=== PATIENT | male | born 1935 | race Caucasian/White ===

== ENCOUNTER 2016-09-08 08:56 | Emergency (ER) | payer OTHER ==
[2016-09-08 09:03] VITALS: RESP 14; TEMP 98.4
--- NOTE | 2016-09-08 09:13 | CPEKG ---
Heart Rate: 71 RR Interval: 845 P-R Interval: 156 QRSD Interval: 102 QT Interval: 412 QTC Interval: 448 P [place]: 61 QRS [place]: 59 T Wave [place]: 78 EKG Severity - ABNORMAL ECG - EKG Impression: ATRIAL-PACED COMPLEXES EKG Impression: LEFT ATRIAL ABNORMALITY EKG Impression: ABNRM R PROG, CONSIDER ASMI OR LEAD PLACEMENT Electronically Signed By: Yolis Swain 08-Sep-2016 16:48:44
[2016-09-08] MEDS ORDERED: ASPIRIN 81 MG CHEWABLE TAB ONE (09:15)
[2016-09-08] MEDS ORDERED: ASPIRIN 81 MG CHEWABLE TAB PO ONE (09:19)
--- NOTE | 2016-09-08 09:20 | EDPHY ---
H & P Stated Complaint: CP since resolved Time Seen by Provider: 09/08/16 09:03 HPI/ROS: CHIEF COMPLAINT: Chest pain HISTORY OF PRESENT ILLNESS: This is a 80-year-old male with known coronary artery disease status post AK about 12 years ago. He has pacemaker in place. His pacemaker was checked about 6 months ago and is due to be checked again this week. He presents this morning after experiencing substernal chest pain throughout the night. Began with discomfort mid afternoon yesterday, after eating Somali food. He thought that this was due to his GERD and he took ranitidine with some relief. However around 8:00 p.m. he again noticed substernal chest pain. He took a 2nd ranitidine and some Pepto-Bismol. Pain continued on and off throughout the night. It was associated with nausea and diaphoresis. There was no radiation. He states that this discomfort was similar to what he experienced with his myocardial infarction. He is no longer having chest pain but comes to the emergency department for further evaluation. His only complaint at this time is of dry mouth. REVIEW OF SYSTEMS: A ten point review of systems was performed and is negative with the exception of the items mentioned in the HPI. Source: Patient Exam Limitations: No limitations - Personal History Current Tetanus/Diphtheria Vaccine: Yes Current Tetanus Diphtheria and Acellular Pertussis (TDAP): Yes Tetanus Vaccine Date: 2005 - Medical/Surgical History Hx Asthma: Yes Hx Chronic Respiratory Disease: No Hx Diabetes: No Hx Cardiac Disease: Yes Hx Renal Disease: No Hx Cirrhosis: No Hx Alcoholism: No Hx HIV/AIDS: No Hx Splenectomy or Spleen Trauma: No Other PMH: AK, stents, pacemaker, CPAP, IBS, GERD, ?COPD - Social History Smoking Status: Former smoker - Physical Exam Exam: General Appearance: Alert. Vital signs reviewed. Blood pressure at triage 206 /140. Eyes: Pupils equal and round, no conjunctival injection, no discharge. Anicteric. ENT, Mouth: Mucous membranes are moist, no oropharyngeal erythema or edema. Neck: No lymphadenopathy, supple. Respiratory: Lungs are clear to auscultation; no wheezes, rales, or rhonchi. Cardiovascular: Regular rate and rhythm; no murmur, rub, or gallop. Gastrointestinal: Abdomen is soft and nontender, no masses or organomegaly, bowel sounds normal. Skin: Warm and dry, no rashes on exposed skin, normal color. Back: Nontender to palpation over the thoracolumbar spine. No CVAT. Extremities: No lower extremity edema, no calf tenderness or swelling. Neurological: Alert and oriented. Moving all four extremities easily and equally. Psychiatric: Normal affect. Constitutional: Initial Vital Signs Temperature (C) 36.9 C 09/08/16 09:01 Heart Rate 71 09/08/16 09:01 Respiratory Rate 14 09/08/16 09:01 Blood Pressure 206/140 H 09/08/16 09:01 O2 Sat (%) 97 09/08/16 09:01 O2 Delivery Mode Room Air Allergies/Adverse Reactions: Sulfa (Sulfonamide Antibiotics) Allergy (Unknown, Verified 02/25/15 10:32) Hives hydrochlorothiazide [From Dyazide] Allergy (Verified 02/25/15 10:32) triamterene [Triamterene] Allergy (Verified 02/25/15 10:32) POLLEN Allergy (Mild, Uncoded 02/25/15 10:32) RUNNY NOSE Home Medications: Medication Instructions Recorded Atorvastatin Calcium [Lipitor 40 40 mg PO HS 05/24/12 mg (*)] Budesonide/Formoterol 160/4.5 2 puffs IH BID 05/24/12 [Symbicort 160-4.5 Mcg Inh (*)] Cholecalciferol Vit D3 [Vitamin D3 1,000 units PO DAILY 05/24/12 (*)] Herbals/Supplements -Info Only 1 tab PO BID 05/24/12 Multivitamins [Multivitamin (*)] 1 tab PO DAILY 05/24/12 Polyethylene Glycol 3350 [Miralax 17 gm PO BID 05/24/12 17 gm (*)] Prasugrel HCl [Effient 10mg (*)] 10 mg PO DAILY 05/24/12 Ranitidine HCl [Ranitidine HCl 150 300 mg PO HS 05/24/12 mg] ESOMEPRAZOLE MAG TRIHYDRATE 40 mg PO DAILY 10/03/12 [NEXIUM] Hydrocodone Bit/Acetaminophen 1 tab PO Q6 PRN 10/03/12 [Vicodin 5/500] Albuterol [Proventil Inhaler HFA 1 - 2 puffs IH Q4H PRN 06/06/14 (*)] Aspirin [Aspirin 81mg (*)] 162 mg PO HS 06/06/14 Cetirizine [ZyrTEC 10 mg (*)] 10 mg PO HS 06/06/14 Citalopram [CeleXA 20 MG] 40 mg PO DAILY 06/06/14 AMITRIPTYLINE HCL 02/25/15 Medical Decision Making - Diagnostics EKG Interpretation: Twelve lead EKG interpreted by me in [facility]. Atrial paced rhythm. No change compared to previous. Imaging: Two view CXR viewed by me in PACS. No infiltrate, CHF, cardiomegaly. ED Course/Re-evaluation: 80 year old male with chest pain yesterday (now resolved) and known h/o CAD. He also has history of GERD. Evaluation in ED included EKG (paced, no change from previous), CXR that does not show etiology of chest pain, and labs with normal troponin. He remained pain free in the ED. I spoke with Dominguez Washington NP, and an appointment is being made for him this week. He also has an appointment for a pacemaker check this week (I do not suspect pacemaker failure). He understands that the etiology of his pain remains unclear. Cardiac source is less likely, given normal troponin more than six hours out from his last episode of chest pain. He is not interested in hospitalization for serial enzymes and understands the danger signs that should prompt his immediate return. He will continue all of his medications, including GERD medications. He was hypertensive at triage, at DC his BP was improved--143/74. In this setting I considered a ddx of chest pain including but not limited to myocardial ischemia, pulmonary embolus, chest wall pain, pleural inflammation, pulmonary infectious causes, and GERD/PUD. - Data Points Laboratory Results: Laboratory Results 09/08/16 09:22 09/08/16 09:22 Medications Given: Discontinued Medications Aspirin (Aspirin) 324 mg PO EDNOW ONE Stop: 09/08/16 09:20 Last Admin: 09/08/16 09:20 Dose: 324 mg Departure - Departure Disposition: Home, Routine, Self-Care Clinical Impression: GERD (gastroesophageal reflux disease) Qualifiers: Esophagitis presence: without esophagitis Qualified Code(s): K21.9 - Gastro- esophageal reflux disease without esophagitis Chest pain Qualifiers: Chest pain type: other chest pain Qualified Code(s): R07.89 - Other chest pain ; R07.8 - Other chest pain Condition: Good Instructions: Chest Pain (ED), Gastroesophageal Reflux Disease (ED) Additional Instructions: [facility] will call you with a time for an appointment this week. They would like for 1 of their doctors our nurse practitioner nurse to see you. You also need to keep the appointment that you have for your pacemaker check. If you develop any more chest pain you need to return to the emergency department immediately. Referrals: Mauricio Garcia MD [Primary Care Provider] - As per Instructions Chris Guzman MD [Medical Doctor] - As per Instructions
[2016-09-08 09:36] LABS: % IMMATURE GRANULYOCYTES 0.3 % (0.0-1.1); ABSOLUTE IMMATURE GRANULOCYTES 0.03 10^3/uL (0.00-0.10); ADD DIFF? NO; ADD MORPH? NO; ADD SCAN? NO; ATYPICAL LYMPHOCYTE FLAG 0 (0-99); FRAGMENT RBC FLAG 0 (0-99); HEMATOCRIT 42.6 % (40.0-51.0); HEMOGLOBIN 15.3 g/dL (13.7-17.5); LEFT SHIFT FLG 0 (0-99); LIPEMIA HEMOLYSIS FLAG 90 (0-99); MEAN CELL HEMOGLOBIN 32.8 pg (27.9-34.1); MEAN CELL HEMOGLOBIN CONCENTR. 35.9 g/dL (32.4-36.7); MEAN CELL VOLUME 91.4 fL (81.5-99.8); MEAN PLATELET VOLUME 10.2 fL (8.7-11.7); PLATELET CLUMPS FLAG 10 (0-99); PLATELET COUNT 189 10^3/uL (150-400); RED BLOOD CELL COUNT 4.66 10^6/uL (4.40-6.38); RED CELL DISTRIBUTION WIDTH 12.1 % (11.5-15.2)
[2016-09-08 09:58] LABS: ANION GAP 11 mEq/L (8-16); CALCIUM 9.4 mg/dL (8.5-10.4); CARBON DIOXIDE 25 mEq/l (22-31); CHLORIDE 95 mEq/L (97-110); CREATININE 0.7 mg/dL (0.7-1.3); GLOMERULAR FILTRATION RATE > 60; GLUCOSE 96 mg/dL (70-100); POTASSIUM 3.8 mEq/L (3.5-5.2); SODIUM 131 mEq/L (134-144)
[2016-09-08 10:10] LABS: TROPONIN I < 0.012 ng/mL (0-0.034)
[2016-09-08 12:34] VITALS: O2SAT 96
[2016-09-08 12:36] VITALS: BP 143/74; PULSE 70
== END 2016-09-08 12:35 | disposition home or self-care (01) ==
DX: K21.9 Gastro-esophageal reflux disease without esophagitis (principal); J45.909 Unspecified asthma, uncomplicated; I25.2 Old myocardial infarction; Z87.891 Personal history of nicotine dependence; Z79.82 Long term (current) use of aspirin; Z95.0 Presence of cardiac pacemaker

== ENCOUNTER → 2016-09-24 | Outpatient (CLI) | payer OTHER | LOC: BHFA 13:30 | PROVIDERS: ATTEND Internal Medicine Cardiovascular Disease | DX: I25.10 Atherosclerotic heart disease of native coronary artery without angina pectoris (principal) | CPT/HCPCS: 78452; 93017; A9500; J2785 ==

== ENCOUNTER 2016-10-17 07:22 | Observation (INO) | payer OTHER ==
[2016-10-17] MEDS ORDERED: FAMOTIDINE 20 MG TAB PO ONE (07:24)
[2016-10-17] MEDS ORDERED: DIAZEPAM 5 MG TAB PO ONE (07:24)
[2016-10-17] MEDS ORDERED: NS 1,000 ML IV ONE (07:24)
[2016-10-17] MEDS ORDERED: diphenhydrAMINE 25 MG CAP PO ONE ×2 (07:24→08:05)
[2016-10-17] MEDS ORDERED: ASPIRIN EC 325 MG TAB PO ONE ×2 (07:24→08:06)
--- NOTE | 2016-10-17 07:53 | CPEKG ---
Heart Rate: 71 RR Interval: 845 P-R Interval: 184 QRSD Interval: 104 QT Interval: 432 QTC Interval: 470 P [place]: 68 QRS [place]: 67 T Wave [place]: 74 EKG Severity - ABNORMAL ECG - EKG Impression: ATRIAL-PACED COMPLEXES EKG Impression: NONSPECIFIC T ABNORMALITIES, LATERAL LEADS Electronically Signed By: Timmy Antonio 17-Oct-2016 12:13:57
[2016-10-17] MEDS ORDERED: FAMOTIDINE 20 MG TAB ONE (08:05)
[2016-10-17] MEDS ORDERED: DIAZEPAM 5 MG TAB ONE (08:06)
[2016-10-17 08:09] LABS: % IMMATURE GRANULYOCYTES 0.4 % (0.0-1.1); ABSOLUTE IMMATURE GRANULOCYTES 0.03 10^3/uL (0.00-0.10); ADD DIFF? NO; ADD MORPH? NO; ADD SCAN? NO; ATYPICAL LYMPHOCYTE FLAG 0 (0-99); FRAGMENT RBC FLAG 0 (0-99); HEMATOCRIT 41.3 % (40.0-51.0); HEMOGLOBIN 14.4 g/dL (13.7-17.5); LEFT SHIFT FLG 0 (0-99); LIPEMIA HEMOLYSIS FLAG 90 (0-99); MEAN CELL HEMOGLOBIN 31.9 pg (27.9-34.1); MEAN CELL HEMOGLOBIN CONCENTR. 34.9 g/dL (32.4-36.7); MEAN CELL VOLUME 91.6 fL (81.5-99.8); MEAN PLATELET VOLUME 10.3 fL (8.7-11.7); PLATELET CLUMPS FLAG 10 (0-99); PLATELET COUNT 194 10^3/uL (150-400); RED BLOOD CELL COUNT 4.51 10^6/uL (4.40-6.38); RED CELL DISTRIBUTION WIDTH 12.2 % (11.5-15.2)
[2016-10-17 08:19] LABS: INR 1.26 (0.83-1.16); PROTIME(PATIENT) 15.8 SEC (12.0-15.0)
[2016-10-17 08:49] LABS: ANION GAP 8 mEq/L (8-16); CALCIUM 9.5 mg/dL (8.5-10.4); CARBON DIOXIDE 26 mEq/l (22-31); CHLORIDE 99 mEq/L (97-110); CHOLESTEROL 106 mg/dL (140-220); CHOLESTEROL/HDL RATIO 2.16 RATIO (1.00-4.97); CREATININE 0.7 mg/dL (0.7-1.3); GLOMERULAR FILTRATION RATE > 60; GLUCOSE 99 mg/dL (70-100); HIGH DENSITY LIPOPROTEIN 49 mg/dL (40-65); LDL/HDL RATIO 0.96 RATIO (1.00-3.64); LOW DENSITY LIPOPROTEIN 47 mg/dL (80-100); MAGNESIUM 1.9 mg/dL (1.6-2.3); NON-HIGH DENSITY LIPOPROTEIN 57 mg/dL (90-129); POTASSIUM 4.5 mEq/L (3.5-5.2); SODIUM 133 mEq/L (134-144); TRIGLYCERIDE 51 mg/dL (40-150); VERY LOW DENSITY LIPOPROTEINS 10 mg/dL (8-25)
[2016-10-17] MEDS ORDERED: LIDOCAINE 1% 30 ML SDV ONE (08:55)
[2016-10-17] MEDS ORDERED: MIDAZOLAM 2 MG/2 ML VIAL ONE ×3 (08:56→10:24)
[2016-10-17] MEDS ORDERED: IOPAMIDOL (ISOVUE-370) 150 ML BTL IV ONE ×2 (08:56→11:21)
[2016-10-17] MEDS ORDERED: fentaNYL 100 MCG/2 ML INJ ONE ×2 (08:56→09:39)
[2016-10-17] MEDS ORDERED: VERAPAMIL 5 MG/2 ML VIAL ONE (08:56)
[2016-10-17] MEDS ORDERED: HEPARIN 10,000 UNIT/10 ML MDV ONE (08:56)
--- NOTE | 2016-10-17 12:10 | CPEKG ---
Heart Rate: 70 RR Interval: 857 P-R Interval: 156 QRSD Interval: 100 QT Interval: 436 QTC Interval: 471 P [place]: 60 QRS [place]: 37 T Wave [place]: 58 EKG Severity - ABNORMAL ECG - EKG Impression: SINUS RHYTHM EKG Impression: ABNRM R PROG, CONSIDER ASMI OR LEAD PLACEMENT Electronically Signed By: Timmy Antonio 17-Oct-2016 12:13:45
[2016-10-17] MEDS ORDERED: ATROPINE SULFATE 1 MG/10 ML SYR IVP PRN (14:28)
[2016-10-17] MEDS ORDERED: TEMAZEPAM 15 MG CAP PO PRN (14:28)
[2016-10-17] MEDS ORDERED: NITROGLYCERIN 0.4 MG BTL SL PRN (14:28)
[2016-10-17] MEDS ORDERED: ONDANSETRON 4 MG/2 ML VIAL IVP PRN (14:28)
[2016-10-17] MEDS ORDERED: [UNRECOGNIZED DRUG - OTHER] EACHEYE PRN (14:29)
[2016-10-17] MEDS ORDERED: ALBUTEROL 60 PUFFS/8 GM MDI IH PRN (14:29)
[2016-10-17] MEDS ORDERED: PROPYLENE GLYCOL EACHEYE PRN (14:29)
[2016-10-17] MEDS ORDERED: IPRATROPIUM 0.06% NASAL SPRAY EACHNARE PRN (14:29)
[2016-10-17] MEDS ORDERED: PEG EACHEYE PRN (14:29)
[2016-10-17] MEDS ORDERED: CALCIUM CARBONATE 500 MG CHEWABLE TAB PO PRN (14:29)
--- NOTE | 2016-10-17 14:42 | PDDXCAT ---
Diagnostic Cath Note - . Date: 10/17/16 Rn Private Duty: Thomas Indication: Class I/II angina, intolerance to med therapy or failure to respond High-risk criteria on non-invasive testing: stress-induced moderate-size multiple perfusion defects - Procedure Access: right wrist Procedure: left heart catheterization, coronary angiography, left ventriculogram - Materials Left Heart Cath size: 5F Left Heart Cath materials: pigtail, other (SiteSeer) - Findings-Left Heart Catheterization LM: unobstructed LAD: luminal irregularities of 30% LCX: luminal irregularities of 30% RCA: 100% occlusion at the ostium. 95% stenosis in the mid vessel. Diffuse distal 50% stenosis EDP: 15 mm of mercury LVEF: 45% with an inferior aneurysmal akinetic segment Complications: none Estimated blood loss: <50ml Closure method: TR Band Assessment: Recurrent ostial RCA stenosis with InStent restenosis distally. Moderate nonobstructive atherosclerotic disease involving the LAD and circumflex. 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 Plan: Consider ad Hoc PCI of the RCA. Continue aggressive medical therapy. Intervention: After reviewing diagnostic angiograms was elected to proceed with gentle probing of the ostium of the right coronary to get a feel for how chronic the right coronary artery 100% occlusion was. Patient was anticoagulated with heparin. Using a 5 [place] AR1 guiding catheter the right coronary was selectively intubated. Using a 0.014 health care legal assistant 50 wire the ostium was gently probed. The guide catheter prolapse backwards. The guidewire did advanced into the [place] vessel. The wire easily passed to the mid RCA. It would not cross the occlusion in the mid segment. A 3 mm balloon was placed on the wire. It was able to cross the ostial lesion but would not go further. It was elected to proceed with a balloon inflation at this point. For details of the intervention please see attached computer report. The initial inflation revealed improvement in luminal diameter. There was no improvement in guide catheter support. The guidewire would not advance any further. It was withdrawn. Attempts at crossing with a 0.014 Kinetix wire were made but similarly would not cross the mid segment. A 3.5 mm balloon was again used to dilate the ostium and proximal segment. Angiography revealed JAGDEEP grade 3 flow with improvement in ostial stenosis. Attempts at placing a 3.5 by 16 mm synergy stent in the ostium was made but the stent would not cross the ostium. It was withdrawn and was notably distorted. A 2nd 3.5 mm synergy stent was attempted to be placed. It would also not cross. Again on withdrawal into the guiding catheter the stent was distorted. The entire system was withdrawn. It was elected to up size to a 6 Mohawk AL1 guiding catheter. This was used to intubate the right coronary artery. Attempts at crossing with the 0.014 Kinetix wire were made but failed. A new 0.014 health care legal assistant 50 wire was used and crossed the ostium and was placed in the mid vessel. Despite excellent support it would not cross the lesion. Attempts at using a 1.25 balloon as support were made but again the vessel was so rigid that the wire would not cross. A 4 mm balloon was yet used to again dilate the ostium. It was elected to proceed with stenting of the ostium. The hope was that this would improve improved guide catheter support. A 4 mm x 16 synergy stent was placed in the ostium. It was deployed using a single inflation. At this point was elected to stop. The balloon was very difficult to withdrawn and the catheter. In fact it would not come back. The guiding catheter would not withdraw. With gentle force the guidewire actually snapped leaving a small tip in the ostium of the right coronary. And the entire system came back into the femoral sheath. A small retained piece of the guidewire was left in the proximal right coronary stent. There was JAGDEEP grade 3 flow. At this point was elected to stop. Patient will be brought back and days will approach the mid vessel from the groin if he has any change in clinical status. For sure we could continue with medical therapy at this point. Conclusions: PCI and stenting of the ostium of the RCA in the setting of complete occlusion with placement of a 4 mm x 16 synergy stent. Procedure complicated by retained tip of the coronary wire which snapped on withdrawal. Residual 90% stenosis of the mid RCA with InStent restenosis. . Recommendations are for continued aggressive medical therapy. Considerations for repeat intervention in a week to 10 days from the leg. Patient Problems: Problems Problem Status Onset Chest pain Acute Coronary artery disease Acute Stented coronary artery Acute Pacemaker Acute Chest pain Acute GERD (gastroesophageal reflux disease) Acute
[2016-10-17] MEDS: PRASUGREL HCL 10 MG TAB PO SCH (17:35)
[2016-10-17] MEDS ORDERED: CETIRIZINE 10 MG TAB PO SCH (18:00)
[2016-10-17] MEDS ORDERED: ASPIRIN 81 MG CHEWABLE TAB PO SCH (18:00)
[2016-10-17] MEDS ORDERED: ATORVASTATIN CALCIUM 40 MG TAB PO SCH (18:00)
[2016-10-17] MEDS ORDERED: NON-FORMULARY NEW DRUG (Ranitidine Hcl [Ranitidine Hcl 150 Mg] 150 MG) PO SCH (21:00)
[2016-10-17] MEDS ORDERED: AMITRIPTYLINE HCL 25 MG TAB PO SCH (21:00)
[2016-10-17] MEDS: FAMOTIDINE 20 MG TAB PO SCH (21:32)
[2016-10-17] MEDS: BUDESONIDE/FORMOTEROL 160/4.5 60 PUFFS/MDI IH SCH (22:32)
[2016-10-18 04:05] LABS: % IMMATURE GRANULYOCYTES 0.4 % (0.0-1.1); ABSOLUTE IMMATURE GRANULOCYTES 0.04 10^3/uL (0.00-0.10); ADD DIFF? NO; ADD MORPH? NO; ADD SCAN? NO; ATYPICAL LYMPHOCYTE FLAG 0 (0-99); FRAGMENT RBC FLAG 0 (0-99); HEMATOCRIT 35.5 % (40.0-51.0); HEMOGLOBIN 12.5 g/dL (13.7-17.5); LEFT SHIFT FLG 0 (0-99); LIPEMIA HEMOLYSIS FLAG 90 (0-99); MEAN CELL HEMOGLOBIN 32.3 pg (27.9-34.1); MEAN CELL HEMOGLOBIN CONCENTR. 35.2 g/dL (32.4-36.7); MEAN CELL VOLUME 91.7 fL (81.5-99.8); MEAN PLATELET VOLUME 10.7 fL (8.7-11.7); PLATELET CLUMPS FLAG 10 (0-99); PLATELET COUNT 173 10^3/uL (150-400); RED BLOOD CELL COUNT 3.87 10^6/uL (4.40-6.38); RED CELL DISTRIBUTION WIDTH 12.5 % (11.5-15.2)
[2016-10-18 04:19] LABS: ALBUMIN 3.2 g/dL (3.5-5.0); ANION GAP 7 mEq/L (8-16); ASPARTATE AMINOTRANSFERASE 36 IU/L (17-59); BILIRUBIN,TOTAL 0.5 mg/dL (0.1-1.4); CALCIUM 8.8 mg/dL (8.5-10.4); CARBON DIOXIDE 23 mEq/l (22-31); CHLORIDE 99 mEq/L (97-110); CREATININE 0.7 mg/dL (0.7-1.3); GLOMERULAR FILTRATION RATE > 60; GLUCOSE 107 mg/dL (70-100); LACTATE DEHYDROGENASE 651 IU/L (313-618); MAGNESIUM 1.8 mg/dL (1.6-2.3); SODIUM 129 mEq/L (134-144)
[2016-10-18] MEDS: PRASUGREL HCL 10 MG TAB PO SCH (08:42)
[2016-10-18] MEDS: FAMOTIDINE 20 MG TAB PO SCH (08:42)
--- NOTE | 2016-10-18 08:43 | CPEKG ---
Heart Rate: 71 RR Interval: 845 P-R Interval: 168 QRSD Interval: 102 QT Interval: 420 QTC Interval: 457 P [place]: 64 QRS [place]: 50 T Wave [place]: 80 EKG Severity - ABNORMAL ECG - EKG Impression: ATRIAL-PACED COMPLEXES EKG Impression: BORDERLINE INFERIOR Q WAVES Electronically Signed By: Timmy Antonio 19-Oct-2016 07:36:26
[2016-10-18] MEDS: BUDESONIDE/FORMOTEROL 160/4.5 60 PUFFS/MDI IH SCH (08:44)
[2016-10-18] MEDS ORDERED: NON-FORMULARY NEW DRUG (Citalopram Hydrobromide [Citalopram Hbr] 40 MG) PO SCH (09:00)
[2016-10-18] MEDS ORDERED: OMEGA-3 FATTY ACIDS 1,000 MG CAP PO SCH (09:00)
[2016-10-18] MEDS ORDERED: CITALOPRAM 20 MG TAB PO SCH (09:00)
[2016-10-18] MEDS ORDERED: CHOLECALCIFEROL VIT D3 1,000 UNITS TAB PO SCH (09:00)
[2016-10-18] MEDS ORDERED: POLYETHYLENE GLYCOL 3350 17 GM PKT PO SCH (09:00)
[2016-10-18] MEDS ORDERED: CYANO/VITAMIN B12 100 MCG TAB PO SCH (09:00)
[2016-10-18] MEDS ORDERED: MULTIVITAMINS 1 EACH TAB PO SCH (09:00)
--- NOTE | 2016-10-18 11:08 | GDS ---
[f rep st] DISCHARGE SUMMARY ADMIT DIAGNOSES: 1. Coronary artery disease. 2. Gastroesophageal reflux disease. 3. Pacemaker. 4. Previous stent to left anterior descending. DISCHARGE DIAGNOSES: 1. Status post cardiac angiogram with stent to the right coronary artery. 2. Positive myocardial perfusion imaging. 3. Gastroesophageal reflux disease. 4. Pacemaker. HOSPITAL COURSE: This gentleman is well known to [facility]. He has a longstanding history of coronary artery disease with previous stent placement. He was seen in the clinic earlier this month with complaints of chest pain. He had a cardiac nuclear stress test showing RCA ischemia. He was set up for cardiac angiogram with Dr. Chris Guzman, which was performed on October 17, 2016. He did find occlusive disease in the right coronary artery. A drug- eluting stent was placed. There was difficulty with the catheter tip, which broke off as he was pulling out the catheter. There were no complications resulting. He has no shortness of breath. No chest pain. Vital signs have been stable. He has been up ambulating in the room with no dizziness, lightheadedness. He has had no chest pain. This morning he is eating well. Right wrist access point has mild ecchymosis with no bleeding. No tenderness. Radial ulnar pulses are intact. He has good peripheral capillary refill. He has no numbness of the fingers or hand. At this time, he currently is stable for discharge. PHYSICAL EXAMINATION: VITAL SIGNS: On day of discharge, blood pressure 118/64 , heart rate 70 and regular. He has atrial paced rhythm on telemetry. Oxygen saturation 97%. Heart rate is regular. No murmurs, rubs, gallops. LUNGS: Sounds are clear to auscultation. No wheezes, rales, or rhonchi. EXTREMITIES: Right wrist catheter access point has good pulses, both radial and ulnar. He has good capillary refill of the fingers, and no hand pain or numbness. Peripheral pulses are intact bilaterally. ALLERGIES: Sulfa and hydrochlorothiazide. DISCHARGE MEDICATIONS: He will resume herbal supplements. Ranitidine 150 mg twice daily. Effient 10 mg daily. MiraLAX 17 g daily. Multivitamin daily. Vitamin D3 1,000 units daily. Symbicort 160/4.5 two puffs inhaled twice daily. Lipitor 40 mg orally daily. Cetirizine 10 mg daily. Proventil inhaler 1-2 puffs inhaled every 4 hours as needed. Aspirin 162 mg daily. Elavil 25 mg at bedtime. Atrovent 2 sprays each nares daily as needed. Nitrostat 0.4 mg sublingual every 5 minutes x3. Vitamin B12 100 mcg daily. Tums 500 mg daily as needed. [place]-3 fatty acid 1,000 mg daily. Citalopram 40 mg daily. CARDIAC ANGIOGRAM: On 10/17/[address] Chris Guzman. INDICATION: Class 1/class 2 angina, intolerance to medical therapy, positive MPI. ACCESS SITE: Right wrist. Left main was unobstructed. LAD showed luminal irregularities of 30%. Left circumflex luminal irregularities of 30%. RCA 100% occlusion at the ostium, 95 % stenosis in the mid vessel, diffuse distal 50% stenosis. LVEF 45% with an inferior aneurysmal akinetic segment. COMPLICATIONS: None. CLOSURE: TR band. ASSESSMENT: Recurrent right coronary artery stenosis with in-stent restenosis distally. Moderate nonobstructive atherosclerotic disease involving the LAD and circumflex. 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 Consider Ad-hoc PCI of the RCA. Continue aggressive medical therapy. Intervention right coronary artery with 100% occlusion wire was probed gently at the ostium. Guide catheter prolapsed backwards. The guidewire did advance into the mid RCA easily. The area was dilated with 3 mm balloon and was able to cross the ostial lesion, but no further. Balloon inflation was done at this point. Angiography revealed JAGDEEP grade 3 flow with improvement in the ostial stenosis. Attempt placement of Synergy stent in the ostium was made. Stent would not cross the ostium. After several attempts, a stent was placed in the ostium using a 4 mm x 16 Synergy stent. There was difficulty withdrawing the guiding catheter, and a small tip was left in the ostium of the right coronary artery. JAGDEEP grade 3 flow was present at that point. Plan to bring the patient back in a few days to approach the midvessel from the groin if he has changes in status, or if he has good tolerance will plan to continue with medical therapy. DISCHARGE PLAN: 1. He will follow up in the clinic in 5-7 days. 2. Right wrist post catheterization precautions were reviewed with him verbally and written. He is to avoid any heavy lifting, pushing, pulling greater than 10 pounds for 48 hours. No submerging right hand and wrist in tubs of water for the next 48-72 hours. Should he have bleeding to the wrist site, he is told heavy pressure and go to the emergency room. 3. Should he have any questions or concerns, he will call the clinic. At this time, he currently is stable for discharge. 4. He had a decreased EF and will plan to add Carvedilol at office visit in 5 days. /[id number]/MODL MTDD
[2016-10-18 12:29] VITALS: BP 125/70; RESP 16; TEMP 97.5; O2SAT 99
[2016-10-18 17:05] VITALS: PULSE 71
== END 2016-10-18 13:34 | disposition home or self-care (01) ==
LOC: FCATH 07:22 → F2W 11:48
PROVIDERS: ADMIT Internal Medicine Interventional Cardiology; ATTEND Internal Medicine Interventional Cardiology
DX: I25.10 Atherosclerotic heart disease of native coronary artery without angina pectoris (principal); K21.9 Gastro-esophageal reflux disease without esophagitis; I10 Essential (primary) hypertension; E78.5 Hyperlipidemia, unspecified; Z95.0 Presence of cardiac pacemaker; Z95.5 Presence of coronary angioplasty implant and graft
CPT/HCPCS: 93005; 93458; C1725; C1769; C1874; C1887; C9600; J1644; J2250; J3010; Q9967

== ENCOUNTER → 2016-11-04 | Outpatient (CLI) | payer OTHER | LOC: BHFA 16:15 | PROVIDERS: ATTEND Internal Medicine Cardiovascular Disease | DX: I35.1 Nonrheumatic aortic (valve) insufficiency (principal) ==

== ENCOUNTER 2016-11-18 09:48 | Observation (INO) | payer OTHER ==
[2016-11-18] MEDS ORDERED: NS 1,000 ML IV ONE (10:05)
[2016-11-18] MEDS ORDERED: DIAZEPAM 5 MG TAB PO ONE (10:05)
[2016-11-18] MEDS ORDERED: FAMOTIDINE 20 MG TAB PO ONE (10:05)
[2016-11-18] MEDS ORDERED: ASPIRIN EC 325 MG TAB PO ONE ×2 (10:05→10:23)
[2016-11-18] MEDS ORDERED: diphenhydrAMINE 25 MG CAP PO ONE ×2 (10:05→10:23)
--- NOTE | 2016-11-18 10:19 | CPEKG ---
Heart Rate: 72 RR Interval: 833 P-R Interval: 196 QRSD Interval: 96 QT Interval: 444 QTC Interval: 486 P [place]: 61 QRS [place]: 43 T Wave [place]: 74 EKG Severity - ABNORMAL ECG - EKG Impression: ATRIAL-PACED COMPLEXES EKG Impression: BORDERLINE PROLONGED QT INTERVAL Electronically Signed By: Nde Fisher 20-Nov-2016 12:03:16
[2016-11-18] MEDS ORDERED: FAMOTIDINE 20 MG TAB ONE (10:23)
[2016-11-18] MEDS ORDERED: DIAZEPAM 5 MG TAB ONE (10:23)
[2016-11-18 10:39] LABS: % IMMATURE GRANULYOCYTES 0.4 % (0.0-1.1); ABSOLUTE IMMATURE GRANULOCYTES 0.03 10^3/uL (0.00-0.10); ADD DIFF? NO; ADD MORPH? NO; ADD SCAN? NO; ATYPICAL LYMPHOCYTE FLAG 0 (0-99); FRAGMENT RBC FLAG 0 (0-99); HEMOGLOBIN 13.8 g/dL (13.7-17.5); LEFT SHIFT FLG 0 (0-99); LIPEMIA HEMOLYSIS FLAG 90 (0-99); MEAN CELL HEMOGLOBIN CONCENTR. 35.4 g/dL (32.4-36.7); MEAN CELL VOLUME 93.3 fL (81.5-99.8); MEAN PLATELET VOLUME 9.7 fL (8.7-11.7); PLATELET CLUMPS FLAG 10 (0-99); PLATELET COUNT 174 10^3/uL (150-400); RED BLOOD CELL COUNT 4.18 10^6/uL (4.40-6.38); RED CELL DISTRIBUTION WIDTH 12.4 % (11.5-15.2)
[2016-11-18 10:46] LABS: INR 1.28 (0.83-1.16)
[2016-11-18 10:57] LABS: ANION GAP 6 mEq/L (8-16); CARBON DIOXIDE 27 mEq/l (22-31); CHLORIDE 97 mEq/L (97-110); CHOLESTEROL 96 mg/dL (140-220); CHOLESTEROL/HDL RATIO 1.75 RATIO (1.00-4.97); CREATININE 0.6 mg/dL (0.7-1.3); GLOMERULAR FILTRATION RATE > 60; GLUCOSE 97 mg/dL (70-100); HIGH DENSITY LIPOPROTEIN 55 mg/dL (40-65); LDL/HDL RATIO 0.64 RATIO (1.00-3.64); LOW DENSITY LIPOPROTEIN 35 mg/dL (80-100); NON-HIGH DENSITY LIPOPROTEIN 41 mg/dL (90-129); POTASSIUM 4.5 mEq/L (3.5-5.2); SODIUM 130 mEq/L (134-144); TRIGLYCERIDE 33 mg/dL (40-150); VERY LOW DENSITY LIPOPROTEINS 6 mg/dL (8-25)
[2016-11-18] MEDS ORDERED: IOPAMIDOL (ISOVUE-370) 150 ML BTL IV ONE ×3 (12:15→13:41)
[2016-11-18] MEDS ORDERED: NITROGLYCERIN 1,500 MCG/15 ML VIAL MISC ONE (12:15)
[2016-11-18] MEDS ORDERED: BIVALIRUDIN 250 MG/5 ML VIAL IV ONE (12:15)
[2016-11-18] MEDS ORDERED: fentaNYL 100 MCG/2 ML INJ ONE (12:16)
[2016-11-18] MEDS ORDERED: MIDAZOLAM 2 MG/2 ML VIAL ONE ×2 (12:16→13:12)
[2016-11-18] MEDS ORDERED: LIDOCAINE 1% 300 MG/30 ML SDV ONE (12:16)
[2016-11-18] MEDS ORDERED: HEPARIN 10,000 UNIT/10 ML MDV ONE (13:10)
[2016-11-18] MEDS ORDERED: HYDROCODONE/APAP 5/325 TAB PO PRN (15:07)
[2016-11-18] MEDS ORDERED: OXYCODONE/APAP 5/325 TAB PO PRN (15:07)
[2016-11-18] MEDS ORDERED: ATROPINE SULFATE 1 MG/10 ML SYR IVP PRN (15:07)
[2016-11-18] MEDS ORDERED: NITROGLYCERIN 0.4 MG BTL SL PRN (15:07)
[2016-11-18] MEDS ORDERED: ONDANSETRON 4 MG/2 ML VIAL IVP PRN (15:07)
[2016-11-18] MEDS ORDERED: ALBUTEROL 60 PUFFS/8 GM MDI IH PRN (15:08)
[2016-11-18] MEDS ORDERED: IPRATROPIUM 0.06% NASAL SPRAY EACHNARE PRN (15:08)
--- NOTE | 2016-11-18 15:14 | PDDXCAT ---
Diagnostic Cath Note - . Date: 11/18/16 Public Health Veterinarian: Thomas Indication: Class I/II angina, intolerance to med therapy or failure to respond - Procedure Access: right groin Procedure: left heart catheterization, coronary angiography - Materials Left Heart Cath size: 8F Left Heart Cath materials: other (see intervention) - Findings-Left Heart Catheterization LM: Unobstructed LAD: 65% mid LAD stenosis LCX: Unobstructed RCA: 100% occluded at the origin with evidence of prior coronary intervention wire Complications: None Estimated blood loss: <50ml Closure method: manual pressure Assessment: Recurrent stenosis of the dominant right coronary artery. Moderate LAD disease. Plan: Repeat attempted PCI of the right coronary Intervention: After reviewing diagnostic angiograms elected proceed with attempted PCI. Patient was anticoagulated with heparin. Therapeutic ACT was obtained. Using an 8 Kos[place] JR4 guide attempts at cannulating the right coronary artery were made but failed. We were able to engage the right coronary with a 8 [place] right Amplatz catheter. This revealed a complete occlusion. This would not fit coaxial. A 8 Kos[place] Kys right catheter was used to engage the right coronary. Numerous attempts at passing a guidewire into the right coronary artery were made but failed due to the chronic occlusion. Films were reviewed with of cardiothoracic surgery. It was elected to stop and consider him for bypass surgery. Conclusions: Complete occlusion of the right coronary artery at the ostium. Failed PCI. Recommendations are for coronary artery bypass grafting. Patient Problems: Problems Problem Status Onset Chest pain Acute Coronary artery disease Acute Stented coronary artery Acute Pacemaker Acute Chest pain Acute GERD (gastroesophageal reflux disease) Acute
[2016-11-18] MEDS ORDERED: ATORVASTATIN CALCIUM 40 MG TAB PO SCH (18:00)
[2016-11-18] MEDS ORDERED: NON-FORMULARY NEW DRUG (Ranitidine Hcl [Ranitidine Hcl 150 Mg] 150 MG) PO SCH (21:00)
[2016-11-18] MEDS: FAMOTIDINE 20 MG TAB PO SCH (21:03)
[2016-11-18] MEDS: METOPROLOL TARTRATE 50 MG TAB PO SCH (21:03)
[2016-11-18] MEDS: BUDESONIDE/FORMOTEROL 160/4.5 60 PUFFS/MDI IH SCH (21:52)
[2016-11-19 08:06] VITALS: O2SAT 96
[2016-11-19] MEDS: BUDESONIDE/FORMOTEROL 160/4.5 60 PUFFS/MDI IH SCH (08:41)
[2016-11-19 08:55] VITALS: PULSE 72
[2016-11-19] MEDS ORDERED: CHOLECALCIFEROL VIT D3 1,000 UNITS TAB PO SCH (09:00)
[2016-11-19] MEDS ORDERED: PRASUGREL HCL 10 MG TAB PO SCH (09:00)
[2016-11-19] MEDS ORDERED: NON-FORMULARY NEW DRUG (Citalopram Hydrobromide [Citalopram Hbr] 40 MG) PO SCH (09:00)
[2016-11-19] MEDS ORDERED: CITALOPRAM 20 MG TAB PO SCH (09:00)
[2016-11-19] MEDS ORDERED: CYANO/VITAMIN B12 1000 MCG TAB PO SCH (09:00)
[2016-11-19] MEDS: METOPROLOL TARTRATE 50 MG TAB PO SCH (09:43)
[2016-11-19] MEDS: FAMOTIDINE 20 MG TAB PO SCH (09:43)
--- NOTE | 2016-11-19 10:03 | PDDCSUM ---
Discharge Summary Discharge Summary: Admission date: 11/18/2016. Discharge date: 11/19/2016. Admission diagnosis crescendo angina. Discharge diagnosis crescendo angina with complete occlusion of the right coronary artery and failed PCI, moderate LAD disease awaiting coronary artery bypass grafting. Procedures done during this hospitalization left heart catheterization with attempted PCI of the right coronary. Hospital course: Mr. Feliz was admitted to the hospital electively for attempted PCI and stenting of the chronically occluded right coronary artery attempts were made but failed. This was done from the right groin using 8 Arabic sheaths. With inability to cross the obstructive lesion mechanical laboratory technician consultation was obtained with cardiothoracic surgery who concurred that bypass grafting of the right coronary artery and likely mid LAD would be warranted. This is in the setting of mildly reduced LV systolic function and crescendo symptoms. This was discussed with the patient today. He is in agreement. Physical examination revealed a heart rate of 70 blood pressure is 120/70. Chest is clear. Cardiac exam showed a regular rate and rhythm. Puncture site was healing well with mild ecchymosis. Distal pulses were intact. Plan for cardiothoracic consultation with Dr. Woody. Bypass surgery to be scheduled. In the short term we will up titrate beta-sai with clinical follow-up.
[2016-11-19 10:47] VITALS: BP 123/79; RESP 15; TEMP 98.1
--- NOTE | 2016-11-19 13:21 | GCON ---
[f rep st] CONSULTATION DATE OF CONSULTATION: 11/19/2016 REFERRING PHYSICIAN: Chris Guzman MD The patient seen at the request of Dr. Guzman with the patient's permission. IMPRESSION: 1. Crescendo angina with evidence of 3 vessel disease and mild LV dysfunction. 2. 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 Status post multiple ablat ions. 3. Gastroesophageal reflux disease. 4. Permanent pacemaker. 5. Multiple prior stents. RECOMMENDATIONS: This gentleman should undergo coronary artery revascularization at a 2% risk. Alte rnatives include continued medical therapy. I do believe he has significant obstructive lesions in his LAD which may be contributing to his angina and, because of concern about proximal disease, I wi ll also graft to circumflex at the time of doing his right coronary artery. CHIEF COMPLAINT: A very pleasant gentleman, well known to Dr. Guzman, presented for stenting of h is right coronary artery after recent stent placement, with recurrence of his exertional angina. PAST MEDICAL HISTORY: As stated. SURGERIES: Were not documented, but include multiple prior stents. ALLERGIES: Dyazide and sulfonamides. CURRENT MEDICATION: Current medications include Effient, amitriptyline, isosorbide dinitrate, Lipit or, nitroglycerin, Symbicort and Ventolin HFA. SOCIAL HISTORY: He is single and lives alone. Has no children. He exercises 3-5 times a week. He is not sexually active. He is a former smoker. Not currently smoking. He does have a history of sleep apnea, depression, mild obesity, arthritis and previous subdural hematoma. He also has a hist ory of BPH and asthma. PHYSICAL EXAMINATION: GENERAL: An alert 80-year-old gentleman in no apparent distress. VITAL SIGN S: Blood pressure 123/79, pulse 72, respirations 15, O2 saturation 96% on room air. HEENT: Normoc ephalic. MI, EOMI. Carotid ultrasounds are pending. HEART: Rate is regular with a soft 2/6 sy stolic ejection murmur across the precordium. LUNGS: Clear. Echocardiogram reveals mild AI and no significant valvular disease. ABDOMEN: Soft, nontender. Bowel sounds are active. RECTAL AND GEN ITAL: Deferred. NEUROLOGIC: Grossly intact. Peripheral pulses are 1+ and symmetrical. He has no edema, no varicosities. LAB: Lab work reveals hematocrit of 49 and creatinine 0.6. Sodium 130. LFTs are relatively normal . /[id number]/MODL
== END 2016-11-19 15:20 | disposition home or self-care (01) ==
LOC: FCATH 09:48 → F2W 14:03
PROVIDERS: ADMIT Internal Medicine Interventional Cardiology; ATTEND Internal Medicine Interventional Cardiology
PROC: 4A023N7 Measurement of Cardiac Sampling and Pressure, Left Heart, Percutaneous Approach (ICD-10-PCS; principal; 2016-11-18)
DX: I25.110 Atherosclerotic heart disease of native coronary artery with unstable angina pectoris (principal); I25.82 Chronic total occlusion of coronary artery; E78.5 Hyperlipidemia, unspecified; I10 Essential (primary) hypertension; K21.9 Gastro-esophageal reflux disease without esophagitis; K58.9 Irritable bowel syndrome, unspecified; J45.20 Mild intermittent asthma, uncomplicated; G47.30 Sleep apnea, unspecified; F32.9 Major depressive disorder, single episode, unspecified; N40.0 Benign prostatic hyperplasia without lower urinary tract symptoms; Z95.5 Presence of coronary angioplasty implant and graft; Z95.0 Presence of cardiac pacemaker; Z87.891 Personal history of nicotine dependence
CPT/HCPCS: 93005; 93880; C1760; C1769; C1887; J1644; J2250; J3010; Q9967; J0583

== ENCOUNTER 2016-12-05 08:28 | Inpatient (IN) | payer OTHER ==
[~2016-12-05 08:28] MED LIST: AMINOCAPROIC ACID 5 GM/20 ML VIAL IV ONE; CITRATE DEXTROSE SOLN 500 ML BAG MISC ONE; INSULIN REGULAR HUMAN 100 UNIT in NS 100 ML IV ONE; MANNITOL 25% 12.5 GM/50 ML VIAL IV ONE; PHENYLEPHRINE HCL 50 MG in NS 250 ML IV ONE; PROPOFOL 200 MG/20 ML VIAL ONE; ROCURONIUM 100 MG/10 ML VIAL ONE; SODIUM BICARBONATE 20 MEQ, LIDOCAINE 1% 10 ML in NORMOSOL-R 1,000 ML MISC ONE; VERAPAMIL 5 MG, NITROGLYCERIN 2.5 MG, HEPARIN 500 UNIT, SODIUM BICARBONATE 0.2 MEQ in L... MISC ONE; ceFAZolin 2 GM/DEXTROSE 100 ML IV ONE; fentaNYL 100 MCG/2 ML INJ ONE
[2016-12-05] MEDS ORDERED: niCARdipine/NACL 200 ML IV ONE (08:42)
[2016-12-05] MEDS ORDERED: LR 1,000 ML IV ONE (08:44)
[2016-12-05] MEDS ORDERED: LIDOCAINE 1% 2 ML INJ ID PRN (08:44)
[2016-12-05] MEDS ORDERED: PAPAVERINE HCL 60 MG/2 ML SDV ONE (09:53)
[2016-12-05] MEDS ORDERED: MINERAL OIL 10 ML VIAL ONE (09:53)
[2016-12-05] MEDS ORDERED: VERAPAMIL 5 MG/2 ML VIAL ONE (09:53)
[2016-12-05] MEDS ORDERED: MIDAZOLAM 2 MG/2 ML VIAL IVP ONE (10:24)
--- NOTE | 2016-12-05 10:30 | PDANEPAE ---
ANE History of Present Illness cad ANE Past Medical History - Cardiovascular History Hx Hypertension: No Hx Arrhythmias: Yes Hx Chest Pain: No Hx Coronary Artery / Peripheral Vascular Disease: Yes Hx CHF / Valvular Disease: No Hx Palpitations: No - Pulmonary History Hx COPD: No Hx Asthma/Reactive Airway Disease: Yes Hx Recent Upper Respiratory Infection: No Hx Oxygen in Use at Home: No - Neurologic History Hx Cerebrovascular Accident: No Hx Seizures: No Hx Dementia: No - Endocrine History Hx Diabetes: No - Renal History Hx Renal Disorders: No - Liver History Hx Hepatic Disorders: Yes - Neurological & Psychiatric Hx Hx Neurological and Psychiatric Disorders: No - Cancer History Hx Cancer: No - Congenital Disorder History Hx Congenital Disorders: No - GI History Hx Gastrointestinal Disorders: Yes - Chronic Pain History Chronic Pain: Yes (back) ANE Review of Systems - Exercise capacity METS (RN): 3 METS - Pacemaker Pacemaker Type: Permanent Pacer/Defib Pacemaker Medical Coder: Medtronic Pacemaker Model: Medtronic Sensia Pacemaker Mode: DDDR Pacemaker Set Rate: 70 Date Pacemaker Last Checked: 09/15/16 ANE Patient History - Allergies Allergies/Adverse Reactions: Sulfa (Sulfonamide Antibiotics) Allergy (Unknown, Verified 02/25/15 10:32) Hives hydrochlorothiazide [From Dyazide] Allergy (Verified 02/25/15 10:32) triamterene [Triamterene] Allergy (Verified 02/25/15 10:32) POLLEN Allergy (Mild, Uncoded 02/25/15 10:32) RUNNY NOSE - Home Medications Home Medications: Atorvastatin Calcium [Lipitor 40 mg (*)] 40 mg PO DAILY18 05/24/12 [Last Taken 1 Day Ago] Budesonide/Formoterol 160/4.5 [Symbicort 160-4.5 Mcg Inh (*)] 2 puffs IH BID 08/31 [Last Taken 12/05/16] Cholecalciferol Vit D3 [Vitamin D3 (*)] 1,000 units PO DAILY 05/24/12 [Last Taken 12/04/16] Herbals/Supplements -Info Only 1 tab PO DAILY 05/24/12 [Last Taken 12/04/16] Multivitamins [Multivitamin (*)] 1 tab PO DAILY 05/24/12 [Last Taken 12/04/16] Ranitidine HCl [Ranitidine HCl 150 mg] 150 mg PO BID 12/03/12 [Last Taken ] Albuterol [Proventil Inhaler HFA (*)] 1 - 2 puffs IH Q4H PRN 06/06/14 [Last Taken 12/05/16] Citalopram Hydrobromide [Citalopram HBr] 40 mg PO DAILY 10/17/16 [Last Taken ] Ipratropium 0.06% Nasal [Atrovent 0.06% Nasal] 2 sprays EACHNARE DAILY PRN 10/17 [Last Taken 12/05/16] Cyanocobalamin [Vitamin B12 (*)] 1,000 mcg PO DAILY 11/18/16 [Last Taken ] HYDROcodone/CHLORPHEN P-STIREX [Hydrocodone-Chlorphen ER Susp] 5 - 10 ml PO DAILY PRN 11/18/16 [Last Taken 12/04/16] Isosorbide Mononitrate [Imdur 30 mg (*)] 30 mg PO DAILY 11/18/16 [Last Taken ] Nitroglycerin [Nitrostat 0.4 mg (*)] 0.4 mg SL ONCE PRN 11/18/16 [Last Taken ] Propylene Glycol/Peg 400 [Systane 0.3-0.4% Eye Drops] 1 drop EACHEYE PRN PRN [Last Taken 12/04/16] - NPO status NPO Since - Liquids (Date): 12/04/16 NPO Since - Liquids (Time): 18:00 NPO Since - Solids (Date): 12/04/16 NPO Since - Solids (Time): 18:00 - Smoking Hx Smoking Status: Former smoker - Family Anes Hx Family Hx Anesthesia Complications: NEG ANE Labs/Vital Signs - Vital Signs Blood Pressure: 134/73 Heart Rate: 80 Respiratory Rate: 12 O2 Sat (%): 96 Height: 168 cm Weight: 85.7 kg ANE Physical Exam - Airway Mallampati Score: Class 2 Mouth exam: normal dental/mouth exam - Pulmonary Pulmonary: no respiratory distress - Cardiovascular Cardiovascular: regular rate and rhythym - ASA Status ASA Status: III ANE Anesthesia Plan Anesthesia Plan: general endotracheal anesthesia Lines/Monitors: arterial line, central line
[2016-12-05] MEDS: MUPIROCIN 2% 22 GM OINT NS SCH ×2 (10:39→22:01)
--- NOTE | 2016-12-05 10:43 | PDHPUP ---
History & Physical Update H&P update statement: This history and physical update is based on an assessment of the patient which was completed after admission or registration (within 24 hours), but prior to the surgery/procedure. H&P update: H&P reviewed & patient examined H&P changes: 2 episodes of exertional angina yest, resolving with NTG and rest
[2016-12-05] MEDS ORDERED: NOREPINEPHRINE BITARTRATE 16 MG in NS 250 ML IV ONE (11:00)
[2016-12-05] MEDS ORDERED: hydrALAZINE 20 MG/ML VIAL ONE (11:41)
[2016-12-05] MEDS ORDERED: ISOFLURANE 100 ML BOTTLE IH ONE (13:03)
[2016-12-05] MEDS ORDERED: ONDANSETRON 4 MG/2 ML VIAL IVP PRN ×2 (13:04→14:32)
[2016-12-05] MEDS ORDERED: NALOXONE HCL 0.4 MG/ML INJ IVP PRN (13:04)
[2016-12-05] MEDS ORDERED: LR 500 ML IV PRN (13:04)
[2016-12-05] MEDS ORDERED: MAGNESIUM SULF 2 GM/WATER 50 ML BAG IV ONE (13:05)
[2016-12-05] MEDS ORDERED: SUGAMMADEX SODIUM 200 MG/2 ML VIAL IVP ONE (13:15)
[2016-12-05] MEDS ORDERED: PROPOFOL/EMULSION 500 MG/50 ML BOTTLE IV ONE (14:00)
[2016-12-05] MEDS ORDERED: epHEDrine SULFATE 10 MG/ML SYR ONE (14:10)
[2016-12-05] MEDS ORDERED: CEPACOL LOZENGE PO PRN (14:32)
[2016-12-05] MEDS ORDERED: MEPERIDINE 25 MG/ML SYR IVP PRN (14:32)
[2016-12-05] MEDS ORDERED: LACTULOSE 20 GM/30 ML UDCUP PO PRN (14:32)
[2016-12-05] MEDS ORDERED: MAGNESIUM HYDROXIDE 30 ML UDCUP PO PRN (14:32)
[2016-12-05] MEDS ORDERED: D50W 25 GM/50 ML SYR IVP PRN (14:32)
[2016-12-05] MEDS ORDERED: PANTOPRAZOLE SODIUM 40 MG in NS 100 ML IV ONE (14:32)
[2016-12-05] MEDS ORDERED: ACETAMINOPHEN 650 MG SUPP PR PRN (14:32)
[2016-12-05] MEDS ORDERED: POTASSIUM Cl (KCl) 50 ML IV PRN (14:32)
[2016-12-05] MEDS ORDERED: METOCLOPRAMIDE 10 MG/2 ML VIAL IVP PRN (14:32)
[2016-12-05] MEDS ORDERED: ONDANSETRON DISINTEGRATING 4 MG TAB PO PRN (14:32)
[2016-12-05] MEDS ORDERED: POLYETHYLENE GLYCOL 3350 17 GM PKT PO PRN (14:32)
[2016-12-05] MEDS ORDERED: MAGNESIUM SULF 2 GM/WATER 50 ML IV ONE (14:32)
[2016-12-05] MEDS ORDERED: BISACODYL 10 MG SUPP PR PRN (14:32)
[2016-12-05] MEDS ORDERED: ALBUMIN 5% 250 ML BOTTLE IV ONE (14:32)
[2016-12-05] MEDS ORDERED: SODIUM CL NASAL 45 ML BTL EACHNARE PRN (14:32)
[2016-12-05] MEDS ORDERED: IPRATROPIUM/ALBUTEROL 3 ML DEYVIAL IH PRN (14:43)
[2016-12-05] MEDS ORDERED: NS 1,000 ML IV SCH (14:45)
--- NOTE | 2016-12-05 14:51 | POSTANESTH ---
Post Anesthetic Evaluation Cardiovascular Status: Normal, Stable Respiratory Status: Other, See Comment Level of Consciousness/Mental Status: Other, See Comment Pain Control: Adequate, Prn Tx Ordered Nausea/Vomiting Control: Adequate, Prn Tx Ordered Complications Possibly Related to Anesthesia: None Noted (sedated on propofol, stable on ventillator)
[2016-12-05] MEDS ORDERED: INSULIN REGULAR HUMAN 100 UNIT in NS 100 ML IV SCH (15:00)
[2016-12-05] MEDS ORDERED: DEXMEDETOMIDINE HCL 400 MCG in NS 100 ML IV SCH (15:00)
[2016-12-05] MEDS ORDERED: CARBOXYMETHYLCELLULOSE 0.5% 0.4 ML DROPERETTE EACHEYE PRN (15:19)
--- NOTE | 2016-12-05 16:18 | CPEKG ---
Heart Rate: 70 RR Interval: 857 P-R Interval: 176 QRSD Interval: 100 QT Interval: 472 QTC Interval: 510 QRS Ten Sleep: 50 T Wave Ten Sleep: -40 EKG Severity - ABNORMAL ECG - EKG Impression: ATRIAL-PACED RHYTHM EKG Impression: BORDERLINE T ABNORMALITIES, INFERIOR LEADS EKG Impression: PROLONGED QT INTERVAL Electronically Signed By: Chris Guzman 05-Dec-2016 16:48:43
[2016-12-05] MEDS ORDERED: DOPamine/DEXTROSE/250 ML BAG IV ONE (16:37)
[2016-12-05] MEDS: ALBUMIN 5% 250 ML IV PRN ×2 (17:03→18:26)
[2016-12-05 17:12] LABS: BICARBONATE 22 mEq/L (22-26); MEASURED OXYGEN SATURATION 96 % (92-95); PCO2 46 mmHg (34-38); PO2 85 mmHg (65-75); TCO2 23 mEq/L (23-27)
[2016-12-05 17:13] LABS: CPAP YES; END TIDAL CO2 37
[2016-12-05 17:14] LABS: O2 CONCENTRATIION 40 % (0-100); P/F RATIO 213 RATIO; PATIENT RATE 20; PRESSURE SUPPORT 7
--- NOTE | 2016-12-05 18:40 | ECHO ---
[id number] + + [address] : : [facility] [address] : : [phone] + + Adult Echocardiographic Report + -----+ :Name: EARL MACKENZIE LStudy Date: 12/05/2016 06:08 PM BP: 91/45 mmHg : : Hospital Admission Number: [id number] Location : 251: :: 1935 Gender: Male : :Age: 80 yrs Race: WH : :Reason For Study: hypotension s/p CABG : :History: s/p CABG : + -----+ Left Ventricle The left ventricle is normal in size and function. Estimated left ventricular ejection fraction 70-75%. Mild post-op septal motion noted. Basal inferior wall is thin, bright and akinetic consistent with old [place]. No new wall motion abnormalities noted. Pericardium/Pleural There is no pericardial effusion. Conclusion Limited 2D echocardiogram to assess LVFX. The left ventricle is normal in size and function. Estimated left ventricular ejection fraction 70-75%. Mild post-op septal motion noted. Basal inferior wall is thin, bright and akinetic consistent with old [place]. No new wall motion abnormalities noted. A right ventricular echodensity was noted that is likely shadowing. Final Reading Physician: Cindy Perez signed on 12/05/2016 06:39 PM Ordering Physician: Neftaly Woody Performed By: Tamir Hansen MD
[2016-12-05 20:35] LABS: CALCULATED OXYGEN SATURATION 98 % (92-95); O2 CONCENTRATIION 60 % (0-100)
[2016-12-05] MEDS ORDERED: NOREPINEPHRINE/NS 500 ML IV SCH (21:30)
[2016-12-05] MEDS: ceFAZolin 2 GM/DEXTROSE 100 ML IV SCH (22:01)
[2016-12-06] MEDS: fentaNYL 100 MCG/2 ML INJ IVP PRN ×4 (00:32→06:10)
[2016-12-06 04:50] LABS: % IMMATURE GRANULYOCYTES 0.6 % (0.0-1.1); ABSOLUTE IMMATURE GRANULOCYTES 0.12 10^3/uL (0.00-0.10); ADD DIFF? NO; ADD MORPH? NO; ADD SCAN? NO; ATYPICAL LYMPHOCYTE FLAG 0 (0-99); FRAGMENT RBC FLAG 0 (0-99); HEMATOCRIT 32.1 % (40.0-51.0); LEFT SHIFT FLG 70 (0-99); LIPEMIA HEMOLYSIS FLAG 90 (0-99); MEAN CELL HEMOGLOBIN 32.8 pg (27.9-34.1); MEAN CELL HEMOGLOBIN CONCENTR. 34.3 g/dL (32.4-36.7); MEAN CELL VOLUME 95.8 fL (81.5-99.8); MEAN PLATELET VOLUME 10.2 fL (8.7-11.7); PLATELET CLUMPS FLAG 10 (0-99); PLATELET COUNT 98 10^3/uL (150-400); RED BLOOD CELL COUNT 3.35 10^6/uL (4.40-6.38); RED CELL DISTRIBUTION WIDTH 12.8 % (11.5-15.2)
[2016-12-06] MEDS ORDERED: NOREPINEPHRINE BITARTRATE 16 MG in D5W 250 ML IV SCH (05:00)
[2016-12-06 05:11] LABS: ANION GAP 7 mEq/L (8-16); CALCIUM 8.7 mg/dL (8.5-10.4); CARBON DIOXIDE 22 mEq/l (22-31); CHLORIDE 105 mEq/L (97-110); CREATININE 0.8 mg/dL (0.7-1.3); GLOMERULAR FILTRATION RATE > 60; GLUCOSE 97 mg/dL (70-100); POTASSIUM 4.3 mEq/L (3.5-5.2); SODIUM 134 mEq/L (134-144)
[2016-12-06] MEDS: ceFAZolin 2 GM/DEXTROSE 100 ML IV SCH ×3 (05:17→21:51)
--- NOTE | 2016-12-06 07:40 | SOAPPROG ---
SOAP Progress Note Assessment/Plan: Assessment: POD#1 CABG x 3 (HARTMANN-distal LAD, SV-D1, SV-PDA), prophylactic AtriClip ligation left atrial appendage, EVH left thigh. Sx severe CAD/remote IMI/failed PCI - s/p CABG. LAD partially intramuscular and uncovering complicated by RV entry requiring plication. Left intubated for tight control of hemodynamics. No significant chest tube output or evidence bleeding. No tachydysrhythmias. Extubated this am without incident. Secondary prevention with baby ASA, BB as allowed by HR and BP, and statin when eating well. Imdur and Prasugrel discontinued. Ischemic cardiomyopathy - LVEF 40-45% preop. Improved systolic fx post revasc. Hemodynamics optimized w low dose pressor support. Bedside echo neg for pericardial effusion, or LVSD. Probable postCPB vasoplegia. Dopa wean in progress. Staggered intro of heart failure meds as appropriate. Presence of ICD - Remote hx of VT. Nl pacer fx by postop interrogation. DDDR mode. Lower rate 70. Currently Apaced 70. Acute expected blood loss anemia - Stable. No blood products transfused. Care with VTE prophylaxis while plt count depressed. COPD - Stable. Chronic MDIs to resume. Adjunctive mucolytic prn. MIGEL on CPAP - Stable. Home device in room. Plan: Wean dopa to MAP > 70. Consider levo wean later today. Colloid prn CVP < 8. Lasix prn CVP > 15. Keep reese and acosta until off pressor support. Blakes to bulb suction. Wrap and cap TCPWs. NPO until COPPER PLATER clearance for orals. 12/06/16 07:35 Subjective: Sitting in a chair moaning. Endorses incisional discomfort. Able to focus and answer questions appropriately when engaged. Objective: Vital Signs Temp Pulse Resp BP Pulse Ox 37.5 C 70 23 H 108/43 L 96 12/06/16 07:00 12/06/16 07:00 12/06/16 07:00 12/06/16 07:00 12/06/16 07:00 Laboratory Results 12/06/16 04:45 12/06/16 04:45 12/05/16 12/06/16 12/07/16 05:59 05:59 05:59 Intake Total 2390.8 Output Total 2525 330 Balance -134.2 -330 Extubated without incident last noc. 4 lpm suppl O2 req. Some confusion/ agitation steadily clearing per nursing. Apaced 70. MAPs 68-75 on Dopa 5 and levo 2. Dopa down to 2 as of this am. CXR -> mild pulm vasc congestion, basilar atelectasis. CTOP thinning. Quantity steadily dissipating. Balanced I/Os. Stable renal fx. Other labs as expected. Physical Exam - Physical Exam General Appearance: mild distress, other (awake, oriented to person and place, speech clear, facies symmetric, MAEE) Respiratory: lungs clear (grossly), other (Blakes x 2 y-d to pleurovac, serosang drainage, no air leak) Cardiac/Chest: regular rate, rhythm (paced), other (Sternotomy CDI. A&V wires intact.) Abdomen: non-tender, soft Skin: warm/dry Extremities: swelling (1+ gen), other (LLE wrap intact) ICD10 Worksheet Patient Problems: Problems Problem Status Onset Acute blood loss anemia Acute S/P CABG x 3 Acute ~12/05/16 Chest pain Acute Chest pain Acute Coronary artery disease Acute GERD (gastroesophageal reflux disease) Acute Pacemaker Acute Stented coronary artery Acute
[2016-12-06] MEDS ORDERED: ALBUTEROL 200 PUFFS/18 GM MDI IH PRN (08:00)
[2016-12-06] MEDS ORDERED: HYDROcodone/CPM TUSSIONEX 5 ML UDSYR PO PRN (09:00)
[2016-12-06] MEDS ORDERED: NON-FORMULARY NEW DRUG (Citalopram Hydrobromide [Citalopram Hbr] 40 MG) PO SCH (09:00)
[2016-12-06] MEDS ORDERED: NON-FORMULARY NEW DRUG (Propylene Glycol/Peg 400 [Systane 0.3-0.4% Eye Drops] 1 DROP) EACHEYE PRN (09:00)
[2016-12-06] MEDS ORDERED: IPRATROPIUM 0.06% NASAL SPRAY EACHNARE PRN (09:00)
[2016-12-06] MEDS ORDERED: ASPIRIN 81 MG CHEWABLE TAB TUBE PRN (09:00)
[2016-12-06] MEDS ORDERED: BUDESONIDE/FORMOTEROL 160/4.5 60 PUFFS/MDI IH SCH (09:00)
[2016-12-06] MEDS: CITALOPRAM 20 MG TAB PO SCH (09:22)
[2016-12-06] MEDS: ALBUMIN 5% 250 ML IV PRN ×2 (09:36→12:01)
[2016-12-06] MEDS ORDERED: KETOROLAC 30 MG/1 ML SDV IVP ONE (10:45)
[2016-12-06] MEDS: ASPIRIN 81 MG CHEWABLE TAB PO SCH (11:06)
[2016-12-06] MEDS: PANTOPRAZOLE SODIUM 40 MG TAB PO SCH (11:06)
[2016-12-06] MEDS: MUPIROCIN 2% 22 GM OINT NS SCH ×2 (11:11→20:16)
[2016-12-06 11:41] LABS: POTASSIUM 4.7 mEq/L (3.5-5.2)
--- NOTE | 2016-12-06 13:00 | GCON ---
[f rep st] CONSULTATION PULMONARY CRITICAL CARE CONSULT. DATE OF CONSULTATION: 12/06/2016 HISTORY OF PRESENT ILLNESS: The patient is a 80-year-old male with a history of coronary artery dis ease that required a stent in the past, however, this was apparently failing, and he underwent coron zita artery bypass grafting yesterday by Dr. Woody. He was a little slow to come off the ventilator, but was eventually extubated last night, at around 10:30, and has done well from a respiratory pers pective. He has had some significant pain issues and is moaning quite frequently, although, this maced[place] s been diminished more so recently with Toradol. In any case, hemodynamically he has been doing chris rly well. He is still on pressors overnight, but these are being weaned off quite rapidly. There w as no excessive blood loss and no obvious intraoperative complications. REVIEW OF SYSTEMS: Otherwise negative. PAST MEDICAL HISTORY: 1. Coronary artery disease. 2. Asthma, followed by Dr. Muse, which is thought to be mild persistent asthma, using Symbicort 80 and p.r.n. Ventolin. 3. Obstructive sleep apnea. He is on a variable positive airway pressure device at 05/03, but does not have his device with him now. 4. Hyperlipidemia. 5. Hypertension. 6. Gastroesophageal reflux disease. 7. Irritable bowel syndrome. 8. Benign prostatic hypertrophy. 9. Depression. 10. Permanent, I believe defibrillator, for remote history of VT. 11. Peripheral neuropathy. 12. Polymyalgia rheumatica. 13. Remote subdural hematoma. 14. Vasovagal syncope in the past. PAST SURGICAL HISTORY: Includes the recent CABG, as well as previous stent, and a corneal transplan t. SOCIAL HISTORY: He has a remote smoking history, but none now. No significant alcohol or IV drug u se. FAMILY HISTORY: Includes coronary artery disease. MEDICATIONS: At this time include Ventolin, DuoNeb, aspirin, Lipitor, Dulcolax, Symbicort 160, Ance f, Tussionex, vitamin D, dopamine, insulin, Atrovent nasal spray, milk of magnesia, Levophed, Zofran , Protonix, MiraLAX, Senokot, vitamin B12. PHYSICAL EXAM: VITAL SIGNS: He was afebrile, with a T-max of 38.1, heart rate is 70, respirations 20, blood pressure 118/48, oxygen saturation 94% on 1 L. GENERAL: He was mildly confused and moani ng on nearly every breath, even when I asked him to try to refrain, but he did answer some questions quite appropriately, and did not appear to be in obvious respiratory distress. HEENT: His pupils are equally round, reactive to light. Nonicteric and noninjected. Mucous membranes are moist witho ut erythema or exudate. NECK: Supple without adenopathy or jugular vein distention. His incision looked clean and dry without evidence of infection. Breath sounds were clear to auscultation, thoug h diminished bilaterally without obvious wheezing, although, the exam was suboptimal. HEART: Appea red to have a regular rate and rhythm without obvious murmurs. ABDOMEN: Soft, nontender, nondisten ded with hypoactive bowel tones. EXTREMITIES: No clubbing, cyanosis, or edema. NEUROLOGICAL: Non focal, other than the mild confusion, and cranial nerves appeared to be well intact. OBJECTIVE DATA: Includes a white count of 21, hematocrit 32, platelets of 98. Basic metabolic pane l looks unremarkable. Chest x-ray done this morning, shows low lung volumes, and atelectasis. ASSESSMENT AND PLAN: 1. Coronary artery disease, status post CABG, with left atrial appendage ligation. He appears to b e relatively stable from this perspective, and is rapidly losing the requirement for pressor support . 2. Asthma. His Symbicort dose is actually the higher of his outpatient dose, I will reduce that no w, and continue his p.r.n. nebulizers. 3. Obstructive sleep apnea. He is relatively stable at this time. I am not going to be able to pr ovide VPAP while an inpatient, but we could certainly use q.h.s. BiPAP at a lower setting in the jed rt term. This may help with his atelectasis. 4. Hypoxemia. Again, this is related to surgery, as well as underlying lung diseases, BiPAP may he lp, I also encouraged incentive spirometry, sitting up out of bed as he was during the time of my ex am, as well as early ambulation as best he can tolerate. /[id number]/MODL
[2016-12-06] MEDS: BUDESONIDE/FORMOTEROL 80/4.5 60 PUFFS/MDI IH SCH ×2 (13:05→20:58)
[2016-12-06 15:47] LABS: POTASSIUM 4.5 mEq/L (3.5-5.2)
[2016-12-06] MEDS ORDERED: NS 1,000 ML IV SCH (16:00)
[2016-12-06 16:06] LABS: CALCULATED OXYGEN SATURATION 95 % (92-95); O2 CONCENTRATIION 40 % (0-100)
[2016-12-06] MEDS: KETOROLAC 30 MG/1 ML SDV IVP SCH (20:00)
[2016-12-06] MEDS: SENNOSIDES/DOCUSATE SODIUM TAB PO SCH (20:16)
[2016-12-07] MEDS: KETOROLAC 30 MG/1 ML SDV IVP SCH ×2 (01:59→08:19)
[2016-12-07 05:15] LABS: % IMMATURE GRANULYOCYTES 0.9 % (0.0-1.1); ABSOLUTE IMMATURE GRANULOCYTES 0.16 10^3/uL (0.00-0.10); ADD DIFF? NO; ADD MORPH? NO; ADD SCAN? NO; ATYPICAL LYMPHOCYTE FLAG 0 (0-99); FRAGMENT RBC FLAG 0 (0-99); HEMOGLOBIN 9.1 g/dL (13.7-17.5); LEFT SHIFT FLG 50 (0-99); LIPEMIA HEMOLYSIS FLAG 80 (0-99); MEAN CELL HEMOGLOBIN 32.9 pg (27.9-34.1); MEAN CELL HEMOGLOBIN CONCENTR. 33.7 g/dL (32.4-36.7); MEAN CELL VOLUME 97.5 fL (81.5-99.8); MEAN PLATELET VOLUME 11.5 fL (8.7-11.7); PLATELET CLUMPS FLAG 0 (0-99); PLATELET COUNT 80 10^3/uL (150-400); RED BLOOD CELL COUNT 2.77 10^6/uL (4.40-6.38); RED CELL DISTRIBUTION WIDTH 13.5 % (11.5-15.2)
[2016-12-07 05:35] LABS: ANION GAP 6 mEq/L (8-16); CALCIUM 8.4 mg/dL (8.5-10.4); CARBON DIOXIDE 23 mEq/l (22-31); CHLORIDE 107 mEq/L (97-110); CREATININE 1.1 mg/dL (0.7-1.3); GLOMERULAR FILTRATION RATE > 60; GLUCOSE 114 mg/dL (70-100); POTASSIUM 4.5 mEq/L (3.5-5.2); SODIUM 136 mEq/L (134-144)
[2016-12-07] MEDS: ceFAZolin 2 GM/DEXTROSE 100 ML IV SCH (06:36)
--- NOTE | 2016-12-07 08:22 | SOAPPROG ---
SOAP Progress Note Assessment/Plan: Assessment: POD#2 CABG x 3 (HARTMANN-distal LAD, SV-D1, SV-PDA), prophylactic AtriClip ligation left atrial appendage, EVH left thigh. Sx severe CAD/remote IMI/failed PCI - s/p CABG. LAD partially intramuscular and uncovering complicated by RV entry requiring plication. Left intubated longer than usual for tight control of hemodynamics. No significant chest tube output or evidence bleeding. No sustained tachycardia. Secondary prevention with baby ASA, BB as allowed by HR and BP, and statin when eating well. Imdur and Prasugrel discontinued. Ischemic cardiomyopathy - LVEF 40-45% preop. Improved systolic fx post revasc. Hemodynamics optimized w low dose pressor support. Bedside echo neg for pericardial effusion, or LVSD. Probable postCPB vasoplegia - appears to have resolved. Staggered intro of heart failure meds as appropriate. Postop delirium - Multifactorial. Exacerbated by narcs, suboptimal pain control , and probable drug withdrawal - SSRI +/- ETOH. No evidence hypoxia, infection, or overt metabolic derangement. Supportive care for now: IVF, avoidance narcs, NSAID as allowed by renal fx, anxiolytic hs, reorientation etc. Presence of ICD - Remote hx of VT. Nl pacer fx by postop interrogation. DDDR mode. Lower rate 70. Mostly Apaced 70. Acute expected blood loss anemia - Stable. No blood products transfused. Care with VTE prophylaxis while plt count depressed. RAD/COPD - Stable. Extubated without incident. Chronic MDIs to resume. Adjunctive mucolytic prn. MIGEL on CPAP - Stable. Home device in room. Plan: Vwires and mediastinal juma removed. Inc IVF to 125ml/h while NPO. Ck BMP at 4pm. Strict NPO until ENVIRONMENTAL RESEARCH SCIENTIST clearance for orals. Cont Toradol as primary analgesic. Add Lorazepam hs. Inc mobility as tolerated. 12/07/16 08:22 Subjective: Somewhat confused. Oriented to person and place. Answers some questions intelligibly. Does appear to recognize Dr Woody. REESE. Endorses daily beer consumption. Objective: Vital Signs Temp Pulse Resp BP Pulse Ox 36.8 C 70 23 H 137/56 H 97 12/06/16 19:17 12/07/16 07:00 12/07/16 07:00 12/07/16 07:00 12/07/16 07:00 Laboratory Results 12/07/16 04:45 12/07/16 04:45 12/06/16 12/07/16 12/08/16 05:59 05:59 05:59 Intake Total 2390.8 1996 Output Total 2525 1635 Balance -134.2 362 Fluctuating confusion and restlessness. Narcs avoided and started on Toradol. Unable to participate in swallow study and kept NPO. Maintenance IVF started at 75 ml/h. Off pressor support by mid-day yest. Holding MAPs > 65. [place] out. Mostly Apaced 70. PPM re-interrogated for occ rapid Vpacing and nl fx verified. Suppl O2 req down to 2lpm. CXR -> improved lung volumes, min pulm vasc congestion, left basilar atelectasis. CTOP approaching removal criteria. Dwindling UOP with sl inc BUN/Cr. Other labs as expected. WBC down from 21. Afebrile. Physical Exam - Physical Exam General Appearance: mild distress (repetitive moaning, only quieting when engaged. ) Respiratory: lungs clear (grossly), other (Blakes x 2 to bulb suction, thin serosang drainage. Mediastinal drain removed without incident) Cardiac/Chest: regular rate, rhythm (paced), other (Sternum grossly stable. Sternotomy and LLE venotomy CDI. Anterior Vwire removed without difficulty. Diaphragmatic Vwire (stitched in place) clipped at skin. ) Abdomen: normal bowel sounds, soft Skin: warm/dry Extremities: swelling (1+ gen) ICD10 Worksheet Patient Problems: Problems Problem Status Onset Acute blood loss anemia Acute S/P CABG x 3 Acute ~12/05/16 Chest pain Acute Chest pain Acute Coronary artery disease Acute GERD (gastroesophageal reflux disease) Acute Pacemaker Acute Stented coronary artery Acute
[2016-12-07] MEDS: BUDESONIDE/FORMOTEROL 80/4.5 60 PUFFS/MDI IH SCH ×2 (08:57→20:24)
--- NOTE | 2016-12-07 09:22 | PDINTPN ---
Hand Drawer In Progress Note Assessment/Plan: Assessment/plan: 80 M with CAD s/p CABG with slow weaning from vent, but extubated late 12/05/16 and advancing from hemodynamic perspective well. His course has been complicated by mild delerium- he moans with nearly every breath, but said his breathing and pain control have been fine. He has a history of asthma and MIGEL which have been stable, though his device (VPAP) is not currently available. * CAD s/p CABG. Clinically stable off pressors. Toradol seems helpful * Hypoxemia- likely from atelectasis and minimal o2 requirement (none at baseline). Continue IS, OOB, ambulate when able * Asthma- controlled on current regimen of Symbicort, prn albuterol and duoneb * MIGEL- he has bipap ordered qhs , but only tolerated it for a few hours. He has VPAP at home, so will try to reduce IPAP from 12 to 10 now. Objective: Vital Signs Temp Pulse Resp BP Pulse Ox 36.8 C 70 24 H 138/52 H 95 12/06/16 19:17 12/07/16 09:00 12/07/16 09:00 12/07/16 09:00 12/07/16 09:00 Laboratory Results 12/07/16 04:45 12/07/16 04:45 12/06/16 12/07/16 12/08/16 05:59 05:59 05:59 Intake Total 2390.8 1997 Output Total 2525 1635 Balance -134.2 362 Physical Exam - Physical Exam General Appearance: alert, no apparent distress, mild distress (moaning with each exhalation), obese EENT: PERRL/EOMI Neck: supple Respiratory: lungs clear, decreased breath sounds, No respiratory distress, No accessory muscle use, No wheezing, No prolonged expiration Cardiac/Chest: regular rate, rhythm, No edema Abdomen: non-tender, soft, No distended Skin: normal color, warm/dry Lymphatic: no adenopathy Extremities: No pedal edema Neuro/Psych: alert, normal mood/affect, cognition abnormalities ICD10 Worksheet Patient Problems: Problems Problem Status Onset Acute blood loss anemia Acute S/P CABG x 3 Acute ~12/05/16 Chest pain Acute Chest pain Acute Coronary artery disease Acute GERD (gastroesophageal reflux disease) Acute Pacemaker Acute Stented coronary artery Acute
[2016-12-07] MEDS: ASPIRIN 81 MG CHEWABLE TAB PO SCH (09:36)
[2016-12-07] MEDS: CITALOPRAM 20 MG TAB PO SCH (09:37)
[2016-12-07] MEDS: CHOLECALCIFEROL VIT D3 1,000 UNITS TAB PO SCH (09:37)
[2016-12-07] MEDS: SENNOSIDES/DOCUSATE SODIUM TAB PO SCH ×2 (09:37→21:21)
[2016-12-07] MEDS: CYANO/VITAMIN B12 1000 MCG TAB PO SCH (09:37)
[2016-12-07] MEDS: MULTIVITAMINS 1 EACH TAB PO SCH (09:37)
[2016-12-07] MEDS: PANTOPRAZOLE SODIUM 40 MG in NS 100 ML IV SCH (09:40)
[2016-12-07] MEDS: KETOROLAC 15 MG/1 ML SDV IVP SCH ×3 (12:05→23:47)
[2016-12-07 15:50] LABS: ANION GAP 6 mEq/L (8-16); CALCIUM 8.5 mg/dL (8.5-10.4); CARBON DIOXIDE 23 mEq/l (22-31); CHLORIDE 108 mEq/L (97-110); GLOMERULAR FILTRATION RATE > 60; GLUCOSE 114 mg/dL (70-100); POTASSIUM 4.2 mEq/L (3.5-5.2); SODIUM 137 mEq/L (134-144)
[2016-12-07] MEDS: NS 1,000 ML IV SCH (20:51)
[2016-12-07] MEDS ORDERED: LORazepam 2 MG/ML INJ IVP SCH (21:00)
[2016-12-08 04:33] LABS: % IMMATURE GRANULYOCYTES 0.9 % (0.0-1.1); ABSOLUTE IMMATURE GRANULOCYTES 0.11 10^3/uL (0.00-0.10); ADD DIFF? NO; ADD MORPH? NO; ADD SCAN? NO; ATYPICAL LYMPHOCYTE FLAG 0 (0-99); FRAGMENT RBC FLAG 0 (0-99); HEMATOCRIT 26.6 % (40.0-51.0); HEMOGLOBIN 8.9 g/dL (13.7-17.5); LEFT SHIFT FLG 20 (0-99); LIPEMIA HEMOLYSIS FLAG 80 (0-99); MEAN CELL HEMOGLOBIN 32.7 pg (27.9-34.1); MEAN CELL HEMOGLOBIN CONCENTR. 33.5 g/dL (32.4-36.7); MEAN CELL VOLUME 97.8 fL (81.5-99.8); MEAN PLATELET VOLUME 11.7 fL (8.7-11.7); PLATELET CLUMPS FLAG 0 (0-99); PLATELET COUNT 76 10^3/uL (150-400); RED BLOOD CELL COUNT 2.72 10^6/uL (4.40-6.38); RED CELL DISTRIBUTION WIDTH 13.4 % (11.5-15.2)
[2016-12-08 04:48] LABS: ANION GAP 6 mEq/L (8-16); CALCIUM 8.3 mg/dL (8.5-10.4); CARBON DIOXIDE 22 mEq/l (22-31); CHLORIDE 112 mEq/L (97-110); CREATININE 0.8 mg/dL (0.7-1.3); GLOMERULAR FILTRATION RATE > 60; GLUCOSE 109 mg/dL (70-100); POTASSIUM 3.9 mEq/L (3.5-5.2); SODIUM 140 mEq/L (134-144)
[2016-12-08] MEDS: KETOROLAC 15 MG/1 ML SDV IVP SCH ×4 (05:57→23:44)
--- NOTE | 2016-12-08 07:18 | SOAPPROG ---
SOAP Progress Note Assessment/Plan: POD#3 CABG x 3 (HARTMANN-distal LAD, SV-D1, SV-PDA), prophylactic AtriClip ligation left atrial appendage, EVH left thigh. Sx severe CAD/remote IMI/failed PCI - s/p CABG. LAD partially intramuscular and uncovering complicated by RV entry requiring plication. Left intubated longer than usual for tight control of hemodynamics. No significant chest tube output or evidence bleeding. No sustained tachycardia. Secondary prevention with baby ASA, BB as allowed by HR and BP, and statin when eating well. Imdur and Prasugrel discontinued. Ischemic cardiomyopathy - LVEF 40-45% preop. Improved systolic fx post revasc. Hemodynamics optimized w low dose pressor support. Bedside echo neg for pericardial effusion, or LVSD. Staggered intro of heart failure meds as appropriate. Postop delirium - Multifactorial. Exacerbated by narcs, suboptimal pain control , and probable drug withdrawal - SSRI +/- ETOH. No evidence hypoxia, infection, or overt metabolic derangement. Supportive care for now: IVF, avoidance narcs, NSAID as allowed by renal fx, anxiolytic hs, reorientation etc. Presence of ICD - Remote hx of VT. Nl pacer fx by postop interrogation. DDDR mode. Lower rate 70. Mostly Apaced 70. Acute expected blood loss anemia - Stable. No blood products transfused. Care with VTE prophylaxis while plt count depressed. Precautionary HIT sent. RAD/COPD - Stable. Extubated without incident. Chronic MDIs to resume. Adjunctive mucolytic prn. MIGEL on CPAP - Stable. Home device in room. Subjective: Denies pain. Aware of location. Follows commands. Objective: Vital Signs Temp Pulse Resp BP Pulse Ox 36.9 C 70 18 155/56 H 97 12/08/16 00:00 12/08/16 06:00 12/08/16 06:00 12/08/16 06:00 12/08/16 06:00 Laboratory Results 12/08/16 04:10 12/08/16 04:10 12/07/16 12/08/16 12/09/16 05:59 05:59 05:59 Intake Total 1996 2490 Output Total 1635 1390 80 Balance 362 1101 -80 Physical Exam - Physical Exam General Appearance: no apparent distress EENT: No scleral icterus (R), No scleral icterus (L) Neck: normal inspection Respiratory: lungs clear, normal breath sounds, No respiratory distress Cardiac/Chest: other (AP) Abdomen: non-tender, soft, No distended Skin: normal color, warm/dry Extremities: No pedal edema Neuro/Psych: cognition abnormalities, speech abnormalities ICD10 Worksheet Patient Problems: Problems Problem Status Onset Acute blood loss anemia Acute S/P CABG x 3 Acute ~12/05/16 Chest pain Acute Chest pain Acute Coronary artery disease Acute GERD (gastroesophageal reflux disease) Acute Pacemaker Acute Stented coronary artery Acute
[2016-12-08] MEDS: PANTOPRAZOLE SODIUM 40 MG in NS 100 ML IV SCH (09:30)
[2016-12-08] MEDS: CITALOPRAM 20 MG TAB PO SCH (09:30)
[2016-12-08] MEDS: CYANO/VITAMIN B12 1000 MCG TAB PO SCH (09:30)
[2016-12-08] MEDS: ASPIRIN 81 MG CHEWABLE TAB PO SCH (09:30)
[2016-12-08] MEDS: CHOLECALCIFEROL VIT D3 1,000 UNITS TAB PO SCH (09:30)
[2016-12-08] MEDS: MULTIVITAMINS 1 EACH TAB PO SCH (09:30)
[2016-12-08] MEDS: BUDESONIDE/FORMOTEROL 80/4.5 60 PUFFS/MDI IH SCH ×2 (09:37→20:55)
--- NOTE | 2016-12-08 09:52 | PDINTPN ---
Snaker Progress Note Assessment/Plan: Assessment: 80 M with CAD s/p CABG with slow weaning from vent, but extubated late 12/05/16 and advancing from hemodynamic perspective well. His course has been complicated by mild delerium- he moans with nearly every breath, but said his breathing and pain control have been fine. He has a history of asthma and MIGEL which have been stable, though his device (VPAP) is not currently available. * CAD s/p CABG. Clinically stable off pressors. Toradol seems helpful * Hypoxemia- likely from atelectasis and minimal o2 requirement (none at baseline). Continue IS, OOB, ambulate when able * Asthma- controlled on current regimen of Symbicort, prn albuterol and duoneb * MIGEL- he has bipap ordered qhs , but only tolerated it for a few hours. Used BiPAP last night with sleep. * Delerium: Likely due to ICU/poor sleep, narcotics/benzos * Urinary retention: Getting straight cathed. * Nutrition: NPO, hasn't passed swallow eval. Plan:PT/OT. ST for swallow eval. Continue to straight cath PRN. Stop Ativan. Follow CXR 12/08/16 10:01 Subjective: Lethargic and confused. Zhen pain, hunger. Objective: Vital Signs Temp Pulse Resp BP Pulse Ox 36.9 C 70 18 155/56 H 97 12/08/16 00:00 12/08/16 06:00 12/08/16 06:00 12/08/16 06:00 12/08/16 06:00 Laboratory Results 12/08/16 04:10 12/08/16 04:10 12/07/16 12/08/16 12/09/16 05:59 05:59 05:59 Intake Total 1996 2491 Output Total 1635 1390 80 Balance 362 1101 -80 Mild bibasilar densities, ? edema vs atelectasis. Probable small right effusion. Images reviewed. Physical Exam - Physical Exam General Appearance: alert, no apparent distress EENT: normal ENT inspection Neck: normal inspection Respiratory: lungs clear, normal breath sounds Cardiac/Chest: regular rate, rhythm, No edema Abdomen: normal bowel sounds, non-tender, soft Skin: normal color, warm/dry Extremities: normal inspection Neuro/Psych: No alert (sleepy but arousable), No normal mood/affect, No oriented x 3 ICD10 Worksheet Patient Problems: Problems Problem Status Onset Acute blood loss anemia Acute S/P CABG x 3 Acute ~12/05/16 Chest pain Acute Chest pain Acute Coronary artery disease Acute GERD (gastroesophageal reflux disease) Acute Pacemaker Acute Stented coronary artery Acute
[2016-12-08] MEDS: SENNOSIDES/DOCUSATE SODIUM TAB PO SCH ×2 (12:48→20:07)
[2016-12-08] MEDS: ATORVASTATIN CALCIUM 40 MG TAB PO SCH (18:21)
[2016-12-08] MEDS: ACETAMINOPHEN 325 MG TAB PO PRN (20:07)
[2016-12-09] MEDS: NS 1,000 ML IV SCH (00:50)
[2016-12-09] MEDS: ACETAMINOPHEN 325 MG TAB PO PRN (02:45)
[2016-12-09 04:41] LABS: HEMATOCRIT 27.3 % (40.0-51.0); MEAN CELL HEMOGLOBIN 32.5 pg (27.9-34.1); MEAN CELL VOLUME 98.6 fL (81.5-99.8); RED BLOOD CELL COUNT 2.77 10^6/uL (4.40-6.38); RED CELL DISTRIBUTION WIDTH 13.2 % (11.5-15.2)
[2016-12-09] MEDS: KETOROLAC 15 MG/1 ML SDV IVP SCH (06:43)
--- NOTE | 2016-12-09 07:37 | SOAPPROG ---
SOAP Progress Note Assessment/Plan: Assessment: POD#4 CABG x 3 (HARTMANN-distal LAD, SV-D1, SV-PDA), prophylactic AtriClip ligation left atrial appendage, EVH left thigh. Sx severe CAD/remote IMI/failed PCI - s/p CABG. LAD partially intramuscular and uncovering complicated by RV entry requiring plication. Left intubated longer than usual for tight control of hemodynamics. No significant chest tube output or evidence bleeding. No sustained tachycardia. Mediastinal drain and Vwire out. Secondary prevention with baby ASA, BB as allowed by HR and BP, and statin when eating well. Imdur and Prasugrel discontinued. Ischemic cardiomyopathy - LVEF 40-45% preop. Improved systolic fx post revasc. Hemodynamics optimized w low dose pressor support. Bedside echo neg for pericardial effusion, or LVSD. Probable postCPB vasoplegia - appears to have resolved. Staggered intro of heart failure meds as appropriate. Postop delirium - Multifactorial. Exacerbated by narcs, suboptimal pain control , and probable drug withdrawal - SSRI +/- ETOH. No evidence hypoxia, infection, or overt metabolic derangement. Appears to be resolving w supportive care. Postop urinary retention - Elevated PVRs req intermittent straight cath. Follow. Presence of ICD - Remote hx of VT. Nl pacer fx by postop interrogation. DDDR mode. Lower rate 70. Mostly Apaced 70. Acute expected blood loss anemia - Stable. No blood products transfused. Plt count appears to be rebounding. Precautionary HIT pending. Resume VTE prophylaxis w SQ hep if HIT Ab neg. RAD/COPD - Stable. Extubated without incident. Chronic MDIs to resume. Adjunctive mucolytic prn. MIGEL on CPAP - Stable. Home device not yet in use. Plan: Stop IVF. Begin daily IV diuresis. Begin low dose metoprolol. Advancement of diet per [employer]. Keep pleural juma at least one more day. Switch scheduled Toradol to prn ibuprofen. Cont NSAID as primary analgesic. Relax bowel regimen. Cont aggressive pulm toilet. Inc mobility as tolerated. Possible tx to PCU later today. 12/09/16 07:31 Subjective: Sitting in a chair eating breakfast. Oriented to person and time "it's my birthday" but believes he's at [facility]. Denies pain. Lg BM. Objective: Vital Signs Temp Pulse Resp BP Pulse Ox 36.8 C 72 22 H 132/61 H 97 12/09/16 07:12 12/09/16 07:12 12/09/16 07:12 12/09/16 07:12 12/09/16 07:12 Laboratory Results 12/09/16 04:20 12/08/16 04:10 12/08/16 12/09/16 12/10/16 05:59 05:59 05:59 Intake Total 2491 3817 Output Total 1390 2055 Balance 1101 1762 Improving mentation. No longer moaning. +dysphagia diet. Did pull out TLC last noc. Stable hemodynamics and suppl O2 req. Grossly positive fluid balance. Elevated serous pleural tube output c/w fluid overload. WBC cont to normalize. Plt count appears to be rebounding. Physical Exam - Physical Exam General Appearance: alert, no apparent distress Respiratory: crackles (bilat bases), other (juma to bulb suction, thin mostly serous drainage) Cardiac/Chest: regular rate, rhythm, other (Sternum grossly stable. Sternotomy and LLE venotomy CDI.) Abdomen: non-tender, soft Skin: warm/dry Extremities: swelling (1+ dependent) ICD10 Worksheet Patient Problems: Problems Problem Status Onset Acute blood loss anemia Acute S/P CABG x 3 Acute ~12/05/16 Chest pain Acute Chest pain Acute Coronary artery disease Acute GERD (gastroesophageal reflux disease) Acute Pacemaker Acute Stented coronary artery Acute
[2016-12-09] MEDS ORDERED: POTASSIUM CL 20 MEQ TAB PO ONE (08:01)
[2016-12-09] MEDS ORDERED: FUROSEMIDE 40 MG/4 ML VIAL IVP ONE (08:01)
[2016-12-09] MEDS ORDERED: SENNOSIDES/DOCUSATE SODIUM TAB PO PRN (09:00)
[2016-12-09] MEDS: CYANO/VITAMIN B12 1000 MCG TAB PO SCH (09:01)
[2016-12-09] MEDS: ASPIRIN 81 MG CHEWABLE TAB PO SCH (09:01)
[2016-12-09] MEDS: CHOLECALCIFEROL VIT D3 1,000 UNITS TAB PO SCH (09:01)
[2016-12-09] MEDS: CITALOPRAM 20 MG TAB PO SCH (09:01)
[2016-12-09] MEDS: MULTIVITAMINS 1 EACH TAB PO SCH (09:07)
[2016-12-09] MEDS: PANTOPRAZOLE SODIUM 40 MG TAB PO SCH (09:07)
[2016-12-09] MEDS: BUDESONIDE/FORMOTEROL 80/4.5 60 PUFFS/MDI IH SCH ×2 (09:18→20:42)
[2016-12-09] MEDS ORDERED: traMADol 50 MG TAB PO PRN (10:00)
[2016-12-09] MEDS ORDERED: METOPROLOL TARTRATE 5 MG/5 ML INJ IVP ONE (11:03)
[2016-12-09] MEDS ORDERED: FUROSEMIDE 40 MG/4 ML VIAL IVP SCH (15:00)
[2016-12-09] MEDS: POTASSIUM CL 20 MEQ TAB PO SCH ×2 (16:21→20:15)
[2016-12-09] MEDS: ATORVASTATIN CALCIUM 40 MG TAB PO SCH (16:22)
[2016-12-09] MEDS ORDERED: AMIODARONE TACHY-LOAD DOSE(ORDER 1/3) IV ONE ×2 (18:00→18:30)
[2016-12-09] MEDS ORDERED: AMIODARONE TACHY-6HR INFSN (ORDER 2/3) IV ONE (18:00)
[2016-12-09 18:32] LABS: HEPARIN INDUCED ANTIBODY Negative (Negative); HEPARIN-PF4 IgG ANTIBODY ELISA < 0.075 OD (<0.400)
[2016-12-09 18:58] LABS: POTASSIUM 3.6 mEq/L (3.5-5.2)
[2016-12-09] MEDS: IBUPROFEN 600 MG TAB PO PRN (20:15)
[2016-12-09] MEDS: METOPROLOL TARTRATE 25 MG TAB PO SCH (20:15)
[2016-12-10] MEDS ORDERED: AMIODARONE TACHY-18HR INFSN (ORDER 3/3) IV ONE (01:00)
[2016-12-10 05:34] LABS: ANION GAP 5 mEq/L (8-16); CALCIUM 8.5 mg/dL (8.5-10.4); CARBON DIOXIDE 24 mEq/l (22-31); CHLORIDE 112 mEq/L (97-110); CREATININE 0.7 mg/dL (0.7-1.3); GLOMERULAR FILTRATION RATE > 60; GLUCOSE 102 mg/dL (70-100); POTASSIUM 3.4 mEq/L (3.5-5.2); SODIUM 141 mEq/L (134-144)
[2016-12-10] MEDS ORDERED: POTASSIUM CL 20 MEQ TAB PO ONE ×2 (07:08→13:56)
--- NOTE | 2016-12-10 07:15 | SOAPPROG ---
SOAP Progress Note Assessment/Plan: POD#5 CABG x 3 (HARTMANN-distal LAD, SV-D1, SV-PDA), prophylactic AtriClip ligation left atrial appendage, EVH left thigh. Sx severe CAD/remote IMI/failed PCI - s/p CABG. Secondary prevention with baby ASA, BB, and statin. Imdur and Prasugrel discontinued. Ischemic cardiomyopathy - LVEF 40-45% preop. Improved systolic fx post revasc. Hemodynamics optimized w low dose pressor support. Bedside echo neg for pericardial effusion, or LVSD. Staggered intro of heart failure meds as appropriate. Postop delirium - Improving. Exacerbated by narcs, suboptimal pain control, and possible drug withdrawal. Supportive care for now. Presence of ICD - Remote hx of VT. Nl pacer fx by postop interrogation. DDDR mode. Lower rate 70. Mostly Apaced 70. Acute expected blood loss anemia - Stable. No blood products transfused. Care with VTE prophylaxis while plt count depressed. Precautionary HIT sent. RAD/COPD - Stable. Extubated without incident. Chronic MDIs to resume. Adjunctive mucolytic prn. MIGEL on CPAP - Stable. Home device in room. Paroxysmal AF - Conversion to paced SR with amiodarone/metoprolol. Thromboprophylaxis deferred d/t JARED ligation as well as short duration of arrhythmia. Subjective: c/o minor back pain. Would like to know when he's going home. Was independent prior to surgery and understands he'll likely be transferred to a nursing facility. Objective: Vital Signs Temp Pulse Resp BP Pulse Ox 36.8 C 71 22 H 101/46 L 94 12/10/16 04:00 12/10/16 04:00 12/10/16 04:00 12/10/16 04:00 12/10/16 04:00 Laboratory Results 12/09/16 04:20 12/10/16 05:10 12/09/16 12/10/16 12/11/16 05:59 05:59 05:59 Intake Total 6534 2990 Output Total 4034 6041 Balance 1762 -749 Physical Exam - Physical Exam General Appearance: no apparent distress, mild distress EENT: No scleral icterus (R), No scleral icterus (L) Neck: normal inspection Respiratory: No respiratory distress Cardiac/Chest: other (AP) Abdomen: non-tender, soft, No distended Skin: normal color, warm/dry Extremities: No pedal edema Neuro/Psych: alert, oriented x 3, cognition abnormalities (improving) ICD10 Worksheet Patient Problems: Problems Problem Status Onset Acute blood loss anemia Acute S/P CABG x 3 Acute ~12/05/16 Chest pain Acute Chest pain Acute Coronary artery disease Acute GERD (gastroesophageal reflux disease) Acute Pacemaker Acute Stented coronary artery Acute
[2016-12-10] MEDS: CYANO/VITAMIN B12 1000 MCG TAB PO SCH (07:49)
[2016-12-10] MEDS: CITALOPRAM 20 MG TAB PO SCH (07:49)
[2016-12-10] MEDS: FUROSEMIDE 40 MG TAB PO SCH (07:49)
[2016-12-10] MEDS: METOPROLOL TARTRATE 25 MG TAB PO SCH (07:50)
[2016-12-10] MEDS: CHOLECALCIFEROL VIT D3 1,000 UNITS TAB PO SCH (07:50)
[2016-12-10] MEDS: PANTOPRAZOLE SODIUM 40 MG TAB PO SCH (07:50)
[2016-12-10] MEDS: ASPIRIN 81 MG CHEWABLE TAB PO SCH (07:50)
[2016-12-10] MEDS: MULTIVITAMINS 1 EACH TAB PO SCH (07:50)
[2016-12-10] MEDS: BUDESONIDE/FORMOTEROL 80/4.5 60 PUFFS/MDI IH SCH ×2 (09:30→21:12)
[2016-12-10] MEDS: POTASSIUM CL 20 MEQ TAB PO SCH (09:59)
[2016-12-10] MEDS ORDERED: ALBUMIN 5% 250 ML IV ONE (12:20)
[2016-12-10 13:19] LABS: POTASSIUM 3.8 mEq/L (3.5-5.2)
[2016-12-10] MEDS: TAMSULOSIN HCL 0.4 MG CAP PO SCH (13:31)
[2016-12-10] MEDS: ENOXAPARIN 40 MG/0.4 ML SYR SC SCH (13:31)
[2016-12-10] MEDS: ATORVASTATIN CALCIUM 40 MG TAB PO SCH (17:54)
[2016-12-10] MEDS: LORazepam 1 MG TAB PO SCH ×2 (20:30→20:40)
[2016-12-10] MEDS: IBUPROFEN 600 MG TAB PO PRN (20:39)
[2016-12-10] MEDS: AMIODARONE HCL 200 MG TAB PO SCH (20:39)
[2016-12-10] MEDS: ACETAMINOPHEN 325 MG TAB PO PRN (20:40)
[2016-12-11 05:39] LABS: HEMATOCRIT 25.8 % (40.0-51.0); HEMOGLOBIN 8.7 g/dL (13.7-17.5); MEAN CELL HEMOGLOBIN 32.6 pg (27.9-34.1); MEAN CELL HEMOGLOBIN CONCENTR. 33.7 g/dL (32.4-36.7); MEAN CELL VOLUME 96.6 fL (81.5-99.8); RED BLOOD CELL COUNT 2.67 10^6/uL (4.40-6.38); RED CELL DISTRIBUTION WIDTH 13.5 % (11.5-15.2)
[2016-12-11 05:50] LABS: CALCIUM 8.5 mg/dL (8.5-10.4); CARBON DIOXIDE 23 mEq/l (22-31); CHLORIDE 113 mEq/L (97-110); CREATININE 0.7 mg/dL (0.7-1.3); GLOMERULAR FILTRATION RATE > 60; GLUCOSE 100 mg/dL (70-100); SODIUM 142 mEq/L (134-144)
[2016-12-11 05:51] LABS: ANION GAP 6 mEq/L (8-16); POTASSIUM 4.1 mEq/L (3.5-5.2)
--- NOTE | 2016-12-11 07:29 | SOAPPROG ---
SOAP Progress Note Assessment/Plan: POD#6 CABG x 3 (HARTMANN-distal LAD, SV-D1, SV-PDA), prophylactic AtriClip ligation left atrial appendage, EVH left thigh. Sx severe CAD/remote IMI/failed PCI - s/p CABG. Secondary prevention with baby ASA, BB as tolerated by BP, and statin. Ischemic cardiomyopathy - LVEF 40-45% preop. Improved systolic fx post revasc. Hemodynamics optimized w low dose pressor support. Bedside echo neg for pericardial effusion, or LVSD. Staggered intro of heart failure meds as appropriate. Postop acute encephalopathy - Improving. RN will work on avoiding daytime sleeping. Will consider low-dose Seroquel tonight. Presence of ICD - Remote hx of VT. Nl pacer fx by postop interrogation. DDDR mode. Lower rate 70. Mostly Apaced 70. Acute expected blood loss anemia - Stable. No blood products transfused. Plts > 100. Continue Lovenox SQ for DVT prophylaxis. RAD/COPD - Stable. Extubated without incident. Chronic MDIs to resume. Adjunctive mucolytic prn. MIGEL on CPAP - Stable. Home device in room. Paroxysmal AF - Conversion to paced SR with amiodarone. BB held d/t hypotension. Thromboprophylaxis deferred d/t JARED ligation as well as short duration of arrhythmia. Subjective: Denies pain, SOB. Sleepy this morning. Objective: Vital Signs Temp Pulse Resp BP Pulse Ox 36.6 C 70 20 129/62 H 98 12/11/16 07:12 12/11/16 07:12 12/11/16 07:12 12/11/16 07:12 12/11/16 07:12 Laboratory Results 12/11/16 05:25 12/11/16 05:25 12/10/16 12/11/16 12/12/16 05:59 05:59 05:59 Intake Total 2370 2130 Output Total 3270 1990 Balance -900 140 Physical Exam - Physical Exam General Appearance: no apparent distress EENT: No scleral icterus (R), No scleral icterus (L) Neck: normal inspection Respiratory: No respiratory distress Cardiac/Chest: other (AP) Abdomen: non-tender, soft, No distended Skin: normal color, warm/dry Extremities: No pedal edema Neuro/Psych: motor weakness, cognition abnormalities (intermittent), speech abnormalities (intermittent) ICD10 Worksheet Patient Problems: Problems Problem Status Onset Acute blood loss anemia Acute S/P CABG x 3 Acute ~12/05/16 Chest pain Acute Chest pain Acute Coronary artery disease Acute GERD (gastroesophageal reflux disease) Acute Pacemaker Acute Stented coronary artery Acute
[2016-12-11] MEDS: FUROSEMIDE 40 MG TAB PO SCH (09:10)
[2016-12-11] MEDS: TAMSULOSIN HCL 0.4 MG CAP PO SCH (09:10)
[2016-12-11] MEDS: CITALOPRAM 20 MG TAB PO SCH (09:10)
[2016-12-11] MEDS: MULTIVITAMINS 1 EACH TAB PO SCH (09:10)
[2016-12-11] MEDS: AMIODARONE HCL 200 MG TAB PO SCH ×2 (09:10→20:34)
[2016-12-11] MEDS: CHOLECALCIFEROL VIT D3 1,000 UNITS TAB PO SCH (09:10)
[2016-12-11] MEDS: CYANO/VITAMIN B12 1000 MCG TAB PO SCH (09:10)
[2016-12-11] MEDS: PANTOPRAZOLE SODIUM 40 MG TAB PO SCH (09:10)
[2016-12-11] MEDS: ASPIRIN 81 MG CHEWABLE TAB PO SCH (09:10)
[2016-12-11] MEDS: POTASSIUM CL 20 MEQ TAB PO SCH (09:11)
[2016-12-11] MEDS: ENOXAPARIN 40 MG/0.4 ML SYR SC SCH (09:11)
[2016-12-11] MEDS: BUDESONIDE/FORMOTEROL 80/4.5 60 PUFFS/MDI IH SCH ×2 (09:29→20:05)
[2016-12-11] MEDS: IBUPROFEN 600 MG TAB PO PRN (14:27)
[2016-12-11] MEDS: ACETAMINOPHEN 325 MG TAB PO PRN (14:27)
--- NOTE | 2016-12-11 15:50 | CPEKG ---
Heart Rate: 70 RR Interval: 857 P-R Interval: 156 QRSD Interval: 88 QT Interval: 427 QTC Interval: 461 QRS [place]: 32 T Wave [place]: 17 EKG Severity - ABNORMAL ECG - EKG Impression: ATRIAL-PACED RHYTHM EKG Impression: BORDERLINE T ABNORMALITIES, LATERAL LEADS Electronically Signed By: Orlando Duran 11-Dec-2016 17:00:30
[2016-12-11] MEDS: ATORVASTATIN CALCIUM 40 MG TAB PO SCH (17:40)
[2016-12-11] MEDS ORDERED: QUEtiapine FUMARATE 25 MG TAB PO ONE (21:00)
--- NOTE | 2016-12-12 06:25 | SOAPPROG ---
SOAP Progress Note Assessment/Plan: POD#7 CABG x 3 (HARTMANN-distal LAD, SV-D1, SV-PDA), prophylactic AtriClip ligation left atrial appendage, EVH left thigh. Sx severe CAD/remote IMI/failed PCI - s/p CABG. Secondary prevention with baby ASA, BB as tolerated by BP, and statin. Ischemic cardiomyopathy - LVEF 40-45% preop. Improved systolic fx post revasc. Hemodynamics optimized w low dose pressor support. Bedside echo neg for pericardial effusion, or LVSD. Staggered intro of heart failure meds as appropriate. Postop acute encephalopathy - Improving. RN will work on avoiding daytime sleeping. Will consider low-dose Seroquel tonight. Presence of ICD - Remote hx of VT. Nl pacer fx by postop interrogation. DDDR mode. Lower rate 70. Mostly Apaced 70. Acute expected blood loss anemia - Stable. No blood products transfused. Plts > 100. Continue Lovenox SQ for DVT prophylaxis. RAD/COPD - Stable. Extubated without incident. Chronic MDIs to resume. Adjunctive mucolytic prn. MIGEL on CPAP - Stable. Home device in room. Paroxysmal AF - Conversion to paced SR with amiodarone. BB held d/t hypotension. Thromboprophylaxis deferred d/t JARED ligation as well as short duration of arrhythmia. 12/12/16 06:23 Subjective: Slept well last night. Feels rested. Objective: Vital Signs Temp Pulse Resp BP Pulse Ox 37.4 C 67 18 133/63 H 93 12/12/16 04:00 12/12/16 04:00 12/12/16 04:00 12/12/16 04:00 12/12/16 04:00 Laboratory Results 12/11/16 05:25 12/11/16 05:25 12/11/16 12/12/16 12/13/16 05:59 05:59 05:59 Intake Total 2130 625 Output Total 1989 164 Balance 140 100 Physical Exam - Physical Exam General Appearance: alert, no apparent distress Neck: normal inspection Respiratory: No respiratory distress Cardiac/Chest: other (AP) Abdomen: non-tender, soft, No distended Skin: normal color, warm/dry Extremities: No pedal edema Neuro/Psych: alert, cognition abnormalities (improved) ICD10 Worksheet Patient Problems: Problems Problem Status Onset Acute blood loss anemia Acute S/P CABG x 3 Acute ~12/05/16 Chest pain Acute Chest pain Acute Coronary artery disease Acute GERD (gastroesophageal reflux disease) Acute Pacemaker Acute Stented coronary artery Acute
[2016-12-12] MEDS: CHOLECALCIFEROL VIT D3 1,000 UNITS TAB PO SCH (07:42)
[2016-12-12] MEDS: ENOXAPARIN 40 MG/0.4 ML SYR SC SCH (07:42)
[2016-12-12] MEDS: FUROSEMIDE 40 MG TAB PO SCH (07:42)
[2016-12-12] MEDS: TAMSULOSIN HCL 0.4 MG CAP PO SCH (07:42)
[2016-12-12] MEDS: MULTIVITAMINS 1 EACH TAB PO SCH (07:42)
[2016-12-12] MEDS: CYANO/VITAMIN B12 1000 MCG TAB PO SCH (07:43)
[2016-12-12] MEDS: POTASSIUM CL 20 MEQ TAB PO SCH (07:43)
[2016-12-12] MEDS: AMIODARONE HCL 200 MG TAB PO SCH ×2 (07:43→20:31)
[2016-12-12] MEDS: CITALOPRAM 20 MG TAB PO SCH (07:43)
[2016-12-12] MEDS: PANTOPRAZOLE SODIUM 40 MG TAB PO SCH (07:43)
[2016-12-12] MEDS: ASPIRIN 81 MG CHEWABLE TAB PO SCH (07:43)
[2016-12-12] MEDS: METOPROLOL TARTRATE 25 MG TAB PO SCH ×2 (08:45→20:31)
[2016-12-12] MEDS: BUDESONIDE/FORMOTEROL 80/4.5 60 PUFFS/MDI IH SCH ×2 (09:18→20:55)
[2016-12-12] MEDS: ATORVASTATIN CALCIUM 40 MG TAB PO SCH (17:02)
[2016-12-12] MEDS: NYSTATIN SUSP 500000 UNIT/5 ML UDCUP PO SCH (20:31)
[2016-12-12] MEDS: QUEtiapine FUMARATE 25 MG TAB PO SCH (20:35)
[2016-12-13] MEDS: NYSTATIN SUSP 500000 UNIT/5 ML UDCUP PO SCH ×4 (06:17→20:02)
--- NOTE | 2016-12-13 07:51 | SOAPPROG ---
SOAP Progress Note Assessment/Plan: POD#8 CABG x 3 (HARTMANN-distal LAD, SV-D1, SV-PDA), prophylactic AtriClip ligation left atrial appendage, EVH left thigh. Sx severe CAD/remote IMI/failed PCI - s/p CABG. Secondary prevention with baby ASA, BB, and statin. Ischemic cardiomyopathy - LVEF 40-45% preop. Improved systolic fx post revasc. Hemodynamics optimized w low dose pressor support. Bedside echo neg for pericardial effusion, or LVSD. Staggered intro of heart failure meds as appropriate. Postop acute encephalopathy - Resolved. Continue nightly Seroquel. Presence of ICD - Remote hx of VT. Nl pacer fx by postop interrogation. DDDR mode. Lower rate 70. Mostly Apaced 70. Acute expected blood loss anemia - Stable. No blood products transfused. Plts > 100. Continue Lovenox SQ for DVT prophylaxis. RAD/COPD - Stable. Extubated without incident. Chronic MDIs to resume. Adjunctive mucolytic prn. MIGEL on CPAP - Stable. Home device in room. Paroxysmal AF - Conversion to paced SR with amiodarone/BB. Thromboprophylaxis deferred d/t JARED ligation as well as short duration of arrhythmia. Subjective: No complaints this morning. Slept well last night. Agrees to IP rehab. Objective: Vital Signs Temp Pulse Resp BP Pulse Ox 37.4 C 71 16 110/61 96 12/13/16 04:00 12/13/16 04:00 12/13/16 04:00 12/13/16 04:00 12/13/16 04:00 Laboratory Results 12/11/16 05:25 12/11/16 05:25 12/12/16 12/13/16 12/14/16 05:59 05:59 05:59 Intake Total 625 1250 Output Total 525 1820 Balance 100 -570 Physical Exam - Physical Exam General Appearance: WD/WN, alert, no apparent distress EENT: No scleral icterus (R), No scleral icterus (L) Neck: normal inspection Respiratory: No respiratory distress Cardiac/Chest: other (AP) Abdomen: non-tender, soft, distended Skin: normal color, warm/dry Extremities: No pedal edema Neuro/Psych: no motor/sensory deficits, alert, normal mood/affect, oriented x 3 ICD10 Worksheet Patient Problems: Problems Problem Status Onset Acute blood loss anemia Acute Chronic Disease Mgmt/Transitional Care Acute S/P CABG x 3 Acute ~12/05/16 Chest pain Acute Chest pain Acute Coronary artery disease Acute GERD (gastroesophageal reflux disease) Acute Pacemaker Acute Stented coronary artery Acute
[2016-12-13] MEDS: BUDESONIDE/FORMOTEROL 80/4.5 60 PUFFS/MDI IH SCH ×2 (09:07→20:03)
[2016-12-13] MEDS: ENOXAPARIN 40 MG/0.4 ML SYR SC SCH (09:56)
[2016-12-13] MEDS: CITALOPRAM 20 MG TAB PO SCH (09:57)
[2016-12-13] MEDS: FUROSEMIDE 40 MG TAB PO SCH (09:57)
[2016-12-13] MEDS: METOPROLOL TARTRATE 25 MG TAB PO SCH ×2 (09:57→20:02)
[2016-12-13] MEDS: ASPIRIN 81 MG CHEWABLE TAB PO SCH (09:58)
[2016-12-13] MEDS: TAMSULOSIN HCL 0.4 MG CAP PO SCH (09:59)
[2016-12-13] MEDS: PANTOPRAZOLE SODIUM 40 MG TAB PO SCH (09:59)
[2016-12-13] MEDS: CHOLECALCIFEROL VIT D3 1,000 UNITS TAB PO SCH (09:59)
[2016-12-13] MEDS: AMIODARONE HCL 200 MG TAB PO SCH ×2 (10:00→20:02)
[2016-12-13] MEDS: POTASSIUM CL 20 MEQ TAB PO SCH (10:00)
[2016-12-13] MEDS: MULTIVITAMINS 1 EACH TAB PO SCH (10:00)
[2016-12-13] MEDS: CYANO/VITAMIN B12 1000 MCG TAB PO SCH (10:00)
[2016-12-13] MEDS: QUEtiapine FUMARATE 25 MG TAB PO SCH (10:00)
[2016-12-13] MEDS: ATORVASTATIN CALCIUM 40 MG TAB PO SCH (17:17)
[2016-12-14] MEDS: NYSTATIN SUSP 500000 UNIT/5 ML UDCUP PO SCH (05:56)
--- NOTE | 2016-12-14 08:11 | SOAPPROG ---
SOAP Progress Note Assessment/Plan: POD#9 CABG x 3 (HARTMANN-distal LAD, SV-D1, SV-PDA), prophylactic AtriClip ligation left atrial appendage, EVH left thigh. Sx severe CAD/remote IMI/failed PCI - s/p CABG. Secondary prevention with baby ASA, BB, and statin. Ischemic cardiomyopathy - LVEF 40-45% preop. Improved systolic fx post revasc. Hemodynamics optimized w low dose pressor support. Bedside echo neg for pericardial effusion, or LVSD. Staggered intro of heart failure meds as appropriate. Postop acute encephalopathy - Resolved. Continue nightly Seroquel. Presence of ICD - Remote hx of VT. Nl pacer fx by postop interrogation. DDDR mode. Lower rate 70. Mostly Apaced 70. Acute expected blood loss anemia - Stable. No blood products transfused. Plts > 100. Continue Lovenox SQ for DVT prophylaxis. RAD/COPD - Stable. Extubated without incident. Chronic MDIs to resume. Adjunctive mucolytic prn. MIGEL on CPAP - Stable. Home device in room. Paroxysmal AF - Conversion to paced SR with amiodarone/BB. Thromboprophylaxis deferred d/t JARED ligation as well as short duration of arrhythmia. Disposition - transfer to [place] [facility] rehab today Subjective: Didn't sleep so well last night. Denies CP/SOB. Objective: Vital Signs Temp Pulse Resp BP Pulse Ox 36.9 C 71 15 131/68 H 96 12/14/16 04:00 12/14/16 04:00 12/14/16 04:00 12/14/16 04:00 12/14/16 04:00 Laboratory Results 12/11/16 05:25 12/11/16 05:25 12/13/16 12/14/16 12/15/16 05:59 05:59 05:59 Intake Total 1250 1610 Output Total 6763 9576 175 Balance -570 -533 -184 Physical Exam - Physical Exam General Appearance: WD/WN, alert, no apparent distress EENT: No scleral icterus (R), No scleral icterus (L) Neck: normal inspection Respiratory: No respiratory distress Cardiac/Chest: other (AP) Abdomen: non-tender, soft, No distended Skin: normal color, warm/dry Extremities: No pedal edema Neuro/Psych: no motor/sensory deficits, alert, normal mood/affect, oriented x 3 ICD10 Worksheet Patient Problems: Problems Problem Status Onset Acute blood loss anemia Acute Chronic Disease Mgmt/Transitional Care Acute S/P CABG x 3 Acute ~12/05/16 Chest pain Acute Chest pain Acute Coronary artery disease Acute GERD (gastroesophageal reflux disease) Acute Pacemaker Acute Stented coronary artery Acute
[2016-12-14 08:53] VITALS: TEMP 97.8
[2016-12-14] MEDS: POTASSIUM CL 20 MEQ TAB PO SCH (08:57)
[2016-12-14] MEDS: ENOXAPARIN 40 MG/0.4 ML SYR SC SCH (08:58)
[2016-12-14] MEDS: ASPIRIN 81 MG CHEWABLE TAB PO SCH (08:58)
[2016-12-14] MEDS: MULTIVITAMINS 1 EACH TAB PO SCH (08:58)
[2016-12-14] MEDS: CITALOPRAM 20 MG TAB PO SCH (08:59)
[2016-12-14] MEDS: PANTOPRAZOLE SODIUM 40 MG TAB PO SCH (09:00)
[2016-12-14] MEDS: METOPROLOL TARTRATE 25 MG TAB PO SCH (09:00)
[2016-12-14] MEDS: QUEtiapine FUMARATE 25 MG TAB PO SCH (09:01)
[2016-12-14] MEDS: AMIODARONE HCL 200 MG TAB PO SCH (09:02)
[2016-12-14] MEDS: FUROSEMIDE 40 MG TAB PO SCH (09:02)
[2016-12-14] MEDS: CHOLECALCIFEROL VIT D3 1,000 UNITS TAB PO SCH (09:03)
[2016-12-14] MEDS: TAMSULOSIN HCL 0.4 MG CAP PO SCH (09:03)
[2016-12-14] MEDS: CYANO/VITAMIN B12 1000 MCG TAB PO SCH (09:03)
[2016-12-14] MEDS: BUDESONIDE/FORMOTEROL 80/4.5 60 PUFFS/MDI IH SCH (09:13)
--- NOTE | 2016-12-14 10:09 | PDIAF ---
- Diagnosis Diagnosis: s/p CABG Code Status: Full Code - Medication Management Discharge Medications: Medications to Continue on Transfer Atorvastatin Calcium [Lipitor 40 mg (*)] 40 mg PO DAILY18 05/24/12 [Last Taken 1 Day Ago] Budesonide/Formoterol 160/4.5 [Symbicort 160-4.5 Mcg Inh (*)] 2 puffs IH BID 08/31 [Last Taken 12/05/16] Cholecalciferol Vit D3 [Vitamin D3 (*)] 1,000 units PO DAILY 05/24/12 [Last Taken 12/04/16] Herbals/Supplements -Info Only 1 tab PO DAILY 05/24/12 [Last Taken 12/04/16] Multivitamins [Multivitamin (*)] 1 tab PO DAILY 05/24/12 [Last Taken 12/04/16] Ranitidine HCl [Ranitidine HCl 150 mg] 150 mg PO BID 05/24/12 [Last Taken ] Albuterol [Proventil Inhaler HFA (*)] 1 - 2 puffs IH Q4H PRN 06/06/14 [Last Taken 12/05/16] Citalopram Hydrobromide [Citalopram HBr] 40 mg PO DAILY 10/17/16 [Last Taken ] Ipratropium 0.06% Nasal [Atrovent 0.06% Nasal] 2 sprays EACHNARE DAILY PRN 10/17 [Last Taken 12/05/16] Cyanocobalamin [Vitamin B12 (*)] 1,000 mcg PO DAILY 11/18/16 [Last Taken ] Propylene Glycol/Peg 400 [SYSTANE 0.3-0.4% EYE DROPS] 1 drop EACHEYE PRN PRN [Last Taken 12/04/16] Acetaminophen [Tylenol 325mg (*)] 325 - 650 mg PO Q4HRS PRN #0 tab 12/14/16 [ Last Taken Unknown] Amiodarone HCl [Pacerone (*)] 200 mg PO BID #0 tab 12/14/16 [Last Taken Unknown] Aspirin [Aspirin 81mg (*)] 81 mg PO DAILY #0 tab.chew 12/14/16 [Last Taken Unknown] Benzocaine/Menthol 15/4 [Cepacol Lozenge] 1 ea PO Q2HRS PRN #0 lozenge 12/14/16 [Last Taken Unknown] Furosemide [Lasix 40 MG (*)] 40 mg PO DAILY #0 tab 12/14/16 [Last Taken Unknown] Metoprolol Tartrate [Lopressor 25 mg (*)] 12.5 mg PO BID #0 tab 12/14/16 [Last Taken Unknown] Potassium Cl [Klor-Con 20 meq (*)] 20 meq PO DAILY #0 tab 12/14/16 [Last Taken Unknown] QUEtiapine FUMARATE [Seroquel 25 mg (*)] 25 mg PO DAILY PRN #0 tab 12/14/16 [ Last Taken Unknown] Tamsulosin HCl [Flomax 0.4 MG (*)] 0.4 mg PO DAILY #0 cap 12/14/16 [Last Taken Unknown] Discharge Medications: Refer to the Discharge Home Medication list for PRN reason. PICC Care - Routine: N/A - Orders Services needed: Registered Nurse, Certified Physiologist, Master Building Mover , Physical Therapy, Occupational Therapy, Speech Language Pathologist Oxygen: 2L NC Diet Recommendation: cardiac -low fat low salt, fluid restriction (use comment for amount) (2 Liters) Diet Texture: Dysphagia 1 - Pureed (May advance as tolerated.), Thin Liquids, Meds Whole in Puree Weigh Patient: daily [place]: No Wound Care Instructions: Cleanse wounds daily with soap and water. Avoid water immersion (pool, hot tub, bath) until scabs off. Leave all wounds open to air. Avoid creams or ointments until scabs off. Activity/Weight Bearing Restrictions: Sternal precautions x 3 weeks. Avoid lifting > 10lbs with an outstretched arm. Avoid push/pull activities. No driving until cleared by surgery. Elevate low legs at rest. Avoid prolonged standing or dangling. Additional: Call [facility] for overnight weight gain > 2lbs, weekly gain > 5lbs or worsening leg swelling. Call [facility] for resting heart rate > 120 or < 60 OR for systolic blood pressure consistently < 90 or > 140. Target oxygen saturation > 89%. - Labs/Radiology Imaging Orders: CXR PA/Lateral on 12/23 prior to surgical appointment with Dr. Woody. - Follow Up Care Current Providers and Referrals: Mauricio Garcia MD [Primary Care Provider] - Neftaly Woody DO [Doctor of Osteopathy] - 12/24/16 10:00 am
--- NOTE | 2016-12-14 10:13 | PDDCSUM ---
Discharge Summary Discharge Summary: ADMISSION DATE: 12/05/16 DISCHARGE DATE: 12/14/16 ADMISSION DX: 1. Coronary atherosclerotic disease 2. Ischemic cardiomyopathy 3. COPD DISCHARGE DX: 1. Coronary atherosclerotic disease 2. Ischemic cardiomyopathy 3. COPD 4. Postop acute blood loss anemia 5. Postop acute encephalopathy/ICU delirium 6. Postop paroxysmal atrial fibrillation 7. Postop urinary retention PROCEDURES 12/05/16, Neftaly Woody: 1. CABGx3 (HARTMANN-LAD, SVG-D1, SVG-PDA), AtriClip JARED, EVH left thigh HOSPITAL COURSE BY PROBLEM LIST 1. CAD s/p CABGx3 - well tolerated. Beta-sai, aspirin, and statin prescribed for secondary prevention. 2. Ischemic cardiomyopathy - pre-op EF of 45% with post-op improvement noted on ECHO. 3. COPD - stable as per pre-op medical management. 4. Postop acute blood loss anemia - stable without the need for transfusions. 5. Postop acute encephalopathy/ICU delirium - resolved with supportive care. Seroquel used for insomnia. 6. Postop paroxysmal atrial fibrillation - conversion to paced SR (presence of pre-op PPM) with amiodarone/BB. Thromboprophylaxis deferred d/t JARED ligation as well as short duration of arrhythmia. 7. Postop urinary retention - likely secondary to BPH as well as trauma associated with [place] use. Resolved with introduction of Flomax. CONDITION Good DISPOSITION [place] inpatient [facility] ACTIVITY Pt was instructed on sternal precautions, activity limitations, and which problems to call [facility] with. Please see Discharge Plan and Interagency Discharge Form in chart for specifics. D/C MEDICATIONS On admission: 1. Atorvastatin Calcium [Lipitor 40 mg (*)] 40 mg PO DAILY18 2. Budesonide/Formoterol 160/4.5 [Symbicort 160-4.5 Mcg Inh (*)] 2 puffs IH BID 3. Cholecalciferol Vit D3 [Vitamin D3 (*)] 1,000 units PO DAILY 4. Herbals/Supplements -Info Only 1 tab PO DAILY 5. Multivitamins [Multivitamin (*)] 1 tab PO DAILY 6. Ranitidine HCl [Ranitidine HCl 150 mg] 150 mg PO BID 7. Albuterol [Proventil Inhaler HFA (*)] 1 - 2 puffs IH Q4H PRN 8. Citalopram Hydrobromide [Citalopram HBr] 40 mg PO DAILY 9. Ipratropium 0.06% Nasal [Atrovent 0.06% Nasal] 2 sprays EACHNARE DAILY PRN 10. Cyanocobalamin [Vitamin B12 (*)] 1,000 mcg PO DAILY 11. Propylene Glycol/Peg 400 [SYSTANE 0.3-0.4% EYE DROPS] 1 drop EACHEYE PRN New: 1. Acetaminophen [Tylenol 325mg (*)] 325 - 650 mg PO Q4HRS PRN 2. Amiodarone HCl [Pacerone (*)] 200 mg PO BID 3. Aspirin [Aspirin 81mg (*)] 81 mg PO DAILY 4. Benzocaine/Menthol 15/4 [Cepacol Lozenge] 1 ea PO Q2HRS PRN 5. Furosemide [Lasix 40 MG (*)] 40 mg PO DAILY 6. Metoprolol Tartrate [Lopressor 25 mg (*)] 12.5 mg PO BID 7. Potassium Cl [Klor-Con 20 meq (*)] 20 meq PO DAILY 8. QUEtiapine FUMARATE [Seroquel 25 mg (*)] 25 mg PO DAILY PRN Insomnia 9. Tamsulosin HCl [Flomax 0.4 MG (*)] 0.4 mg PO DAILY 10. Oxygen 2L NC, continuous PENDING STUDIES/LABS 1. CXR prior to surgical follow-up F/U APPOINTMENTS 1. Neftaly Woody - 12/24/16, 10:00 AM
[2016-12-14 11:32] VITALS: BP 106/50; PULSE 71; RESP 14; O2SAT 92
== END 2016-12-14 12:14 | DRG 235 ==
LOC: F3E 08:28 → F2N 15:04 → F2W 12-11 16:09
PROVIDERS: ADMIT Thoracic Surgery (Cardiothoracic Vascular Surgery); ATTEND Thoracic Surgery (Cardiothoracic Vascular Surgery)
PROC: 5A1221Z Performance of Cardiac Output, Continuous (ICD-10-PCS; principal; 2016-12-05 10:00)
PROC: 06BQ4ZZ Excision of Left Saphenous Vein, Percutaneous Endoscopic Approach (ICD-10-PCS; principal; 2016-12-05 10:00)
PROC: 02100Z9 Bypass Coronary Artery, One Artery from Left Internal Mammary, Open Approach (ICD-10-PCS; principal; 2016-12-05 10:00)
PROC: 021109W Bypass Coronary Artery, Two Arteries from Aorta with Autologous Venous Tissue, Open Approach (ICD-10-PCS; principal; 2016-12-05 10:00)
PROC: 02L70CK Occlusion of Left Atrial Appendage with Extraluminal Device, Open Approach (ICD-10-PCS; principal; 2016-12-05 10:00)
DX: I25.10 Atherosclerotic heart disease of native coronary artery without angina pectoris (principal); G93.49 Other encephalopathy; D62 Acute posthemorrhagic anemia; J44.9 Chronic obstructive pulmonary disease, unspecified; I48.0 Paroxysmal atrial fibrillation; R33.8 Other retention of urine; I25.5 Ischemic cardiomyopathy; N40.1 Benign prostatic hyperplasia with lower urinary tract symptoms; E78.5 Hyperlipidemia, unspecified; G47.33 Obstructive sleep apnea (adult) (pediatric); I10 Essential (primary) hypertension; Z95.810 Presence of automatic (implantable) cardiac defibrillator
CPT/HCPCS: 82947-QW; 86022-90; 92507-GN; 92523-GN; 92526-GN; 92610-GN; 97116-GP; 97162-GP; 97165-GO; 97530-GO; 97530-GP; 97535-GO; C1768; G8978-GP-CM; G8979-GP-CJ; G8987-GO-CM; G8988-GO-CK; G8996-GN-CM; G8997-GN-CI; G9165-GN-CL; G9166-GN-CL; G9167-GN-CL; J0282; J0360; J0690; J1265; J1650; J1815; J1885; J1940; J2060; J2150; J2250; J2370; J2440; J2704; J3010; P9041

== ENCOUNTER 2016-12-13 15:35 | Inpatient (IN) | payer OTHER ==
[2016-12-14] MEDS ORDERED: NON-FORMULARY NEW DRUG (Propylene Glycol/Peg 400 [Systane 0.3-0.4% Eye Drops] 1 DROP) EACHEYE PRN (14:15)
[2016-12-14] MEDS ORDERED: CEPACOL LOZENGE PO PRN (14:15)
[2016-12-14] MEDS ORDERED: ALBUTEROL 60 PUFFS/8 GM MDI IH PRN (14:15)
[2016-12-14] MEDS ORDERED: BISACODYL 10 MG SUPP PR PRN (14:20)
[2016-12-14] MEDS ORDERED: MAGNESIUM HYDROXIDE 30 ML UDCUP PO PRN (14:20)
[2016-12-14] MEDS ORDERED: MAG HYDROX/AL HYDROX/SIMETH 30 ML UDCUP PO PRN (14:20)
[2016-12-14] MEDS ORDERED: CARBOXYMETHYLCELLULOSE 1% 0.4 ML DROPERETTE EACHEYE PRN (14:28)
[2016-12-14] MEDS: ATORVASTATIN CALCIUM 40 MG TAB PO SCH (17:32)
[2016-12-14] MEDS: SENNOSIDES/DOCUSATE SODIUM TAB PO SCH (20:35)
[2016-12-14] MEDS: FAMOTIDINE 20 MG TAB PO SCH (20:36)
[2016-12-14] MEDS: METOPROLOL TARTRATE 25 MG TAB PO SCH (20:37)
[2016-12-14] MEDS: AMIODARONE HCL 200 MG TAB PO SCH (20:39)
[2016-12-14] MEDS: BUDESONIDE/FORMOTEROL 160/4.5 60 PUFFS/MDI IH SCH (20:45)
[2016-12-14] MEDS ORDERED: NON-FORMULARY NEW DRUG (Ranitidine Hcl [Ranitidine Hcl 150 Mg] 150 MG) PO SCH (21:00)
--- NOTE | 2016-12-14 21:22 | PDGENHP ---
History and Physical - Chief Complaint s/p CABG c/b encephalopathy - History of Present Illness Date of admission: 12/15/2016 Referring physician: Neftaly Woody MD Time of evaluation: 1300 Referring facility: [facility] diagnosis: CABG, Encephalopathy Impairment group: 07.31 Etiologic diagnosis: CABG, Encephalopathy Date of onset: 12/05/2016 History of present illness: Mr. Jeronimo is a 81yo RHD M with h/o COPD/MIGEL, GERD, paroxysmal afib and ischemic cardiomyopathy s/p ICD/pacemaker who was admitted for CABG and Left Atrial appendage ligation following remote RI with severe CAD and failed PCI on 12/05/[address] Woody. Surgery was uncomplicated but post-op course notable for paroxismal afib (conversion to paced SR with amio and BB), persistent encephalopathy, urinary retention, and dysphagia. His mental status has improved significantly in past several days, with resolved urinary retention on flomax, and is now having his diet advanced. Currently reports some mild chest wall pain but denies SOB, palpitations, cough. History Information - Allergies/Home Medication List Allergies/Adverse Reactions: Sulfa (Sulfonamide Antibiotics) Allergy (Unknown, Verified 02/25/15 10:32) Hives hydrochlorothiazide [From Dyazide] Allergy (Verified 02/25/15 10:32) triamterene [Triamterene] Allergy (Verified 02/25/15 10:32) Home Medications: Atorvastatin Calcium [Lipitor 40 mg (*)] 40 mg PO DAILY18 05/24/12 [Last Taken 12/13/16 17:17] Budesonide/Formoterol 160/4.5 [Symbicort 160-4.5 Mcg Inh (*)] 2 puffs IH BID 08/31 [Last Taken 12/05/16] Cholecalciferol Vit D3 [Vitamin D3 (*)] 1,000 units PO DAILY 05/24/12 [Last Taken 12/14/16 09:03] Herbals/Supplements -Info Only 1 tab PO DAILY 05/24/12 [Last Taken 12/04/16] Multivitamins [Multivitamin (*)] 1 tab PO DAILY 05/24/12 [Last Taken 12/14/16 08 :58] Ranitidine HCl [Ranitidine HCl 150 mg] 150 mg PO BID 05/24/12 [Last Taken ] Albuterol [Proventil Inhaler HFA (*)] 1 - 2 puffs IH Q4H PRN 06/06/14 [Last Taken 12/05/16] Citalopram Hydrobromide [Citalopram HBr] 40 mg PO DAILY 10/17/16 [Last Taken 08:59] Ipratropium 0.06% Nasal [Atrovent 0.06% Nasal] 2 sprays EACHNARE DAILY PRN 10/17 [Last Taken 12/05/16] Cyanocobalamin [Vitamin B12 (*)] 1,000 mcg PO DAILY 11/18/16 [Last Taken 09:03] Propylene Glycol/Peg 400 [SYSTANE 0.3-0.4% EYE DROPS] 1 drop EACHEYE PRN PRN [Last Taken 12/04/16] I have personally reviewed and updated: family history, medical history, social history, surgical history - Past Medical History coronary artery disease, COPD - Surgical History Reports: coronary bypass surgery, pacemaker/AICD, coronary stent - Family History Positive for: CAD - Social History Smoking Status: Former smoker Additional social history: Retired and Lives alone in [place] home with ~34 stairs to enter. No family nearby. Prior to admissionwas independent in all tasks and was still driving, postoperatively was dependent for most tasks due to AMS. Review of Systems ROS: 10pt was reviewed & negative except for what was stated in HPI & below Constitutional: Denies: chills EENMT: Denies: no symptoms Cardiac: Denies: chest pain, palpitations Respiratory: Denies: cough Gastrointestinal: Reports: no symptoms Genitourinary: Reports: no symptoms Muscolosketal: Denies: no symptoms Neurological: Reports: no symptoms Hematologic/Lymphatic: Reports: no symptoms Immunologic/Allergy: Reports: no symptoms Physical Exam Temp Pulse Resp BP Pulse Ox 36.9 C 70 16 112/57 L 92 12/14/16 19:54 12/14/16 19:54 12/14/16 19:54 12/14/16 19:54 12/14/16 19:54 O2 (L/minute) 1 Constitutional: no apparent distress, appears nourished, not in pain Eyes: anicteric sclera Ears, Nose, Mouth, Throat: hearing normal Cardiovascular: regular rate and rhythym Respiratory: no respiratory distress, no rales or rhonchi, reduced air movement (poor effort but deminished in left base) Gastrointestinal: normoactive bowel sounds, soft, non-tender abdomen Skin: warm, normal color, No pressure ulcer Musculoskeletal: full muscle strength (trace proximal LE weakness), normal joint ROM Neurologic: AAOx3 (follows 2-step commands), sensation intact bilaterally, CN II -XII Intact, No numbness, No asterixes Psychiatric: interacting appropriately, not encephalopathic, thought process linear Lymph, Heme, Immunologic: ecchymoses (right thigh donor site, healing well no e/ o infection) Lab Data & Imaging Review Relevant labs (12/11) WBC 9.97, Hgb 8.7, Plt 142 NA 142 K 4.1 Cl 113 C02 23 BUN 28 Cr 0.7 Glu 100 Chest X-Ray results: other (small bilateral effusion, increased left atelectasis ) Assessment & Plan Assessment: Mr. Jeronimo is a pleasant right handed 81 year old man with recent 3v CABG complicated by prolonged post-op encephalopathy. All of which has resulted in significant deconditioning and functional decline. Currently is requiring assistance for most ADLs and mobility. He is appropriate for rehabilitation with therapy needs for physical, speech, and occupational therapy regarding mobility, dysphagia, cognitive decline, and activities of daily living. His goal is to be independent enough to return home and live without assistance. He will need close medical management and nursing care regarding her comorbidities including pulmonary disease, risk for falls, risk for aspiration, ongoing cardiac monitoring, initiation of complicated novel medical regiment, and medical education. He will receive therapy including Physical, speech, and occupational therapy for 30-60 minutes each day 5-7 days a week, with a total of 15 hours per week or more, her expected duration of stay is 14 to 18 days. Is expected that once he is ready for discharge he will continue to benefit from a comprehensive home based rehab program once he returns home. Plan: * Ischemic cardiomyopathy/CAD s/p 3v CABG- Initiate comprehensive AIR with RN, and physical, speech and occupational therapy to optimize functional status and mobility -Sternal precautions x 3 weeks: no lifting >10lbs, no push/pull, no driving -Wound care: no submersion, open to air, cleanse daily, elevate right donor site when in bed -Fluid status: stable on admit, daily weights, cont. lasix 40 and 2L fluid restriction -Secondary prevention: cont. ASA 81mg, statin, BB * Paroxsymal Afib post-op- converted to paced SR, cont. Amiodarone 200BID and lopressor 12.5 BID, no thromboprophy per card d/t JARED ligation and short duration of the arrhythmia * Post-op Dysphagia: Cardiac diet with Puree + thins to advance per MAINTENANCE FITTER * Cognitive decline: eval per MAINTENANCE FITTER * Post-op encephalopthy- resolved, cont seroquel HS on prn basis * H/o COPD/MIGEL: sating well on 2L, home CPAP qHS, will restart home inhalers and ween 02 as tolerated (no home 02) * Post-op urinary retention/BPH: resolved, cont. flomax * Post-op anemia: stable, will check on admit Prophylaxis-> cont. LMWH. GI, on ranitidine BID FULL CODE, this was discussed with pt on admit POA/friends: Zeeshan+Deneen Melo [phone] F/U: Dr. Mauricio Garcia (PCP) after d/c Dr. Woody (CT Surgery) on 12/24 at 10am, will need PA/LAT CXR prior to visit [facility] 18 days. Plan to d/c to home if able with 30+TAN, no assistance available at home will need to be independent
--- NOTE | 2016-12-15 07:07 | PDOREHIP ---
Admission [facility] - Admission - 3 Day Assessment Period Admission Date/Day 1: 12/14/16 Day 2: 12/15/16 Day 3: 12/16/16 - Active Diagnoses Comorbidities and Co-existing Conditions at Admission: 95025. None of the Above - Skin Conditions Unhealed Pressure Ulcer (1 or more/Stage 1 or >)-Admission: 0. No
[2016-12-15 07:44] LABS: % IMMATURE GRANULYOCYTES 0.6 % (0.0-1.1); ABSOLUTE IMMATURE GRANULOCYTES 0.07 10^3/uL (0.00-0.10); ADD DIFF? NO; ADD MORPH? NO; ADD SCAN? NO; ATYPICAL LYMPHOCYTE FLAG 0 (0-99); FRAGMENT RBC FLAG 0 (0-99); HEMATOCRIT 26.4 % (40.0-51.0); HEMOGLOBIN 8.8 g/dL (13.7-17.5); LEFT SHIFT FLG 40 (0-99); LIPEMIA HEMOLYSIS FLAG 80 (0-99); MEAN CELL HEMOGLOBIN 32.1 pg (27.9-34.1); MEAN CELL HEMOGLOBIN CONCENTR. 33.3 g/dL (32.4-36.7); MEAN CELL VOLUME 96.4 fL (81.5-99.8); MEAN PLATELET VOLUME 12.1 fL (8.7-11.7); PLATELET CLUMPS FLAG 0 (0-99); PLATELET COUNT 221 10^3/uL (150-400); RED BLOOD CELL COUNT 2.74 10^6/uL (4.40-6.38); RED CELL DISTRIBUTION WIDTH 13.2 % (11.5-15.2)
[2016-12-15 07:52] LABS: ANION GAP 8 mEq/L (8-16); CALCIUM 8.4 mg/dL (8.5-10.4); CARBON DIOXIDE 22 mEq/l (22-31); CHLORIDE 103 mEq/L (97-110); CREATININE 0.7 mg/dL (0.7-1.3); GLOMERULAR FILTRATION RATE > 60; GLUCOSE 98 mg/dL (70-100); POTASSIUM 3.7 mEq/L (3.5-5.2); SODIUM 133 mEq/L (134-144)
[2016-12-15] MEDS ORDERED: NON-FORMULARY NEW DRUG (Citalopram Hydrobromide [Citalopram Hbr] 40 MG) PO SCH (09:00)
--- NOTE | 2016-12-15 09:11 | SOAPPROG ---
SOAP Progress Note Assessment/Plan: Assessment: * Ischemic cardiomyopathy/CAD s/p 3v CABG- Initiate comprehensive AIR with RN, and physical, speech and occupational therapy to optimize functional status and mobility -Sternal precautions x 3 weeks: no lifting >10lbs, no push/pull, no driving -Wound care: no submersion, open to air, cleanse daily, elevate right donor site when in bed -Secondary prevention: cont. ASA 81mg, statin, BB * Fluid status: hypotensive today 12/15/16. Repeat weight; doubt 5.7 kg gain in one day. Hold furosemide, cont 2L fluid restriction * Hyponatremia, mild. He reports prior episode when he was drinking too much fluid. Check serum & urin osm, urine Na. Recheck in AM 12/16/16. * Hypotension: hold metoprolol. * Paroxsymal Afib post-op- converted to paced SR, cont. Amiodarone 200BID, hole metoprolol for low BP.l No thromboprophy per card d/t JARED ligation and short duration of the arrhythmia * Post-op Dysphagia: Cardiac diet with Puree + thins to advance per TIN ROOFER * Cognitive decline: eval per TIN ROOFER * Post-op encephalopthy- resolved, cont seroquel HS on prn basis * H/o COPD/MIGEL: oxygenating well on 2L, home CPAP qHS, will restart home inhalers and ween 02 as tolerated (no home 02) * Post-op urinary retention/BPH: resolved, cont. flomax * Post-op anemia: improving on labs 12/15/16. Prophylaxis-> cont. LMWH. GI, on ranitidine BID FULL CODE, this was discussed with pt on admit POA/friends: ZeeshanBel Melo [phone] F/U: Dr. Mauricio Garcia (PCP) after d/c Dr. Woody (CT Surgery) on 12/24 at 10am, will need PA/LAT CXR prior to visit [facility] 18 days. Plan to d/c to home if able with 30+TAN, no assistance available at home will need to be independent 12/15/16 10:46 Subjective: C/O SOB with activities. No cough, no sputum. Pain adequately controlled. No F/C. Objective: Vital Signs Temp Pulse Resp BP Pulse Ox 36.9 C 64 16 112/57 L 91 L 12/14/16 19:54 12/15/16 03:13 12/14/16 19:54 12/14/16 19:54 12/15/16 03:13 Laboratory Results 12/15/16 06:30 12/15/16 06:30 12/14/16 12/15/16 12/16/16 05:59 05:59 05:59 Intake Total 50 Output Total 625 Balance -575 Physical Exam - Physical Exam General Appearance: WD/WN, alert, no apparent distress Respiratory: normal breath sounds, decreased breath sounds (RLL), other ( reduced respiratory excursion), No crackles, No rhonchi, No wheezing Cardiac/Chest: regular rate, rhythm, No edema Skin: normal color, warm/dry Neuro/Psych: no motor/sensory deficits, alert, normal mood/affect, oriented x 3 , cognition abnormalities (slow responses, word-finding difficulty) ICD10 Worksheet Patient Problems: Problems Problem Status Onset Acute blood loss anemia Acute Chronic Disease Mgmt/Transitional Care Acute S/P CABG x 3 Acute ~12/05/16 Chest pain Acute Chest pain Acute Coronary artery disease Acute GERD (gastroesophageal reflux disease) Acute Pacemaker Acute Stented coronary artery Acute
[2016-12-15] MEDS: AMIODARONE HCL 200 MG TAB PO SCH ×2 (09:12→20:31)
[2016-12-15] MEDS: ASPIRIN 81 MG CHEWABLE TAB PO SCH (09:13)
[2016-12-15] MEDS: CHOLECALCIFEROL VIT D3 1,000 UNITS TAB PO SCH (09:14)
[2016-12-15] MEDS: CITALOPRAM 20 MG TAB PO SCH (09:15)
[2016-12-15] MEDS: CYANO/VITAMIN B12 1000 MCG TAB PO SCH (09:15)
[2016-12-15] MEDS: ENOXAPARIN 40 MG/0.4 ML SYR SC SCH (10:15)
[2016-12-15] MEDS: BUDESONIDE/FORMOTEROL 160/4.5 60 PUFFS/MDI IH SCH ×2 (10:15→20:32)
[2016-12-15] MEDS: SENNOSIDES/DOCUSATE SODIUM TAB PO SCH ×3 (10:15→20:31)
[2016-12-15] MEDS: FAMOTIDINE 20 MG TAB PO SCH ×2 (10:15→20:31)
[2016-12-15] MEDS: POTASSIUM CL 20 MEQ TAB PO SCH (10:16)
[2016-12-15] MEDS: MULTIVITAMINS 1 EACH TAB PO SCH (10:16)
[2016-12-15] MEDS: TAMSULOSIN HCL 0.4 MG CAP PO SCH (10:16)
[2016-12-15] MEDS: ACETAMINOPHEN 325 MG TAB PO PRN (10:27)
[2016-12-15] MEDS: FUROSEMIDE 40 MG TAB PO SCH (12:29)
[2016-12-15] MEDS: guaiFENesin 600 MG TAB.ER PO SCH ×3 (12:30→20:31)
[2016-12-15] MEDS: METOPROLOL TARTRATE 25 MG TAB PO SCH (12:31)
[2016-12-15 16:13] LABS: COLOR YELLOW; LEUKOCYTE ESTERASE,URINE NEGATIVE (NEGATIVE); NITRITE,URINE NEGATIVE (NEGATIVE)
[2016-12-15] MEDS: ATORVASTATIN CALCIUM 40 MG TAB PO SCH (16:52)
[2016-12-16] MEDS: ACETAMINOPHEN 325 MG TAB PO PRN ×2 (00:41→13:58)
[2016-12-16] MEDS: CANN-EASE 2 GM TUBE TP PRN ×3 (00:43→20:37)
[2016-12-16] MEDS: QUEtiapine FUMARATE 25 MG TAB PO PRN (02:21)
[2016-12-16] MEDS: AMIODARONE HCL 200 MG TAB PO SCH ×2 (08:42→20:41)
[2016-12-16] MEDS: BUDESONIDE/FORMOTEROL 160/4.5 60 PUFFS/MDI IH SCH ×4 (08:43→20:39)
[2016-12-16] MEDS: ASPIRIN 81 MG CHEWABLE TAB PO SCH (08:43)
[2016-12-16] MEDS: CETIRIZINE 10 MG TAB PO SCH (08:43)
[2016-12-16] MEDS: CHOLECALCIFEROL VIT D3 1,000 UNITS TAB PO SCH (08:43)
[2016-12-16] MEDS: ENOXAPARIN 40 MG/0.4 ML SYR SC SCH (08:44)
[2016-12-16] MEDS: CITALOPRAM 20 MG TAB PO SCH (08:44)
[2016-12-16] MEDS: FUROSEMIDE 40 MG TAB PO SCH (08:44)
[2016-12-16] MEDS: CYANO/VITAMIN B12 1000 MCG TAB PO SCH (08:44)
[2016-12-16] MEDS: FAMOTIDINE 20 MG TAB PO SCH ×2 (08:44→20:41)
[2016-12-16] MEDS: guaiFENesin 600 MG TAB.ER PO SCH ×2 (08:45→20:41)
[2016-12-16] MEDS: METOPROLOL TARTRATE 25 MG TAB PO SCH ×2 (08:45→20:41)
[2016-12-16] MEDS: POTASSIUM CL 20 MEQ TAB PO SCH (08:46)
[2016-12-16] MEDS: MULTIVITAMINS 1 EACH TAB PO SCH (08:46)
[2016-12-16] MEDS: SENNOSIDES/DOCUSATE SODIUM TAB PO SCH ×2 (08:46→20:40)
[2016-12-16] MEDS: TAMSULOSIN HCL 0.4 MG CAP PO SCH (08:47)
--- NOTE | 2016-12-16 12:26 | SOAPPROG ---
SOAP Progress Note Assessment/Plan: Assessment: * Ischemic cardiomyopathy/CAD s/p 3v CABG, complicated by encephalopathy, debility and dysphagia. Initial FIM 77. Walked 120' FWW SBA. Impaired standing balance, easy fatigue.Min A UB dressing, shower transfer and bathing. Continue physical, speech and occupational therapy to optimize functional status and mobility -Sternal precautions x 3 weeks: no lifting >10lbs, no push/pull, no driving -Wound care: no submersion, open to air, cleanse daily, elevate right donor site when in bed -Secondary prevention: cont. ASA 81mg, statin, BB * Encephalopathy, improving. Mild - mod deficits to memory, attn, SOP. Continue ANALYTICAL STRATEGIST. Diet advanced today 12/16/16 to DD2. * Hypoxemia and FARRELL. CXR 12/16/16 with new L pleural effusion and infiltrate vs. atelectasis LLL. CBC with WBCs slightly higher than yesterday. Will treat with levofloxacin 750 mg QD X 5 days. Encourage incentive spirometry. * Chills w/out fever; elevated WBCs 12/15/16. Wounds look good. UA normal . Levofloxacin for possible pneumonia. * Fluid status: hypotensive 12/15/16. Held furosemide, cont 2L fluid restriction. Weight down to 87 kg 12/16/16. Change furosemide from 40 mg QD to 20 mg QD starting 12/17/16; consider continuing taper towards DC. EF 70% after surgery. Recheck BMP. * Hyponatremia, mild. He reports prior episode when he was drinking too much fluid. Serum < urine osm, low urine Na 12/15/16. Possible low level of SIADH. Would expect higher urine Na with furosemide. Resolved on BMP 12/16/16. * Hypotension: held metoprolol 12/15/16. * Paroxsymal Afib post-op- converted to paced SR, cont. Amiodarone 200BID, hole metoprolol for low BP.l No thromboprophy per card d/t JARED ligation and short duration of the arrhythmia * Post-op Dysphagia: Cardiac diet with Puree + thins to advance per ANALYTICAL STRATEGIST * Cognitive decline: eval per ANALYTICAL STRATEGIST * Post-op encephalopthy- resolved, cont seroquel HS on prn basis * H/o COPD/MIGEL: oxygenating well on 2L, home CPAP qHS, will restart home inhalers and ween 02 as tolerated (no home 02) * Post-op urinary retention/BPH: resolved, cont. flomax * Post-op anemia: improving on labs 12/15/16. Prophylaxis-> cont. LMWH. GI, on ranitidine BID FULL CODE, this was discussed with pt on admit POA/friends: Svitlana Melo [phone] F/U: Dr. Mauricio Garcia (PCP) after d/c Dr. Woody (CT Surgery) on 12/24 at 10am, will need PA/LAT CXR prior to visit Attended staffing, 15 min. D/W case mgmt, nursing, PT, OT, ANALYTICAL STRATEGIST, doctor of radiology. [place] 23STE, no assistance available at home will need to be independent. Tentative D/C 12/24/16. Outpatient cardiac rehabilitation after D/C. 12/16/16 13:52 12/16/16 16:22 Subjective: Episode of chills today. Also noted to be SOB with activities. Denies cough, f /c, dysuria. Has some R CP; asks aboutr CBD oil. Objective: Vital Signs Temp Pulse Resp BP Pulse Ox 36.7 C 71 16 104/51 L 95 12/16/16 06:47 12/16/16 08:45 12/16/16 06:47 12/16/16 08:45 12/16/16 06:47 Laboratory Results 12/15/16 06:30 12/15/16 06:30 12/15/16 12/16/16 12/17/16 05:59 05:59 05:59 Intake Total 50 1965 240 Output Total 519 9685 Balance -577 780 240 - Time Spent With Patient Time Spent With Patient: Greater than 35 minutes floor time today, including more than 50% of time in coordination of care during staffing meeting, and counseling patient. Physical Exam - Physical Exam General Appearance: WD/WN, alert, no apparent distress Respiratory: normal breath sounds, No crackles, No rhonchi, No wheezing Cardiac/Chest: regular rate, rhythm, edema (trace B LE) Skin: normal color, warm/dry, other (minimal erythema distal sternotomy wound, NT) Neuro/Psych: no motor/sensory deficits, alert, normal mood/affect, oriented x 3 ICD10 Worksheet Patient Problems: Problems Problem Status Onset Acute blood loss anemia Acute Chronic Disease Mgmt/Transitional Care Acute S/P CABG x 3 Acute ~12/05/16 Chest pain Acute Chest pain Acute Coronary artery disease Acute GERD (gastroesophageal reflux disease) Acute Pacemaker Acute Stented coronary artery Acute
[2016-12-16 15:38] LABS: % IMMATURE GRANULYOCYTES 0.7 % (0.0-1.1); ABSOLUTE IMMATURE GRANULOCYTES 0.08 10^3/uL (0.00-0.10); ADD DIFF? NO; ADD MORPH? NO; ADD SCAN? YES; ATYPICAL LYMPHOCYTE FLAG 0 (0-99); FRAGMENT RBC FLAG 0 (0-99); HEMATOCRIT 26.3 % (40.0-51.0); HEMOGLOBIN 8.7 g/dL (13.7-17.5); LEFT SHIFT FLG 40 (0-99); LIPEMIA HEMOLYSIS FLAG 80 (0-99); MEAN CELL HEMOGLOBIN 32.2 pg (27.9-34.1); MEAN CELL HEMOGLOBIN CONCENTR. 33.1 g/dL (32.4-36.7); MEAN CELL VOLUME 97.4 fL (81.5-99.8); MEAN PLATELET VOLUME 12.2 fL (8.7-11.7); PLATELET CLUMPS FLAG 0 (0-99); PLATELET COUNT 262 10^3/uL (150-400); RED CELL DISTRIBUTION WIDTH 13.2 % (11.5-15.2)
[2016-12-16 15:55] LABS: ANION GAP 12 mEq/L (8-16); CALCIUM 8.9 mg/dL (8.5-10.4); CARBON DIOXIDE 23 mEq/l (22-31); CHLORIDE 102 mEq/L (97-110); CREATININE 0.8 mg/dL (0.7-1.3); GLOMERULAR FILTRATION RATE > 60; GLUCOSE 111 mg/dL (70-100); POTASSIUM 3.7 mEq/L (3.5-5.2); SODIUM 137 mEq/L (134-144)
[2016-12-16 16:13] LABS: SCAN NEGATIVE
[2016-12-16] MEDS ORDERED: AMOX/CLAVULANATE 500/125 MG TAB ONE (16:48)
[2016-12-16] MEDS: ATORVASTATIN CALCIUM 40 MG TAB PO SCH (16:50)
[2016-12-16] MEDS: AMOXICILLIN/CLAVULANATE POT 875/125 MG TAB PO SCH (20:40)
[2016-12-16] MEDS: ALBUTEROL HFA ANES ONLY 200 PUFFS/8.5 GM MDI IH PRN (20:52)
[2016-12-17] MEDS: ACETAMINOPHEN 325 MG TAB PO PRN ×3 (01:25→20:29)
[2016-12-17] MEDS: QUEtiapine FUMARATE 25 MG TAB PO PRN ×2 (01:26→20:31)
[2016-12-17] MEDS: ALBUTEROL HFA ANES ONLY 200 PUFFS/8.5 GM MDI IH PRN ×2 (08:10→16:09)
[2016-12-17] MEDS: BUDESONIDE/FORMOTEROL 160/4.5 60 PUFFS/MDI IH SCH ×2 (08:10→20:18)
[2016-12-17] MEDS: AMOXICILLIN/CLAVULANATE POT 875/125 MG TAB PO SCH ×2 (08:11→20:16)
[2016-12-17] MEDS: ENOXAPARIN 40 MG/0.4 ML SYR SC SCH (08:11)
[2016-12-17] MEDS: SENNOSIDES/DOCUSATE SODIUM TAB PO SCH ×2 (08:11→20:16)
[2016-12-17] MEDS: guaiFENesin 600 MG TAB.ER PO SCH ×2 (08:11→20:16)
[2016-12-17] MEDS: CITALOPRAM 20 MG TAB PO SCH (08:12)
[2016-12-17] MEDS: POTASSIUM CL 20 MEQ TAB PO SCH (08:12)
[2016-12-17] MEDS: CETIRIZINE 10 MG TAB PO SCH (08:12)
[2016-12-17] MEDS: TAMSULOSIN HCL 0.4 MG CAP PO SCH (08:12)
[2016-12-17] MEDS: MULTIVITAMINS 1 EACH TAB PO SCH (08:12)
[2016-12-17] MEDS: FUROSEMIDE 40 MG TAB PO SCH (08:13)
[2016-12-17] MEDS: CYANO/VITAMIN B12 1000 MCG TAB PO SCH (08:14)
[2016-12-17] MEDS: METOPROLOL TARTRATE 25 MG TAB PO SCH ×2 (08:14→20:17)
[2016-12-17] MEDS: CHOLECALCIFEROL VIT D3 1,000 UNITS TAB PO SCH (08:14)
[2016-12-17] MEDS: FAMOTIDINE 20 MG TAB PO SCH ×2 (08:14→20:16)
[2016-12-17] MEDS: AMIODARONE HCL 200 MG TAB PO SCH ×2 (08:14→20:16)
[2016-12-17] MEDS: ASPIRIN 81 MG CHEWABLE TAB PO SCH (08:15)
[2016-12-17 08:52] LABS: % IMMATURE GRANULYOCYTES 0.7 % (0.0-1.1); ABSOLUTE IMMATURE GRANULOCYTES 0.08 10^3/uL (0.00-0.10); ADD DIFF? NO; ADD MORPH? NO; ADD SCAN? NO; ATYPICAL LYMPHOCYTE FLAG 0 (0-99); FRAGMENT RBC FLAG 0 (0-99); HEMOGLOBIN 8.6 g/dL (13.7-17.5); LEFT SHIFT FLG 20 (0-99); LIPEMIA HEMOLYSIS FLAG 80 (0-99); MEAN CELL HEMOGLOBIN 32.3 pg (27.9-34.1); MEAN CELL HEMOGLOBIN CONCENTR. 33.1 g/dL (32.4-36.7); MEAN CELL VOLUME 97.7 fL (81.5-99.8); MEAN PLATELET VOLUME 12.2 fL (8.7-11.7); PLATELET CLUMPS FLAG 10 (0-99); PLATELET COUNT 268 10^3/uL (150-400); RED BLOOD CELL COUNT 2.66 10^6/uL (4.40-6.38); RED CELL DISTRIBUTION WIDTH 13.2 % (11.5-15.2)
[2016-12-17] MEDS: CANN-EASE 2 GM TUBE TP PRN (09:11)
--- NOTE | 2016-12-17 12:20 | SOAPPROG ---
SOAP Progress Note Assessment/Plan: Assessment: * Ischemic cardiomyopathy/CAD s/p 3v CABG, complicated by encephalopathy, debility and dysphagia. Initial FIM 77. Walked 120' FWW SBA. Impaired standing balance, easy fatigue. Min A UB dressing, shower transfer and bathing. Continue physical, speech and occupational therapy to optimize functional status and mobility -Sternal precautions x 3 weeks: no lifting >10lbs, no push/pull, no driving -Wound care: no submersion, open to air, cleanse daily, elevate right donor site when in bed -Secondary prevention: cont. ASA 81mg, statin, BB * Encephalopathy, improving. Mild - mod deficits to memory, attn, SOP. Continue ELECTRIC FREIGHT CAR OPERATOR. * Hypoxemia and FARRELL. CXR 12/16/16 with new L pleural effusion and infiltrate vs. atelectasis LLL. CBC with WBCs improved 12/17/16compared to 12/16 but still elevated; recheck tomorrow. Will treat with Augmentin 875 mg BID X 7 days. Encourage incentive spirometry. * Chills w/out fever; elevated WBCs 12/15/16. Wounds look good. UA normal . Augmentin for possible pneumonia. * Fluid status: hypotensive 12/15/16. Held furosemide, cont 2L fluid restriction. Weight down to 87 kg 12/16/16. Change furosemide from 40 mg QD to 20 mg QD starting 12/17/16; consider continuing taper towards DC. EF 70% after surgery. * Hyponatremia, mild. He reports prior episode when he was drinking too much fluid. Serum < urine osm, low urine Na 12/15/16. Possible low level of SIADH. Would expect higher urine Na with furosemide. Resolved on BMP 12/16/16. * Hypotension: held metoprolol 12/15/16. BP adequately controlled. * Paroxsymal Afib post-op- converted to paced SR, cont. Amiodarone 200BID, hole metoprolol for low BP.l No thromboprophy per card d/t JARED ligation and short duration of the arrhythmia * Post-op Dysphagia: Cardiac diet with Puree + thins to advance per ELECTRIC FREIGHT CAR OPERATOR; advanced 12/16/16 to DD2. * H/o COPD/MIGEL: oxygenating well on 2L, home CPAP qHS, will restart home inhalers and ween 02 as tolerated (no home 02) * Post-op urinary retention/BPH: resolved, cont. flomax * Post-op anemia: improving on labs 12/15/16. Prophylaxis-> cont. LMWH. GI, on ranitidine BID FULL CODE, this was discussed with pt on admit POA/friends: Svitlana Melo [phone] F/U: Dr. Mauricio Garcia (PCP) after d/c Dr. Woody (CT Surgery) on 12/24 at 10am, will need PA/LAT CXR prior to visit [place] with 23STE, no assistance available at home will need to be independent. Tentative D/C 12/24/16. Outpatient cardiac rehabilitation after D/C. 12/17/16 12:15 Subjective: No complaints. Breathing OK, no cough/dyspnea. No f/c. Objective: Vital Signs Temp Pulse Resp BP Pulse Ox 36.6 C 72 18 120/63 94 12/17/16 06:31 12/17/16 08:14 12/17/16 06:31 12/17/16 08:14 12/17/16 06:31 Laboratory Results 12/17/16 06:30 12/16/16 15:00 12/16/16 12/17/16 12/18/16 05:59 05:59 05:59 Intake Total 1965 1640 690 Output Total 1075 625 225 Balance 890 1015 465 Physical Exam - Physical Exam General Appearance: WD/WN, alert, no apparent distress Respiratory: normal breath sounds, crackles (few auscultated anterior, inspiratory), No rhonchi, No wheezing Cardiac/Chest: regular rate, rhythm, No edema, No JVD Skin: normal color, warm/dry Neuro/Psych: alert, normal mood/affect, oriented x 3, No motor weakness ICD10 Worksheet Patient Problems: Problems Problem Status Onset Acute blood loss anemia Acute Chronic Disease Mgmt/Transitional Care Acute S/P CABG x 3 Acute ~12/05/16 Chest pain Acute Chest pain Acute Coronary artery disease Acute GERD (gastroesophageal reflux disease) Acute Pacemaker Acute Stented coronary artery Acute
[2016-12-17] MEDS: ATORVASTATIN CALCIUM 40 MG TAB PO SCH (18:35)
[2016-12-18 07:34] LABS: % IMMATURE GRANULYOCYTES 0.4 % (0.0-1.1); ABSOLUTE IMMATURE GRANULOCYTES 0.04 10^3/uL (0.00-0.10); ADD DIFF? NO; ADD MORPH? NO; ADD SCAN? NO; ATYPICAL LYMPHOCYTE FLAG 0 (0-99); FRAGMENT RBC FLAG 0 (0-99); HEMATOCRIT 24.9 % (40.0-51.0); HEMOGLOBIN 8.3 g/dL (13.7-17.5); LEFT SHIFT FLG 40 (0-99); LIPEMIA HEMOLYSIS FLAG 80 (0-99); MEAN CELL HEMOGLOBIN 32.3 pg (27.9-34.1); MEAN CELL HEMOGLOBIN CONCENTR. 33.3 g/dL (32.4-36.7); MEAN CELL VOLUME 96.9 fL (81.5-99.8); MEAN PLATELET VOLUME 12.2 fL (8.7-11.7); PLATELET CLUMPS FLAG 0 (0-99); PLATELET COUNT 295 10^3/uL (150-400); RED BLOOD CELL COUNT 2.57 10^6/uL (4.40-6.38); RED CELL DISTRIBUTION WIDTH 13.2 % (11.5-15.2)
[2016-12-18] MEDS: POLYETHYLENE GLYCOL 3350 17 GM PKT PO PRN (08:33)
[2016-12-18] MEDS: AMOXICILLIN/CLAVULANATE POT 875/125 MG TAB PO SCH ×2 (09:09→20:08)
[2016-12-18] MEDS: ASPIRIN 81 MG CHEWABLE TAB PO SCH (09:13)
[2016-12-18] MEDS: CETIRIZINE 10 MG TAB PO SCH (09:13)
[2016-12-18] MEDS: CHOLECALCIFEROL VIT D3 1,000 UNITS TAB PO SCH (09:14)
[2016-12-18] MEDS: guaiFENesin 600 MG TAB.ER PO SCH ×2 (09:17→20:08)
[2016-12-18] MEDS: FUROSEMIDE 40 MG TAB PO SCH (09:18)
[2016-12-18] MEDS: CITALOPRAM 20 MG TAB PO SCH (09:19)
[2016-12-18] MEDS: CYANO/VITAMIN B12 1000 MCG TAB PO SCH (09:19)
[2016-12-18] MEDS: POTASSIUM CL 20 MEQ TAB PO SCH (09:20)
[2016-12-18] MEDS: FAMOTIDINE 20 MG TAB PO SCH (09:20)
[2016-12-18] MEDS: MULTIVITAMINS 1 EACH TAB PO SCH (09:20)
[2016-12-18] MEDS: SENNOSIDES/DOCUSATE SODIUM TAB PO SCH ×2 (09:23→20:09)
[2016-12-18] MEDS: TAMSULOSIN HCL 0.4 MG CAP PO SCH (09:24)
[2016-12-18] MEDS: ENOXAPARIN 40 MG/0.4 ML SYR SC SCH (09:37)
[2016-12-18 10:02] LABS: HEMATOCRIT 24.7 % (40.0-51.0)
--- NOTE | 2016-12-18 10:52 | SOAPPROG ---
SOAP Progress Note Assessment/Plan: Assessment: * Ischemic cardiomyopathy/CAD s/p 3v CABG, complicated by encephalopathy, debility and dysphagia. Initial FIM 77. Walked 120' FWW SBA. Impaired standing balance, easy fatigue. Min A UB dressing, shower transfer and bathing. Continue physical, speech and occupational therapy to optimize functional status and mobility -Sternal precautions x 3 weeks: no lifting >10lbs, no push/pull, no driving (through 01/04/17) -Wound care: no submersion, open to air, cleanse daily, elevate right donor site when in bed -Secondary prevention: cont. ASA 81mg, statin, BB * Encephalopathy, improving. Mild - mod deficits to memory, attn, SOP. Continue WAGE AND HOUR INVESTIGATOR. * Hypoxemia and FARRELL. CXR 12/16/16 with new L pleural effusion and infiltrate vs. atelectasis LLL. CBC with WBCs improving 12/16, 12/17 & 12/18; still elevated ; recheck tomorrow. Will treat with Augmentin 875 mg BID X 7 days. Encourage incentive spirometry. * Anemia with appropriately elevated reticulocyte count, on ASA, enoxaparin and citalopram. Hemoccult stools. Change form famotidine to pantoprazole. * Chills w/out fever; elevated WBCs 12/15/16. Wounds look good. UA normal . Augmentin for possible pneumonia. * Fluid status: hypotensive 12/15/16. Held furosemide, cont 2L fluid restriction. Weight down to 87 kg 12/16/16. Change furosemide from 40 mg QD to 20 mg QD starting 12/17/16; consider continuing taper towards DC. EF 70% after surgery. * Hyponatremia, mild. He reports prior episode when he was drinking too much fluid. Serum < urine osm, low urine Na 12/15/16. Possible low level of SIADH. Would expect higher urine Na with furosemide. Resolved on BMP 12/16/16. * Hypotension: held metoprolol 12/15/16. BP adequately controlled. * Paroxsymal Afib post-op- converted to paced SR, cont. Amiodarone 200BID, hold metoprolol for low BP. No thromboprophy per card d/t JARED ligation and short duration of the arrhythmia * Post-op Dysphagia: Cardiac diet with Puree + thins to advance per WAGE AND HOUR INVESTIGATOR; advanced 12/16/16 to DD2. * H/o COPD/MIGEL: oxygenating well on 2L, home CPAP qHS, will restart home inhalers and ween 02 as tolerated (no home 02) * Post-op urinary retention/BPH: resolved, cont. flomax * Post-op anemia: improving on labs 12/15/16. Prophylaxis-> cont. LMWH. GI, on ranitidine BID; change o pantoprazole 12/17/16. FULL CODE, this was discussed with pt on admit POA/friends: Svitlana Melo [phone] F/U: Dr. Mauricio Garcia (PCP) after d/c Dr. Woody (CT Surgery) on 12/24 at 10am, will need PA/LAT CXR prior to visit [place] with [employer], no assistance available at home will need to be independent. Tentative D/C 12/24/16. Outpatient cardiac rehabilitation after D/C. 12/18/16 10:45 Subjective: Has oc SOB. Had episode of chills yesterday, no sweats or fevers noted. Slept well. Objective: Vital Signs Temp Pulse Resp BP Pulse Ox 36.6 C 69 18 93/45 L 97 12/17/16 18:43 12/18/16 09:30 12/17/16 18:43 12/18/16 09:30 12/17/16 18:43 Laboratory Results 12/18/16 06:40 12/16/16 15:00 12/17/16 12/18/16 12/19/16 05:59 05:59 05:59 Intake Total 1640 1282 150 Output Total 625 725 200 Balance 1015 557 -50 Physical Exam - Physical Exam General Appearance: WD/WN, alert, no apparent distress Respiratory: normal breath sounds, No crackles, No rhonchi, No wheezing Cardiac/Chest: regular rate, rhythm, No edema Skin: normal color, warm/dry Neuro/Psych: no motor/sensory deficits, alert, normal mood/affect ICD10 Worksheet Patient Problems: Problems Problem Status Onset Acute blood loss anemia Acute Chronic Disease Mgmt/Transitional Care Acute S/P CABG x 3 Acute ~12/05/16 Chest pain Acute Chest pain Acute Coronary artery disease Acute GERD (gastroesophageal reflux disease) Acute Pacemaker Acute Stented coronary artery Acute
[2016-12-18] MEDS: METOPROLOL TARTRATE 25 MG TAB PO SCH ×2 (11:52→20:27)
[2016-12-18] MEDS: AMIODARONE HCL 200 MG TAB PO SCH ×2 (11:52→20:08)
[2016-12-18] MEDS: ALBUTEROL HFA ANES ONLY 200 PUFFS/8.5 GM MDI IH PRN ×2 (11:54→20:10)
[2016-12-18] MEDS: PANTOPRAZOLE SODIUM 40 MG TAB PO SCH (12:09)
[2016-12-18] MEDS: BUDESONIDE/FORMOTEROL 160/4.5 60 PUFFS/MDI IH SCH ×2 (12:10→20:27)
[2016-12-18] MEDS: SYSTANE ULTRA EYE DROPS EACHEYE PRN (16:27)
[2016-12-18] MEDS: ATORVASTATIN CALCIUM 40 MG TAB PO SCH (20:08)
[2016-12-18] MEDS: ACETAMINOPHEN 325 MG TAB PO PRN (20:09)
[2016-12-18] MEDS: QUEtiapine FUMARATE 25 MG TAB PO PRN (20:27)
[2016-12-19] MEDS: ALBUTEROL HFA ANES ONLY 200 PUFFS/8.5 GM MDI IH PRN (09:39)
[2016-12-19] MEDS: POLYETHYLENE GLYCOL 3350 17 GM PKT PO PRN (09:39)
[2016-12-19] MEDS: AMIODARONE HCL 200 MG TAB PO SCH ×2 (09:41→20:14)
[2016-12-19] MEDS: AMOXICILLIN/CLAVULANATE POT 875/125 MG TAB PO SCH ×2 (09:41→20:14)
[2016-12-19] MEDS: ASPIRIN 81 MG CHEWABLE TAB PO SCH (09:42)
[2016-12-19] MEDS: CETIRIZINE 10 MG TAB PO SCH (09:43)
[2016-12-19] MEDS: CHOLECALCIFEROL VIT D3 1,000 UNITS TAB PO SCH (09:48)
[2016-12-19] MEDS: CITALOPRAM 20 MG TAB PO SCH (09:48)
[2016-12-19] MEDS: CYANO/VITAMIN B12 1000 MCG TAB PO SCH (09:49)
[2016-12-19] MEDS: ENOXAPARIN 40 MG/0.4 ML SYR SC SCH (09:50)
[2016-12-19] MEDS: guaiFENesin 600 MG TAB.ER PO SCH ×2 (09:50→20:13)
[2016-12-19] MEDS: FUROSEMIDE 40 MG TAB PO SCH (09:50)
[2016-12-19] MEDS: BUDESONIDE/FORMOTEROL 160/4.5 60 PUFFS/MDI IH SCH ×2 (09:52→20:26)
[2016-12-19] MEDS: MULTIVITAMINS 1 EACH TAB PO SCH (09:54)
[2016-12-19] MEDS: PANTOPRAZOLE SODIUM 40 MG TAB PO SCH (09:57)
[2016-12-19] MEDS: POTASSIUM CL 20 MEQ TAB PO SCH (10:00)
[2016-12-19] MEDS: SENNOSIDES/DOCUSATE SODIUM TAB PO SCH ×2 (10:00→20:13)
[2016-12-19] MEDS: TAMSULOSIN HCL 0.4 MG CAP PO SCH (10:01)
--- NOTE | 2016-12-19 13:57 | SOAPPROG ---
SOAP Progress Note Assessment/Plan: Assessment: * Ischemic cardiomyopathy/CAD s/p 3v CABG, complicated by encephalopathy, debility and dysphagia. Initial FIM 77. Walked 120' FWW SBA. Impaired standing balance, easy fatigue. Min A UB dressing, shower transfer and bathing. Continue physical, speech and occupational therapy to optimize functional status and mobility -Sternal precautions x 3 weeks: no lifting >10lbs, no push/pull, no driving (through 01/04/17) -Wound care: no submersion, open to air, cleanse daily, elevate right donor site when in bed -Secondary prevention: cont. ASA 81mg, statin, BB * Encephalopathy, improving. Mild - mod deficits to memory, attn, SOP. Continue FOOD AND DRUG RESEARCH SCIENTIST. * Hypoxemia and FARRELL. CXR 12/16/16 with new L pleural effusion and infiltrate vs. atelectasis LLL. CBC with WBCs improving 12/16, 12/17 & 12/18. Augmentin 875 mg BID X 7 days through 12/23/16. Oxygenation improving. Encourage incentive spirometry. * Anemia with appropriately elevated reticulocyte count, on ASA, enoxaparin and citalopram. Hemoccult stools. Change form famotidine to pantoprazole. * Chills w/out fever; elevated WBCs 12/15/16. Wounds look good. UA normal . * Fluid status: hypotensive 12/15/16. Held furosemide, cont 2L fluid restriction. Weight down to 87 kg 12/16/16. Change furosemide from 40 mg QD to 20 mg QD starting 12/17/16; consider continuing taper towards DC. EF 70% after surgery. * Hyponatremia, mild. He reports prior episode when he was drinking too much fluid. Serum < urine osm, low urine Na 12/15/16. Possible low level of SIADH. Would expect higher urine Na with furosemide. Resolved on BMP 12/16/16. * Hypotension: held metoprolol 12/15/16. BP adequately controlled. * Paroxsymal Afib post-op- converted to paced SR, cont. Amiodarone 200BID, hold metoprolol for low BP. No thromboprophy per card d/t JARED ligation and short duration of the arrhythmia * Post-op Dysphagia: Cardiac diet with Puree + thins to advance per FOOD AND DRUG RESEARCH SCIENTIST; advanced 12/16/16 to DD2. * H/o COPD/MIGEL: oxygenating well on 2L, home CPAP qHS, will restart home inhalers and ween 02 as tolerated (no home 02) * Post-op urinary retention/BPH: resolved, cont. flomax * Post-op anemia: improving on labs 12/15/16. Prophylaxis-> cont. LMWH. GI, on ranitidine BID; change to pantoprazole . FULL CODE, this was discussed with pt on admit POA/friends: Zeeshan+Deneen Melo [phone] F/U: Dr. Mauricio Garcia (PCP) after d/c Dr. Woody (CT Surgery) on 12/24 at 10am, will need PA/LAT CXR prior to visit [place] with [facility], no assistance available at home will need to be independent. Tentative D/C 12/24/16. Outpatient cardiac rehabilitation after D/C. 12/19/16 13:54 Subjective: Gets winded with activity. Rare sputum with cough. No orthopnea. No f/c. Objective: Vital Signs Temp Pulse Resp BP Pulse Ox 36.7 C 70 17 115/86 H 90 L 12/19/16 07:14 12/19/16 07:14 12/19/16 07:14 12/19/16 07:14 12/19/16 07:14 Laboratory Results 12/18/16 06:40 12/16/16 15:00 12/18/16 12/19/16 12/20/16 05:59 05:59 05:59 Intake Total 1282 1666 180 Output Total 725 1000 Balance 557 666 180 Physical Exam - Physical Exam General Appearance: WD/WN, alert, no apparent distress, obese Respiratory: normal breath sounds, No crackles, No rhonchi, No wheezing Cardiac/Chest: regular rate, rhythm, No edema Skin: normal color, warm/dry Neuro/Psych: no motor/sensory deficits, alert, normal mood/affect, oriented x 3 ICD10 Worksheet Patient Problems: Problems Problem Status Onset Acute blood loss anemia Acute Chronic Disease Mgmt/Transitional Care Acute S/P CABG x 3 Acute ~12/05/16 Chest pain Acute Chest pain Acute Coronary artery disease Acute GERD (gastroesophageal reflux disease) Acute Pacemaker Acute Stented coronary artery Acute
[2016-12-19] MEDS: METOPROLOL TARTRATE 25 MG TAB PO SCH ×2 (15:03→20:22)
[2016-12-19] MEDS: ATORVASTATIN CALCIUM 40 MG TAB PO SCH (19:26)
[2016-12-19] MEDS: QUEtiapine FUMARATE 25 MG TAB PO PRN (20:27)
[2016-12-20] MEDS: SYSTANE ULTRA EYE DROPS EACHEYE PRN (08:53)
[2016-12-20] MEDS: METOPROLOL TARTRATE 25 MG TAB PO SCH ×2 (08:54→20:38)
[2016-12-20] MEDS: MULTIVITAMINS 1 EACH TAB PO SCH (08:56)
[2016-12-20] MEDS: CETIRIZINE 10 MG TAB PO SCH (08:56)
[2016-12-20] MEDS: FUROSEMIDE 40 MG TAB PO SCH (08:56)
[2016-12-20] MEDS: POTASSIUM CL 20 MEQ TAB PO SCH (08:56)
[2016-12-20] MEDS: PANTOPRAZOLE SODIUM 40 MG TAB PO SCH (08:57)
[2016-12-20] MEDS: ASPIRIN 81 MG CHEWABLE TAB PO SCH (08:57)
[2016-12-20] MEDS: CITALOPRAM 20 MG TAB PO SCH (08:57)
[2016-12-20] MEDS: AMIODARONE HCL 200 MG TAB PO SCH ×2 (08:57→20:37)
[2016-12-20] MEDS: TAMSULOSIN HCL 0.4 MG CAP PO SCH (08:57)
[2016-12-20] MEDS: CHOLECALCIFEROL VIT D3 1,000 UNITS TAB PO SCH (08:57)
[2016-12-20] MEDS: CYANO/VITAMIN B12 1000 MCG TAB PO SCH (08:57)
[2016-12-20] MEDS: ENOXAPARIN 40 MG/0.4 ML SYR SC SCH (08:58)
[2016-12-20] MEDS: guaiFENesin 600 MG TAB.ER PO SCH ×2 (08:58→20:33)
[2016-12-20] MEDS: AMOXICILLIN/CLAVULANATE POT 875/125 MG TAB PO SCH ×2 (08:58→20:40)
[2016-12-20] MEDS: ALBUTEROL HFA ANES ONLY 200 PUFFS/8.5 GM MDI IH PRN (08:59)
[2016-12-20] MEDS: SENNOSIDES/DOCUSATE SODIUM TAB PO SCH ×2 (08:59→20:39)
[2016-12-20] MEDS: BUDESONIDE/FORMOTEROL 160/4.5 60 PUFFS/MDI IH SCH ×2 (09:01→21:57)
--- NOTE | 2016-12-20 10:06 | SOAPPROG ---
SOAP Progress Note Assessment/Plan: Assessment: Assessment: * Ischemic cardiomyopathy/CAD s/p 3v CABG, complicated by encephalopathy, debility and dysphagia. Initial FIM 77. Walked 120' FWW SBA. Impaired standing balance, easy fatigue. Min A UB dressing, shower transfer and bathing. Continue physical, speech and occupational therapy to optimize functional status and mobility -Sternal precautions x 3 weeks: no lifting >10lbs, no push/pull, no driving (through 01/04/17) -Wound care: no submersion, open to air, cleanse daily, elevate right donor site when in bed -Secondary prevention: cont. ASA 81mg, statin, BB * Encephalopathy, improving. Mild - mod deficits to memory, attn, SOP. Continue ESCALATOR SERVICE MECHANIC. * Hypoxemia and FARRELL. CRACKLES LEFT LOWER LUNG FILED THIS AM. CXR 12/16/16 with new L pleural effusion and infiltrate vs. atelectasis LLL. CBC with WBCs improving 12/16, 12/17 & 12/18. Augmentin 875 mg BID X 7 days through 12/23/16. Oxygenation improving. Encourage incentive spirometry--ADVISED PATIENT 10 PUFFS PER HOUR * Anemia with appropriately elevated reticulocyte count, on ASA, enoxaparin and citalopram. Hemoccult stools. Change form famotidine to pantoprazole. H/H FROM 12/18 8.3/24.9 * Chills w/out fever; elevated WBCs 12/15/16. Wounds look good. UA normal . * Fluid status: hypotensive 12/15/16. Held furosemide, cont 2L fluid restriction. Weight down to 87 kg 12/16/16. Change furosemide from 40 mg QD to 20 mg QD starting 12/17/16; consider continuing taper towards DC. EF 70% after surgery. * Hyponatremia, mild. He reports prior episode when he was drinking too much fluid. Serum < urine osm, low urine Na 12/15/16. Possible low level of SIADH. Would expect higher urine Na with furosemide. Resolved on BMP 12/16/16. * Hypotension:BP THIS AM 112/70. CONTINUE TO HOLD METOPROLOL FOR NOW * Paroxsymal Afib post-op- converted to paced SR, cont. Amiodarone 200BID, hold metoprolol for low BP. No thromboprophy per card d/t JARED ligation and short duration of the arrhythmia * Post-op Dysphagia: Cardiac diet with Puree + thins to advance per ESCALATOR SERVICE MECHANIC; advanced 12/16/16 to DD2. * H/o COPD/MIGEL: oxygenating well on 2L, home CPAP qHS, will restart home inhalers and ween 02 as tolerated (no home 02) * Post-op urinary retention/BPH: resolved, cont. flomax * Post-op anemia: improving on labs 12/15/16. Prophylaxis-> cont. LMWH. GI, on ranitidine BID; change to pantoprazole . FULL CODE, this was discussed with pt on admit Plan: 12/20/16 10:06 Subjective: HE REPORTS RIGHT PECTORAL PAIN. HE DENIES SOB,ANGINA LIKE SXS OR DIZINESS. Objective: Vital Signs Temp Pulse Resp BP Pulse Ox 36.7 C 70 16 112/70 94 12/20/16 07:49 12/20/16 08:54 12/20/16 07:49 12/20/16 08:54 12/20/16 07:49 Laboratory Results 12/18/16 06:40 12/16/16 15:00 12/19/16 12/20/16 12/21/16 05:59 05:59 05:59 Intake Total 1666 1165 Output Total 1000 1370 Balance 666 -205 Physical Exam - Physical Exam General Appearance: WD/WN, alert, no apparent distress Neck: non-tender, full range of motion Respiratory: crackles (LEFT BASE), pain on movement (FROM STERNAL INCISION.), No respiratory distress, No accessory muscle use Cardiac/Chest: edema (TRACE PRETIBIAL), No JVD Abdomen: normal bowel sounds, non-tender, soft Extremities: No Julián's sign Neuro/Psych: no motor/sensory deficits (NO FOCAL MOTOR DEFICITS WITH MMT WHILE SEATED IN W/C THIS AM.), cognition abnormalities ICD10 Worksheet Patient Problems: Problems Problem Status Onset Acute blood loss anemia Acute Chronic Disease Mgmt/Transitional Care Acute S/P CABG x 3 Acute ~12/05/16 Chest pain Acute Chest pain Acute Coronary artery disease Acute GERD (gastroesophageal reflux disease) Acute Pacemaker Acute Stented coronary artery Acute
[2016-12-20] MEDS: ATORVASTATIN CALCIUM 40 MG TAB PO SCH (17:07)
[2016-12-20] MEDS: QUEtiapine FUMARATE 25 MG TAB PO PRN (20:46)
--- NOTE | 2016-12-21 10:11 | SOAPPROG ---
SOAP Progress Note Assessment/Plan: Assessment: Assessment: * Ischemic cardiomyopathy/CAD s/p 3v CABG, complicated by encephalopathy, debility and dysphagia. Initial FIM 77. Walked 120' FWW SBA. Impaired standing balance, easy fatigue. Min A UB dressing, shower transfer and bathing. Continue physical, speech and occupational therapy to optimize functional status and mobility -Sternal precautions x 3 weeks: no lifting >10lbs, no push/pull, no driving (through 01/04/17) -Wound care: no submersion, open to air, cleanse daily, elevate right donor site when in bed -Secondary prevention: cont. ASA 81mg, statin, BB * Encephalopathy, improving. Mild - mod deficits to memory, attn, SOP. Continue WATER POLLUTION CONTROL TECHNICIAN. * Hypoxemia and FARRELL. CRACKLES LEFT LOWER LUNG FILED THIS AM. CXR 12/16/16 with new L pleural effusion and infiltrate vs. atelectasis LLL. CBC with WBCs improving 12/16, 12/17 & 12/18. Augmentin 875 mg BID X 7 days through 12/23/16. Oxygenation improving. Encourage incentive spirometry--ADVISED PATIENT 10 PUFFS PER HOUR * Anemia with appropriately elevated reticulocyte count, on ASA, enoxaparin and citalopram. Hemoccult stools. Change form famotidine to pantoprazole. H/H FROM 12/18 8.3/24.9 * Chills w/out fever; elevated WBCs 12/15/16. Wounds look good. UA normal . * Fluid status: hypotensive 12/15/16. Held furosemide, cont 2L fluid restriction. Weight down to 87 kg 12/16/16. Change furosemide from 40 mg QD to 20 mg QD starting 12/17/16; consider continuing taper towards DC. EF 70% after surgery. * Hyponatremia, mild. He reports prior episode when he was drinking too much fluid. Serum < urine osm, low urine Na 12/15/16. Possible low level of SIADH. Would expect higher urine Na with furosemide. Resolved on BMP 12/16/16. * Hypotension: Resolved. BP THIS AM 125/68. He is taking Metoprolol 12.5 BID * Paroxsymal Afib post-op- converted to paced SR, cont. Amiodarone 200BID, hold metoprolol for low BP. No thromboprophy per card d/t JARED ligation and short duration of the arrhythmia * Post-op Dysphagia: Cardiac diet with Puree + thins to advance per WATER POLLUTION CONTROL TECHNICIAN; advanced 12/16/16 to DD2. * H/o COPD/MIGEL: oxygenating well on 2L, home CPAP qHS, will restart home inhalers and ween 02 as tolerated (no home 02) * Post-op urinary retention/BPH: resolved, cont. flomax * Post-op anemia: improving on labs 12/15/16. Prophylaxis-> cont. LMWH. GI, on ranitidine BID; change to pantoprazole . FULL CODE, this was discussed with pt on admit Plan: 12/20/16 10:06 12/21/16 10:13 Subjective: He c/o mild SOB while seated in wheelchair. Nursing reports he continues on Metoprolol 12.5 BID. Objective: Vital Signs Temp Pulse Resp BP Pulse Ox 36.9 C 70 20 125/68 H 90 L 12/21/16 05:59 12/21/16 05:59 12/21/16 05:59 12/21/16 05:59 12/21/16 05:59 Laboratory Results 12/18/16 06:40 12/16/16 15:00 12/20/16 12/21/16 12/22/16 05:59 05:59 05:59 Intake Total 1165 1420 236 Output Total 1370 1350 Balance -205 70 236 Physical Exam - Physical Exam General Appearance: WD/WN, alert Neck: non-tender, supple, normal inspection Respiratory: crackles (LEFT LUNG FIELD. NASAL CANNULA WERE NOT IN PLACE), No stridor, No wheezing Cardiac/Chest: No edema, No gallop, No JVD Abdomen: non-tender, soft Skin: warm/dry (sternal incision healing well) Extremities: No swelling, No Julián's sign Neuro/Psych: alert, oriented x 3, motor weakness (mild, all four extremities) ICD10 Worksheet Patient Problems: Problems Problem Status Onset Acute blood loss anemia Acute Chronic Disease Mgmt/Transitional Care Acute S/P CABG x 3 Acute ~12/05/16 Chest pain Acute Chest pain Acute Coronary artery disease Acute GERD (gastroesophageal reflux disease) Acute Pacemaker Acute Stented coronary artery Acute
[2016-12-21] MEDS: CYANO/VITAMIN B12 1000 MCG TAB PO SCH (10:12)
[2016-12-21] MEDS: ASPIRIN 81 MG CHEWABLE TAB PO SCH (10:13)
[2016-12-21] MEDS: MULTIVITAMINS 1 EACH TAB PO SCH (10:13)
[2016-12-21] MEDS: POTASSIUM CL 20 MEQ TAB PO SCH (10:13)
[2016-12-21] MEDS: AMOXICILLIN/CLAVULANATE POT 875/125 MG TAB PO SCH ×2 (10:13→20:16)
[2016-12-21] MEDS: PANTOPRAZOLE SODIUM 40 MG TAB PO SCH (10:13)
[2016-12-21] MEDS: CHOLECALCIFEROL VIT D3 1,000 UNITS TAB PO SCH (10:13)
[2016-12-21] MEDS: SENNOSIDES/DOCUSATE SODIUM TAB PO SCH ×2 (10:13→20:17)
[2016-12-21] MEDS: guaiFENesin 600 MG TAB.ER PO SCH ×2 (10:14→20:16)
[2016-12-21] MEDS: CITALOPRAM 20 MG TAB PO SCH (10:14)
[2016-12-21] MEDS: AMIODARONE HCL 200 MG TAB PO SCH ×2 (10:14→20:17)
[2016-12-21] MEDS: ENOXAPARIN 40 MG/0.4 ML SYR SC SCH (10:14)
[2016-12-21] MEDS: FUROSEMIDE 40 MG TAB PO SCH (10:14)
[2016-12-21] MEDS: TAMSULOSIN HCL 0.4 MG CAP PO SCH (10:14)
[2016-12-21] MEDS: CETIRIZINE 10 MG TAB PO SCH (10:14)
[2016-12-21] MEDS: BUDESONIDE/FORMOTEROL 160/4.5 60 PUFFS/MDI IH SCH ×2 (10:18→20:18)
[2016-12-21] MEDS: ALBUTEROL HFA ANES ONLY 200 PUFFS/8.5 GM MDI IH PRN (10:18)
[2016-12-21] MEDS: METOPROLOL TARTRATE 25 MG TAB PO SCH ×2 (12:01→20:56)
[2016-12-21] MEDS: IPRATROPIUM 0.06% NASAL SPRAY EACHNARE PRN ×2 (14:38→17:44)
[2016-12-21] MEDS: ACETAMINOPHEN 325 MG TAB PO PRN (14:43)
[2016-12-21] MEDS: ATORVASTATIN CALCIUM 40 MG TAB PO SCH (17:22)
[2016-12-22] MEDS: ALBUTEROL HFA ANES ONLY 200 PUFFS/8.5 GM MDI IH PRN (07:36)
[2016-12-22] MEDS: BUDESONIDE/FORMOTEROL 160/4.5 60 PUFFS/MDI IH SCH ×2 (07:38→20:03)
[2016-12-22] MEDS: IPRATROPIUM 0.06% NASAL SPRAY EACHNARE PRN (08:29)
[2016-12-22] MEDS: ASPIRIN 81 MG CHEWABLE TAB PO SCH (08:31)
[2016-12-22] MEDS: CHOLECALCIFEROL VIT D3 1,000 UNITS TAB PO SCH (08:31)
[2016-12-22] MEDS: TAMSULOSIN HCL 0.4 MG CAP PO SCH (08:31)
[2016-12-22] MEDS: PANTOPRAZOLE SODIUM 40 MG TAB PO SCH (08:32)
[2016-12-22] MEDS: AMOXICILLIN/CLAVULANATE POT 875/125 MG TAB PO SCH ×2 (08:32→20:02)
[2016-12-22] MEDS: CETIRIZINE 10 MG TAB PO SCH (08:34)
[2016-12-22] MEDS: AMIODARONE HCL 200 MG TAB PO SCH ×2 (08:34→20:03)
[2016-12-22] MEDS: CITALOPRAM 20 MG TAB PO SCH (08:34)
[2016-12-22] MEDS: guaiFENesin 600 MG TAB.ER PO SCH ×2 (08:34→20:02)
[2016-12-22] MEDS: MULTIVITAMINS 1 EACH TAB PO SCH (08:34)
[2016-12-22] MEDS: FUROSEMIDE 20 MG TAB PO SCH (08:35)
[2016-12-22] MEDS: CYANO/VITAMIN B12 1000 MCG TAB PO SCH (08:35)
[2016-12-22] MEDS: POTASSIUM CL 20 MEQ TAB PO SCH (08:35)
[2016-12-22] MEDS: ENOXAPARIN 40 MG/0.4 ML SYR SC SCH (08:36)
[2016-12-22] MEDS: SENNOSIDES/DOCUSATE SODIUM TAB PO SCH ×2 (08:40→20:04)
[2016-12-22] MEDS: METOPROLOL TARTRATE 25 MG TAB PO SCH ×2 (08:43→20:02)
--- NOTE | 2016-12-22 15:52 | SOAPPROG ---
SOAP Progress Note Assessment/Plan: Assessment: * Ischemic cardiomyopathy/CAD s/p 3v CABG, complicated by encephalopathy, debility and dysphagia. Initial FIM 78; improved to 90 as of 12/22/16. Walked 400' FWW SBA. Did 9 stairs, 1 rail. Bathing min A, tub t'blanca CGA; o/w S for ADLs. Easy fatigue. Min A UB dressing, shower transfer and bathing. Continue physical, speech and occupational therapy to optimize functional status and mobility -Sternal precautions x 3 weeks: no lifting >10lbs, no push/pull, no driving (through 01/04/17) -Wound care: no submersion, open to air, cleanse daily, elevate right donor site when in bed -Secondary prevention: cont. ASA 81mg, statin, BB * Encephalopathy, improving. Mild - mod deficits to memory, attn, SOP. Continue HYDRAULIC HAMMER OPERATOR. * Hypoxemia and FARRELL. CXR 12/16/16 with new L pleural effusion and infiltrate vs. atelectasis LLL. CBC with WBCs improving 12/16, 12/17 & 12/18. Augmentin 875 mg BID X 7 days through 12/23/16. 12/22/16 continues hypoxic; repeat CXR with new R effusion and persisting L effusion + atelectasis. Encourage incentive spirometry. D/W Padma at Dr. Woody's office: will arrange for thoracentesis either 12/24/16 after follow-up visit with Dr. Woody or the next day. * Anemia with appropriately elevated reticulocyte count, on ASA, enoxaparin and citalopram. Hemoccult stools. Change form famotidine to pantoprazole. * Chills w/out fever; elevated WBCs 12/15/16. Wounds look good. UA normal . * Fluid status: hypotensive 12/15/16. Held furosemide, cont 2L fluid restriction. Weight down to 87 kg 12/16/16. Change furosemide from 40 mg QD to 20 mg QD starting 12/17/16; consider continuing taper towards DC. EF 70% after surgery. * Hyponatremia, mild. He reports prior episode when he was drinking too much fluid. Serum < urine osm, low urine Na 12/15/16. Possible low level of SIADH. Would expect higher urine Na with furosemide. Resolved on BMP 12/16/16. * Hypotension: held metoprolol 12/15/16. BP adequately controlled. * Paroxsymal Afib post-op- converted to paced SR, cont. Amiodarone 200BID, hold metoprolol for low BP. No thromboprophy per card d/t JARED ligation and short duration of the arrhythmia * Post-op Dysphagia: Cardiac diet with Puree + thins to advance per HYDRAULIC HAMMER OPERATOR; advanced 12/16/16 to DD2. * H/o COPD/MIGEL: oxygenating well on 2L, home CPAP qHS, will restart home inhalers and ween 02 as tolerated (no home 02) * Post-op urinary retention/BPH: resolved, cont. flomax * Post-op anemia: improving on labs 12/15/16. Prophylaxis-> cont. LMWH. GI, on ranitidine BID; change to pantoprazole . FULL CODE, this was discussed with pt on admit POA/friends: Zeeshan+Deneen Modilow [phone] F/U: Dr. Mauricio Garcia (PCP) after d/c Dr. Woody (CT Surgery) on 12/24 at 10am, will need PA/LAT CXR prior to visit Attended staffing, 15 min. D/W case mgmt, nursing, pharmacy, retirement actuary, PT, OT , HYDRAULIC HAMMER OPERATOR. [place] with [facility], no assistance available at home will need to be independent. Tentative D/C . Outpatient cardiac rehabilitation after D /C. 12/22/16 15:42 Subjective: Occ cough w/out sputum. Has chills, no fevers or sweats. continues hypoxic; failed trial of RA today. Objective: Vital Signs Temp Pulse Resp BP Pulse Ox 36.5 C 69 20 106/62 98 12/22/16 06:04 12/22/16 08:43 12/22/16 09:30 12/22/16 08:43 12/22/16 13:36 Laboratory Results 12/18/16 06:40 12/16/16 15:00 12/21/16 12/22/16 12/23/16 05:59 05:59 05:59 Intake Total 1420 1152 796 Output Total 1350 1250 Balance 70 -98 796 - Time Spent With Patient Time Spent With Patient: Greater than 35 minutes floor time today, including more than 50% of time in coordination of care during staffing, and counseling patient. Physical Exam - Physical Exam General Appearance: WD/WN, alert, no apparent distress Respiratory: normal breath sounds, crackles (LLL), No rhonchi, No wheezing Cardiac/Chest: regular rate, rhythm, No edema Skin: normal color, warm/dry Neuro/Psych: no motor/sensory deficits, alert, normal mood/affect, oriented x 3 ICD10 Worksheet Patient Problems: Problems Problem Status Onset Acute blood loss anemia Acute Chest pain Acute Chest pain Acute Chronic Disease Mgmt/Transitional Care Acute Coronary artery disease Acute GERD (gastroesophageal reflux disease) Acute Pacemaker Acute S/P CABG x 3 Acute ~12/05/16 Stented coronary artery Acute
[2016-12-22] MEDS: ATORVASTATIN CALCIUM 40 MG TAB PO SCH (17:09)
[2016-12-22] MEDS: QUEtiapine FUMARATE 25 MG TAB PO PRN (21:13)
[2016-12-23] MEDS: METOPROLOL TARTRATE 25 MG TAB PO SCH ×2 (08:07→19:54)
[2016-12-23] MEDS: AMOXICILLIN/CLAVULANATE POT 875/125 MG TAB PO SCH ×2 (08:11→19:54)
[2016-12-23] MEDS: POTASSIUM CL 20 MEQ TAB PO SCH (08:11)
[2016-12-23] MEDS: PANTOPRAZOLE SODIUM 40 MG TAB PO SCH (08:11)
[2016-12-23] MEDS: AMIODARONE HCL 200 MG TAB PO SCH ×2 (08:11→19:54)
[2016-12-23] MEDS: CETIRIZINE 10 MG TAB PO SCH (08:11)
[2016-12-23] MEDS: CHOLECALCIFEROL VIT D3 1,000 UNITS TAB PO SCH (08:12)
[2016-12-23] MEDS: ASPIRIN 81 MG CHEWABLE TAB PO SCH (08:12)
[2016-12-23] MEDS: TAMSULOSIN HCL 0.4 MG CAP PO SCH (08:12)
[2016-12-23] MEDS: SENNOSIDES/DOCUSATE SODIUM TAB PO SCH ×2 (08:12→19:55)
[2016-12-23] MEDS: guaiFENesin 600 MG TAB.ER PO SCH ×2 (08:12→19:54)
[2016-12-23] MEDS: CYANO/VITAMIN B12 1000 MCG TAB PO SCH (08:12)
[2016-12-23] MEDS: CITALOPRAM 20 MG TAB PO SCH (08:13)
[2016-12-23] MEDS: FUROSEMIDE 20 MG TAB PO SCH (08:13)
[2016-12-23] MEDS: MULTIVITAMINS 1 EACH TAB PO SCH (08:14)
[2016-12-23] MEDS: ALBUTEROL HFA ANES ONLY 200 PUFFS/8.5 GM MDI IH PRN (08:53)
[2016-12-23] MEDS: BUDESONIDE/FORMOTEROL 160/4.5 60 PUFFS/MDI IH SCH ×2 (08:54→19:55)
[2016-12-23] MEDS: ACETAMINOPHEN 325 MG TAB PO PRN (13:12)
[2016-12-23] MEDS: IPRATROPIUM 0.06% NASAL SPRAY EACHNARE PRN ×2 (13:13→20:04)
--- NOTE | 2016-12-23 15:21 | SOAPPROG ---
SOAP Progress Note Assessment/Plan: Assessment: * Ischemic cardiomyopathy/CAD s/p 3v CABG, complicated by encephalopathy, debility and dysphagia. Initial FIM 78; improved to 90 as of 12/22/16. Walked 400' FWW SBA. Did 9 stairs, 1 rail. Bathing min A, tub t'blanca CGA; o/w S for ADLs. Easy fatigue. Min A UB dressing, shower transfer and bathing. Continue physical, speech and occupational therapy to optimize functional status and mobility -Sternal precautions x 3 weeks: no lifting >10lbs, no push/pull, no driving (through 01/04/17) -Wound care: no submersion, open to air, cleanse daily, elevate right donor site when in bed -Secondary prevention: cont. ASA 81mg, statin, BB * Encephalopathy, improving. Mild - mod deficits to memory, attn, SOP. Continue CARTRIDGE GAUGER. * Hypoxemia and FARRELL. CXR 12/16/16 with new L pleural effusion and infiltrate vs. atelectasis LLL. CBC with WBCs improving 12/16, 12/17 & 12/18. Augmentin 875 mg BID X 7 days through 12/23/16. 12/22/16 continues hypoxic; repeat CXR with new R effusion and persisting L effusion + atelectasis. Encourage incentive spirometry. D/W Padma at Dr. Woody's office on 12/22/16: will arrange for thoracentesis either 12/25/16. * Anemia with appropriately elevated reticulocyte count, on ASA, enoxaparin and citalopram. Hemoccult stools neg X 3. Change from famotidine to pantoprazole. Repeat CBC 12/24/16. * Fluid status: hypotensive 12/15/16. Held furosemide, cont 2L fluid restriction. Weight down to 87 kg 12/16/16. Change furosemide from 40 mg QD to 20 mg QD starting 12/17/16; consider continuing taper towards DC. EF 70% after surgery. * Post-op urinary retention/BPH: resolved, cont. flomax * Post-op anemia: improving on labs 12/15/16. Chronic/stable issues: * Chills w/out fever; elevated WBCs 12/15/16. Wounds look good. UA normal . * Hyponatremia, mild. He reports prior episode when he was drinking too much fluid. Serum < urine osm, low urine Na 12/15/16. Possible low level of SIADH. Would expect higher urine Na with furosemide. Resolved on BMP 12/16/16. * Hypotension: held metoprolol 12/15/16. BP adequately controlled. * Paroxsymal Afib post-op- converted to paced SR, cont. Amiodarone 200BID, hold metoprolol for low BP. No thromboprophy per card d/t JARED ligation and short duration of the arrhythmia * Post-op Dysphagia: resolved, advanced to regular texture, thin liquids. * H/o COPD/MIGEL: oxygenating well on 2L, home CPAP qHS, will restart home inhalers and ween 02 as tolerated (no home 02) * Prophylaxis-> cont. LMWH. GI, on ranitidine BID; change to pantoprazole . POA/friends: Zeeshan+Deneen Melo [phone] F/U: Dr. Mauricio Garcia (PCP) after d/c Dr. Woody (CT Surgery) on 12/24 at 10am, will need PA/LAT CXR prior to visit [place] with [facility], no assistance available at home will need to be independent. Tentative D/C . Outpatient cardiac rehabilitation after D/C. 12/23/16 15:16 Subjective: No complaints. Sleeping well. No cough or dyspnea, F/C. Objective: Vital Signs Temp Pulse Resp BP Pulse Ox 36.9 C 69 16 101/50 L 91 L 12/23/16 08:00 12/23/16 08:07 12/23/16 08:00 12/23/16 08:07 12/23/16 08:00 Laboratory Results 12/18/16 06:40 12/16/16 15:00 12/22/16 12/23/16 12/24/16 05:59 05:59 05:59 Intake Total 1152 1522 714 Output Total 1250 1175 Balance -98 347 714 Physical Exam - Physical Exam General Appearance: WD/WN, alert, no apparent distress Respiratory: normal breath sounds, decreased breath sounds (LLL), No crackles, No rhonchi, No wheezing Cardiac/Chest: regular rate, rhythm, No edema, No JVD Skin: normal color, warm/dry Neuro/Psych: no motor/sensory deficits, alert, normal mood/affect, oriented x 3 , other (Observed descending stairs step-to pattern, PT managing O2, using 1 rail.) ICD10 Worksheet Patient Problems: Problems Problem Status Onset Acute blood loss anemia Acute Chronic Disease Mgmt/Transitional Care Acute S/P CABG x 3 Acute ~12/05/16 Chest pain Acute Chest pain Acute Coronary artery disease Acute GERD (gastroesophageal reflux disease) Acute Pacemaker Acute Stented coronary artery Acute
[2016-12-23] MEDS: ATORVASTATIN CALCIUM 40 MG TAB PO SCH (18:43)
[2016-12-24 07:36] LABS: HEMATOCRIT 27.8 % (40.0-51.0); HEMOGLOBIN 9.2 g/dL (13.7-17.5); MEAN CELL HEMOGLOBIN 31.6 pg (27.9-34.1); MEAN CELL HEMOGLOBIN CONCENTR. 33.1 g/dL (32.4-36.7); MEAN CELL VOLUME 95.5 fL (81.5-99.8); RED BLOOD CELL COUNT 2.91 10^6/uL (4.40-6.38); RED CELL DISTRIBUTION WIDTH 12.8 % (11.5-15.2)
[2016-12-24 07:46] LABS: APTT 31.9 SEC (23.0-38.0); INR 1.37 (0.83-1.16); PROTIME(PATIENT) 16.9 SEC (12.0-15.0)
[2016-12-24] MEDS: TAMSULOSIN HCL 0.4 MG CAP PO SCH (08:29)
[2016-12-24] MEDS: PANTOPRAZOLE SODIUM 40 MG TAB PO SCH (08:29)
[2016-12-24] MEDS: CHOLECALCIFEROL VIT D3 1,000 UNITS TAB PO SCH (08:29)
[2016-12-24] MEDS: FUROSEMIDE 20 MG TAB PO SCH (08:29)
[2016-12-24] MEDS: guaiFENesin 600 MG TAB.ER PO SCH ×2 (08:29→20:10)
[2016-12-24] MEDS: MULTIVITAMINS 1 EACH TAB PO SCH (08:29)
[2016-12-24] MEDS: POTASSIUM CL 20 MEQ TAB PO SCH (08:30)
[2016-12-24] MEDS: ASPIRIN 81 MG CHEWABLE TAB PO SCH (08:30)
[2016-12-24] MEDS: AMIODARONE HCL 200 MG TAB PO SCH (08:30)
[2016-12-24] MEDS: SENNOSIDES/DOCUSATE SODIUM TAB PO SCH ×2 (08:30→20:10)
[2016-12-24] MEDS: CETIRIZINE 10 MG TAB PO SCH (08:30)
[2016-12-24] MEDS: CYANO/VITAMIN B12 1000 MCG TAB PO SCH (08:30)
[2016-12-24] MEDS: CITALOPRAM 20 MG TAB PO SCH (08:30)
[2016-12-24] MEDS: METOPROLOL TARTRATE 25 MG TAB PO SCH ×2 (08:31→20:09)
[2016-12-24] MEDS: ALBUTEROL HFA ANES ONLY 200 PUFFS/8.5 GM MDI IH PRN (08:37)
[2016-12-24] MEDS: BUDESONIDE/FORMOTEROL 160/4.5 60 PUFFS/MDI IH SCH ×2 (08:38→20:17)
--- NOTE | 2016-12-24 12:35 | SOAPPROG ---
SOAP Progress Note Assessment/Plan: s/p CABGx3, JARED AtriClip on 12/05/16 - Pt seen at clinic for post-op f/u. Discharged to IP rehab on [place] on . Accompanied by friend and transitional care RN. Overall doing very well. Answered pt's multiple questions regarding activity. He can relax sternal precautions on 01/03/17. He should not drive until cleared by CT surgery. He should continue the 2 liter fluid restriction to prevent further edema. He will be seeing us next Thursday for a recheck. I have ordered a CXR for the day before. Tomorrow, 12/25, his left pleural effusion will be getting drained. He will need help at home when discharged as he lives alone. I reviewed his medications and would like Amiodarone to be changed to 200 mg daily, otherwise the rest look fine. Subjective: Doing well. Denies light-headedness, weakness, CP, palpitations, SOB, abdominal pain. Sleeping is OK. LE had some edema but compression socks and Lasix have helped. Objective: Vital Signs Temp Pulse Resp BP Pulse Ox 36.6 C 69 18 113/85 H 92 12/24/16 06:56 12/24/16 08:31 12/24/16 06:56 12/24/16 08:31 12/24/16 06:56 Laboratory Results 12/24/16 06:20 12/16/16 15:00 12/23/16 12/24/16 12/25/16 05:59 05:59 05:59 Intake Total 1522 950 360 Output Total 1175 600 Balance 347 350 360 PT 16.9 SEC (12.0-15.0) H 12/24/16 06:20 INR 1.37 (0.83-1.16) H 12/24/16 06:20 Physical Exam - Physical Exam General Appearance: WD/WN, alert, no apparent distress EENT: No scleral icterus (R), No scleral icterus (L) Neck: normal inspection Respiratory: lungs clear, normal breath sounds, other (moderate left effusions on CXR), No respiratory distress Cardiac/Chest: regular rate, rhythm Abdomen: non-tender, soft, No distended Skin: normal color, warm/dry Extremities: pedal edema (trace b/l LE ) Neuro/Psych: no motor/sensory deficits, alert, normal mood/affect, oriented x 3 ICD10 Worksheet Patient Problems: Problems Problem Status Onset Acute blood loss anemia Acute Chronic Disease Mgmt/Transitional Care Acute S/P CABG x 3 Acute ~12/05/16 Chest pain Acute Chest pain Acute Coronary artery disease Acute GERD (gastroesophageal reflux disease) Acute Pacemaker Acute Stented coronary artery Acute
--- NOTE | 2016-12-24 12:59 | SOAPPROG ---
SOAP Progress Note Assessment/Plan: Assessment: * Ischemic cardiomyopathy/CAD s/p 3v CABG, complicated by encephalopathy, debility and dysphagia. Initial FIM 78; improved to 90 as of 12/22/16. Walked 400' FWW SBA. Did 9 stairs, 1 rail. Bathing min A, tub t'blanca CGA; o/w S for ADLs. Easy fatigue. Min A UB dressing, shower transfer and bathing. Continue physical, speech and occupational therapy to optimize functional status and mobility -Sternal precautions x 3 weeks: no lifting >10lbs, no push/pull, no driving (through 01/03/17) -Wound care: no submersion, open to air, cleanse daily, elevate right donor site when in bed -Secondary prevention: cont. ASA 81mg, statin, BB * Encephalopathy, improving. Mild - mod deficits to memory, attn, SOP. Continue TRUCKER HAND. * Hypoxemia and FARRELL. CXR 12/16/16 with new L pleural effusion and infiltrate vs. atelectasis LLL. CBC with WBCs improving 12/16, 12/17 & 12/18. Augmentin 875 mg BID X 7 days through 12/23/16. 12/22/16 continues hypoxic; repeat CXR with new R effusion and persisting L effusion + atelectasis. Encourage incentive spirometry. Thoracentesis planned for 12/25/16. * Anemia with appropriately elevated reticulocyte count, on ASA, enoxaparin and citalopram. Improving on labs 12/24/16. Hemoccult stools neg X 3. D/C pantoprazole 12/25/16. Repeat CBC 12/24/16. * Fluid status: hypotensive 12/15/16. Held furosemide, cont 2L fluid restriction. Weight down to 87 kg 12/16/16. Change furosemide from 40 mg QD to 20 mg QD starting 12/17/16; consider continuing taper towards DC. EF 70% after surgery. Chronic/stable issues: * Chills w/out fever; elevated WBCs 12/15/16. Wounds look good. UA normal . * Hyponatremia, mild. He reports prior episode when he was drinking too much fluid. Serum < urine osm, low urine Na 12/15/16. Possible low level of SIADH. Would expect higher urine Na with furosemide. Resolved on BMP 12/16/16. * Hypotension: held metoprolol 12/15/16. BP adequately controlled. * Paroxsymal Afib post-op- converted to paced SR, cont. Amiodarone 200BID, hold metoprolol for low BP. No thromboprophy per card d/t JARED ligation and short duration of the arrhythmia * Post-op Dysphagia: resolved, advanced to regular texture, thin liquids. * H/o COPD/MIGEL: oxygenating well on 2L, home CPAP qHS, will restart home inhalers and ween 02 as tolerated (no home 02) * Prophylaxis-> GI, on ranitidine BID; change to pantoprazole 12/17/16. With homoccult neg X 3, will D/C pantoprazole. * Post-op urinary retention/BPH: resolved, cont. flomax POA/friends: Zeeshan+Deneen Melo [phone] F/U: Dr. Mauricio Garcia (PCP) after d/c Dr. Woody (CT Surgery) on 12/30/16. [place] home with 23STE, no assistance available at home will need to be independent. Tentative D/C . Outpatient cardiac rehabilitation after D/C. 12/24/16 12:53 Subjective: No complaints. Discussed follow-up visit this morning with Dr. Woody. Objective: Vital Signs Temp Pulse Resp BP Pulse Ox 36.6 C 69 18 113/85 H 92 12/24/16 06:56 12/24/16 08:31 12/24/16 06:56 12/24/16 08:31 12/24/16 06:56 Laboratory Results 12/24/16 06:20 12/16/16 15:00 12/23/16 12/24/16 12/25/16 05:59 05:59 05:59 Intake Total 1522 950 600 Output Total 1175 600 Balance 347 350 600 PT 16.9 SEC (12.0-15.0) H 12/24/16 06:20 INR 1.37 (0.83-1.16) H 12/24/16 06:20 Physical Exam - Physical Exam General Appearance: WD/WN, alert, no apparent distress, obese Respiratory: normal breath sounds, decreased breath sounds (LLL), No crackles, No rhonchi, No wheezing Cardiac/Chest: regular rate, rhythm, No edema Neuro/Psych: no motor/sensory deficits, alert, normal mood/affect, oriented x 3 ICD10 Worksheet Patient Problems: Problems Problem Status Onset Acute blood loss anemia Acute Chronic Disease Mgmt/Transitional Care Acute S/P CABG x 3 Acute ~12/05/16 Chest pain Acute Chest pain Acute Coronary artery disease Acute GERD (gastroesophageal reflux disease) Acute Pacemaker Acute Stented coronary artery Acute
[2016-12-24] MEDS: ATORVASTATIN CALCIUM 40 MG TAB PO SCH (17:02)
[2016-12-24] MEDS: QUEtiapine FUMARATE 25 MG TAB PO PRN (21:12)
[2016-12-25] MEDS: ALBUTEROL HFA ANES ONLY 200 PUFFS/8.5 GM MDI IH PRN (07:51)
[2016-12-25] MEDS: BUDESONIDE/FORMOTEROL 160/4.5 60 PUFFS/MDI IH SCH ×2 (07:51→20:14)
[2016-12-25] MEDS: CETIRIZINE 10 MG TAB PO SCH (08:49)
[2016-12-25] MEDS: MULTIVITAMINS 1 EACH TAB PO SCH (08:50)
[2016-12-25] MEDS: ASPIRIN 81 MG CHEWABLE TAB PO SCH (08:50)
[2016-12-25] MEDS: AMIODARONE HCL 200 MG TAB PO SCH (08:50)
[2016-12-25] MEDS: CHOLECALCIFEROL VIT D3 1,000 UNITS TAB PO SCH (08:50)
[2016-12-25] MEDS: CITALOPRAM 20 MG TAB PO SCH (08:51)
[2016-12-25] MEDS: SENNOSIDES/DOCUSATE SODIUM TAB PO SCH ×2 (08:51→20:13)
[2016-12-25] MEDS: FUROSEMIDE 20 MG TAB PO SCH (08:52)
[2016-12-25] MEDS: TAMSULOSIN HCL 0.4 MG CAP PO SCH (08:52)
[2016-12-25] MEDS: CYANO/VITAMIN B12 1000 MCG TAB PO SCH (08:52)
[2016-12-25] MEDS: guaiFENesin 600 MG TAB.ER PO SCH ×2 (08:53→20:13)
[2016-12-25] MEDS: POTASSIUM CL 20 MEQ TAB PO SCH (08:53)
[2016-12-25] MEDS: METOPROLOL TARTRATE 25 MG TAB PO SCH ×2 (10:52→20:15)
--- NOTE | 2016-12-25 11:51 | SOAPPROG ---
SOAP Progress Note Assessment/Plan: Assessment: * Ischemic cardiomyopathy/CAD s/p 3v CABG, complicated by encephalopathy, debility and dysphagia. Initial FIM 78; improved to 90 as of 12/22/16. Walked 400' FWW SBA. Did 9 stairs, 1 rail. Bathing min A, tub t'blanca CGA; o/w S for ADLs. Easy fatigue. Min A UB dressing, shower transfer and bathing. Continue physical, speech and occupational therapy to optimize functional status and mobility -Sternal precautions x 3 weeks: no lifting >10lbs, no push/pull, no driving (through 01/03/17) -Wound care: no submersion, open to air, cleanse daily, elevate right donor site when in bed -Secondary prevention: cont. ASA 81mg, statin, BB * Encephalopathy, improving. Mild - mod deficits to memory, attn, SOP. 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 * Hypoxemia and FARRELL. CXR 12/16/16 with new L pleural effusion and infiltrate vs. atelectasis LLL. CBC with WBCs improving 12/16, 12/17 & 12/18. Augmentin 875 mg BID X 7 days completed 12/23/16. Repeat CXR 12/22/16 with new R effusion and persisting L effusion + atelectasis. Encourage incentive spirometry. Thoracentesis 12/25/16 removed 900 cc straw-colored fluid. Hold ASA until 12/27/16 s/p procedure. * Anemia with appropriately elevated reticulocyte count, on ASA, enoxaparin and citalopram. Improving on labs 12/24/16. Hemoccult stools neg X 3. D/C pantoprazole 12/25/16. Improved on repeat CBC 12/24/16. * Fluid status: hypotensive 12/15/16. Held furosemide, cont 2L fluid restriction. Weight down to 87 kg 12/16/16. Change furosemide from 40 mg QD to 20 mg QD starting 12/17/16; consider continuing taper towards DC. EF 70% after surgery. Chronic/stable issues: * Chills w/out fever; elevated WBCs 12/15/16. Wounds look good. UA normal . * Hyponatremia, mild. He reports prior episode when he was drinking too much fluid. Serum < urine osm, low urine Na 12/15/16. Possible low level of SIADH. Would expect higher urine Na with furosemide. Resolved on BMP 12/16/16. * Hypotension: held metoprolol 12/15/16. BP adequately controlled. * Paroxsymal Afib post-op- converted to paced SR, cont. Amiodarone 200BID, hold metoprolol for low BP. No thromboprophy per card d/t JARED ligation and short duration of the arrhythmia * Post-op Dysphagia: resolved, advanced to regular texture, thin liquids. * H/o COPD/MIGEL: oxygenating well on 2L, home CPAP qHS, will restart home inhalers and ween 02 as tolerated (no home 02) * Prophylaxis-> GI, on ranitidine BID; change to pantoprazole 12/17/16. With homoccult neg X 3, will D/C pantoprazole. * Post-op urinary retention/BPH: resolved, cont. flomax POA/friends: Zeeshan+Deneen Melo [phone] F/U: Dr. Mauricio Garcia (PCP) after d/c Dr. Woody (CT Surgery) on 12/30/16. [place] with [place], no assistance available at home will need to be independent. Tentative D/C . Outpatient cardiac rehabilitation after D/C. 12/25/16 11:50 12/25/16 17:14 Subjective: No complaints. Asks if he can have lunch prior to thoracentesis. Objective: Vital Signs Temp Pulse Resp BP Pulse Ox 36.6 C 69 18 97/57 L 94 12/25/16 07:49 12/25/16 10:52 12/25/16 07:49 12/25/16 10:52 12/25/16 07:49 Laboratory Results 12/24/16 06:20 12/16/16 15:00 12/24/16 12/25/16 12/26/16 05:59 05:59 05:59 Intake Total 950 1430 200 Output Total 600 400 Balance 350 1030 200 PT 16.9 SEC (12.0-15.0) H 12/24/16 06:20 INR 1.37 (0.83-1.16) H 12/24/16 06:20 Physical Exam - Physical Exam General Appearance: WD/WN, alert, no apparent distress, obese Respiratory: normal breath sounds, decreased breath sounds (LLL), No crackles, No rhonchi, No wheezing Cardiac/Chest: regular rate, rhythm, No edema, No JVD Skin: normal color, warm/dry Neuro/Psych: no motor/sensory deficits, alert, normal mood/affect, oriented x 3 ICD10 Worksheet Patient Problems: Problems Problem Status Onset Acute blood loss anemia Acute Chronic Disease Mgmt/Transitional Care Acute S/P CABG x 3 Acute ~12/05/16 Chest pain Acute Chest pain Acute Coronary artery disease Acute GERD (gastroesophageal reflux disease) Acute Pacemaker Acute Stented coronary artery Acute
[2016-12-25] MEDS: ATORVASTATIN CALCIUM 40 MG TAB PO SCH (17:25)
[2016-12-25] MEDS: QUEtiapine FUMARATE 25 MG TAB PO PRN (21:05)
[2016-12-25] MEDS: ACETAMINOPHEN 325 MG TAB PO PRN (21:05)
[2016-12-26] MEDS: ACETAMINOPHEN 325 MG TAB PO PRN (08:49)
[2016-12-26] MEDS: AMIODARONE HCL 200 MG TAB PO SCH (08:51)
[2016-12-26] MEDS: CETIRIZINE 10 MG TAB PO SCH (08:54)
[2016-12-26] MEDS: CHOLECALCIFEROL VIT D3 1,000 UNITS TAB PO SCH (08:54)
[2016-12-26] MEDS: guaiFENesin 600 MG TAB.ER PO SCH ×2 (08:55→20:04)
[2016-12-26] MEDS: CYANO/VITAMIN B12 1000 MCG TAB PO SCH (08:55)
[2016-12-26] MEDS: CITALOPRAM 20 MG TAB PO SCH (08:55)
[2016-12-26] MEDS: MULTIVITAMINS 1 EACH TAB PO SCH (08:56)
[2016-12-26] MEDS: POTASSIUM CL 20 MEQ TAB PO SCH (08:57)
[2016-12-26] MEDS: TAMSULOSIN HCL 0.4 MG CAP PO SCH (08:59)
[2016-12-26] MEDS: ALBUTEROL HFA ANES ONLY 200 PUFFS/8.5 GM MDI IH PRN (09:00)
[2016-12-26] MEDS: SYSTANE ULTRA EYE DROPS EACHEYE PRN (09:01)
[2016-12-26] MEDS: SENNOSIDES/DOCUSATE SODIUM TAB PO SCH ×2 (09:02→20:04)
[2016-12-26] MEDS: BUDESONIDE/FORMOTEROL 160/4.5 60 PUFFS/MDI IH SCH ×2 (09:03→20:03)
--- NOTE | 2016-12-26 09:39 | SOAPPROG ---
SOAP Progress Note Assessment/Plan: Assessment: * Ischemic cardiomyopathy/CAD s/p 3v CABG, complicated by encephalopathy, debility and dysphagia. Initial FIM 78; improved to 90 as of 12/22/16 and to 98 as of 12/26/16 Walked 200' with FWW; PT goal to wean from device. Did 9 steps, 1 rail. SBA for ADLs. Easy fatigue. Continue physical, speech and occupational therapy to optimize functional status and mobility -Sternal precautions x 3 weeks: no lifting >10lbs, no push/pull, no driving (through 01/03/17) -Wound care: no submersion, open to air, cleanse daily, elevate right donor site when in bed -Secondary prevention: cont. ASA 81mg, statin, BB * Encephalopathy, improving. Mild deficits to memory, attn, SOP. Will need help for med management. Continue BRASS FINISHER. * Hypoxemia and FARRELL. CXR 12/16/16 with new L pleural effusion and infiltrate vs. atelectasis LLL. CBC with WBCs improving 12/16, 12/17 & 12/18. Augmentin 875 mg BID X 7 days completed 12/23/16. Repeat CXR 12/22/16 with new R effusion and persisting L effusion + atelectasis. Encourage incentive spirometry. Thoracentesis 12/25/16 removed 900 cc straw-colored fluid. Hold ASA until 12/27/16 s/p procedure. * Anemia with appropriately elevated reticulocyte count, on ASA, enoxaparin and citalopram. Improving on labs 12/24/16. Hemoccult stools neg X 3. D/C pantoprazole 12/25/16. Improved on repeat CBC 12/24/16. * Fluid status: hypotensive 12/15/16. Held furosemide, cont 2L fluid restriction. Weight down to 87 kg 12/16/16. Change furosemide from 40 mg QD to 20 mg QD starting 12/17/16; consider continuing taper towards DC. EF 70% after surgery. 12/26/16: weight down to 83 kg s/p thoracentesis, and low BP. Will d/c furosemide starting 12/26/16. Chronic/stable issues: * Chills w/out fever; elevated WBCs 12/15/16. Wounds look good. UA normal . * Hyponatremia, mild. He reports prior episode when he was drinking too much fluid. Serum < urine osm, low urine Na 12/15/16. Possible low level of SIADH. Would expect higher urine Na with furosemide. Resolved on BMP 12/16/16. * Hypotension: held metoprolol 12/15/16. BP adequately controlled. * Paroxsymal Afib post-op- converted to paced SR, cont. Amiodarone 200BID, hold metoprolol for low BP. No thromboprophy per card d/t JARED ligation and short duration of the arrhythmia * Post-op Dysphagia: resolved, advanced to regular texture, thin liquids. * H/o COPD/MIGEL: oxygenating well on 2L, will restart home inhalers and ween 02 as tolerated (no home 02). CPAP not functional; will need repeat sleep study for new device after discharge. * Prophylaxis-> GI, on ranitidine BID; change to pantoprazole 12/17/16. With homoccult neg X 3, will D/C pantoprazole. * Post-op urinary retention/BPH: resolved, cont. flomax POA/friends: Zeeshan+Deneen Melo [phone] F/U: Dr. Mauricio Garcia (PCP) after d/c Dr. Woody (CT Surgery) on 12/30/16. Attended staffing, 15 min. D/W case mgmt, nursing, PT, OT, BRASS FINISHER. Planfor discharge 12/30/16[place] with [place], will need help for stairs in and out of house and will initially be home-bound. Home RN, PT, OT, BRASS FINISHER, TRUCK GREASER, MANAGER FINE DINING. Outpatient cardiac rehabilitation once he's no longer home-bound. 12/26/16 10:17 12/26/16 12:12 Subjective: No complaints. Slept well. Currently not on O2, working with OT. No cough or dyspnea. Low BP noted by nurse. Objective: Vital Signs Temp Pulse Resp BP Pulse Ox 36.6 C 70 18 93/48 L 96 12/26/16 07:07 12/26/16 09:13 12/26/16 07:07 12/26/16 09:13 12/26/16 09:12 Laboratory Results 12/24/16 06:20 12/16/16 15:00 12/25/16 12/26/16 12/27/16 05:59 05:59 05:59 Intake Total 1430 1100 120 Output Total 400 900 Balance 1030 200 120 PT 16.9 SEC (12.0-15.0) H 12/24/16 06:20 INR 1.37 (0.83-1.16) H 12/24/16 06:20 - Time Spent With Patient Time Spent With Patient: Greater than 35 minutes floor time today, including more than 50% of time in coordination of care during staffing meeting, and counseling patient. Physical Exam - Physical Exam General Appearance: WD/WN, alert, no apparent distress, obese Respiratory: normal breath sounds, No crackles (LLL, inspiratory), No rhonchi, No wheezing Cardiac/Chest: regular rate, rhythm, No edema, No diastolic murmur, No systolic murmur Skin: normal color, warm/dry Neuro/Psych: no motor/sensory deficits, alert, normal mood/affect, oriented x 3 ICD10 Worksheet Patient Problems: Problems Problem Status Onset Acute blood loss anemia Acute Chronic Disease Mgmt/Transitional Care Acute S/P CABG x 3 Acute ~12/05/16 Chest pain Acute Chest pain Acute Coronary artery disease Acute GERD (gastroesophageal reflux disease) Acute Pacemaker Acute Stented coronary artery Acute
[2016-12-26] MEDS: FUROSEMIDE 20 MG TAB PO SCH (09:42)
[2016-12-26] MEDS: METOPROLOL TARTRATE 25 MG TAB PO SCH ×2 (09:42→20:03)
[2016-12-26] MEDS: ATORVASTATIN CALCIUM 40 MG TAB PO SCH (17:15)
[2016-12-26] MEDS: QUEtiapine FUMARATE 25 MG TAB PO PRN (21:54)
[2016-12-27] MEDS: BUDESONIDE/FORMOTEROL 160/4.5 60 PUFFS/MDI IH SCH ×2 (07:40→20:02)
[2016-12-27] MEDS: IPRATROPIUM 0.06% NASAL SPRAY EACHNARE PRN (07:41)
[2016-12-27] MEDS: SYSTANE ULTRA EYE DROPS EACHEYE PRN (07:41)
[2016-12-27] MEDS: ACETAMINOPHEN 325 MG TAB PO PRN (08:32)
[2016-12-27] MEDS: AMIODARONE HCL 200 MG TAB PO SCH (08:33)
[2016-12-27] MEDS: ASPIRIN 81 MG CHEWABLE TAB PO SCH (08:33)
[2016-12-27] MEDS: CETIRIZINE 10 MG TAB PO SCH (08:34)
[2016-12-27] MEDS: CHOLECALCIFEROL VIT D3 1,000 UNITS TAB PO SCH (08:34)
[2016-12-27] MEDS: CITALOPRAM 20 MG TAB PO SCH (08:35)
[2016-12-27] MEDS: CYANO/VITAMIN B12 1000 MCG TAB PO SCH (08:35)
[2016-12-27] MEDS: guaiFENesin 600 MG TAB.ER PO SCH ×2 (08:36→20:02)
[2016-12-27] MEDS: METOPROLOL TARTRATE 25 MG TAB PO SCH ×2 (08:37→20:01)
[2016-12-27] MEDS: MULTIVITAMINS 1 EACH TAB PO SCH (08:39)
[2016-12-27] MEDS: SENNOSIDES/DOCUSATE SODIUM TAB PO SCH ×2 (08:39→20:01)
[2016-12-27] MEDS: TAMSULOSIN HCL 0.4 MG CAP PO SCH (08:39)
--- NOTE | 2016-12-27 12:32 | SOAPPROG ---
SOAP Progress Note Assessment/Plan: Assessment: 81-year-old male status post encephalopathy after coronary artery bypass graft with reduced endurance and a [place]. Today's update patient is new to me and all medical issues are new to me as well. Appears to be doing well after the thoracentesis, but has some mild pain in that area with deep inspiration, but normal breath sounds. Oxygenation was slightly lower today than yesterday, he denies any shortness of breath. Continue to monitor, I think that he is doing well after his thoracentesis, low threshold to obtain a follow-up chest x-ray. * Ischemic cardiomyopathy/CAD s/p 3v CABG, complicated by encephalopathy, debility and dysphagia. Initial FIM 78; improved to 90 as of 12/22/16 and to 98 as of 12/26/16 Walked 200' with FWW; PT goal to wean from device. Did 9 steps, 1 rail. SBA for ADLs. Easy fatigue. Continue physical, speech and occupational therapy to optimize functional status and mobility -Sternal precautions x 3 weeks: no lifting >10lbs, no push/pull, no driving (through 01/03/17) -Wound care: no submersion, open to air, cleanse daily, elevate right donor site when in bed -Secondary prevention: cont. ASA 81mg, statin, BB * Encephalopathy, improving. Mild deficits to memory, attn, SOP. Will need help for med management. Continue BENCHROOM SHOP OPTICIAN. * Hypoxemia and FARRELL. CXR 12/16/16 with new L pleural effusion and infiltrate vs. atelectasis LLL. CBC with WBCs improving 12/16, 12/17 & 12/18. Augmentin 875 mg BID X 7 days completed 12/23/16. Repeat CXR 12/22/16 with new R effusion and persisting L effusion + atelectasis. Encourage incentive spirometry. Thoracentesis 12/25/16 removed 900 cc straw-colored fluid. Hold ASA until 12/27/16 s/p procedure. * Anemia with appropriately elevated reticulocyte count, on ASA, enoxaparin and citalopram. Improving on labs 12/24/16. Hemoccult stools neg X 3. D/C pantoprazole 12/25/16. Improved on repeat CBC 12/24/16. * Fluid status: hypotensive 12/15/16. Held furosemide, cont 2L fluid restriction. Weight down to 87 kg 12/16/16. Change furosemide from 40 mg QD to 20 mg QD starting 12/17/16; consider continuing taper towards DC. EF 70% after surgery. 12/26/16: weight down to 83 kg s/p thoracentesis, and low BP. Will d/c furosemide starting 12/26/16. Chronic/stable issues: * Chills w/out fever; elevated WBCs 12/15/16. Wounds look good. UA normal . * Hyponatremia, mild. He reports prior episode when he was drinking too much fluid. Serum < urine osm, low urine Na 12/15/16. Possible low level of SIADH. Would expect higher urine Na with furosemide. Resolved on BMP 12/16/16. * Hypotension: held metoprolol 12/15/16. BP adequately controlled. * Paroxsymal Afib post-op- converted to paced SR, cont. Amiodarone 200BID, hold metoprolol for low BP. No thromboprophy per card d/t JARED ligation and short duration of the arrhythmia * Post-op Dysphagia: resolved, advanced to regular texture, thin liquids. * H/o COPD/MIGEL: oxygenating well on 2L, will restart home inhalers and ween 02 as tolerated (no home 02). CPAP not functional; will need repeat sleep study for new device after discharge. * Prophylaxis-> GI, on ranitidine BID; change to pantoprazole 12/17/16. With homoccult neg X 3, will D/C pantoprazole. * Post-op urinary retention/BPH: resolved, cont. flomax POA/friends: Zeeshan+Deneen Melo [phone] F/U: Dr. Mauricio Garcia (PCP) after d/c Dr. Woody (CT Surgery) on 12/30/16. Plan for discharge 12/30/16 [place] home with 23STE, will need help for stairs in and out of house and will initially be home-bound. Home RN, PT, OT, BENCHROOM SHOP OPTICIAN, PLACEMENT SPECIALIST , DOUGH MOLDER HAND. Outpatient cardiac rehabilitation once he's no longer home-bound. 12/27/16 12:29 Subjective: CC: breathing No acute events overnight. Patient endorses that overall he is doing better today after the thoracentesis, he does have some mild pain in the area of the procedure. Oxygenation levels were slightly lower today, around 90% on room air. Reinforced use of incentive spirometry. Patient denies any shortness of breath, chest pain, new numbness, tingling, or weakness. His mood is good he is looking forward to getting home. Objective: Vital Signs Temp Pulse Resp BP Pulse Ox 36.5 C 70 14 117/63 91 L 12/27/16 07:32 12/27/16 08:37 12/27/16 07:32 12/27/16 08:37 12/27/16 07:32 Laboratory Results 12/24/16 06:20 12/16/16 15:00 12/26/16 12/27/16 12/28/16 05:59 05:59 05:59 Intake Total 1100 1000 120 Output Total 900 1150 200 Balance 200 -150 -80 PT 16.9 SEC (12.0-15.0) H 12/24/16 06:20 INR 1.37 (0.83-1.16) H 12/24/16 06:20 Physical Exam - Physical Exam General Appearance: WD/WN, alert, no apparent distress Respiratory: chest non-tender, lungs clear, normal breath sounds, wheezing, No respiratory distress, No accessory muscle use, No decreased breath sounds, No rales, No rhonchi, No splinting, No pain on movement Cardiac/Chest: normal peripheral pulses, regular rate, rhythm, systolic murmur, No edema, No irregularly irregular Abdomen: normal bowel sounds, No distended, No guarding Skin: normal color, warm/dry, No cyanosis Extremities: No pedal edema, No swelling Neuro/Psych: alert, normal mood/affect ICD10 Worksheet Patient Problems: Problems Problem Status Onset Acute blood loss anemia Acute Chronic Disease Mgmt/Transitional Care Acute S/P CABG x 3 Acute ~12/05/16 Chest pain Acute Chest pain Acute Coronary artery disease Acute GERD (gastroesophageal reflux disease) Acute Pacemaker Acute Stented coronary artery Acute
[2016-12-27] MEDS: ATORVASTATIN CALCIUM 40 MG TAB PO SCH (18:22)
[2016-12-27] MEDS: QUEtiapine FUMARATE 25 MG TAB PO PRN (21:17)
[2016-12-28] MEDS: AMIODARONE HCL 200 MG TAB PO SCH (08:59)
[2016-12-28] MEDS: BUDESONIDE/FORMOTEROL 160/4.5 60 PUFFS/MDI IH SCH ×2 (08:59→20:08)
[2016-12-28] MEDS: ASPIRIN 81 MG CHEWABLE TAB PO SCH (08:59)
[2016-12-28] MEDS: ALBUTEROL HFA ANES ONLY 200 PUFFS/8.5 GM MDI IH PRN (09:00)
[2016-12-28] MEDS: CETIRIZINE 10 MG TAB PO SCH (09:00)
[2016-12-28] MEDS: CITALOPRAM 20 MG TAB PO SCH (09:01)
[2016-12-28] MEDS: CYANO/VITAMIN B12 1000 MCG TAB PO SCH (09:01)
[2016-12-28] MEDS: METOPROLOL TARTRATE 25 MG TAB PO SCH ×2 (09:01→20:03)
[2016-12-28] MEDS: CHOLECALCIFEROL VIT D3 1,000 UNITS TAB PO SCH (09:01)
[2016-12-28] MEDS: SENNOSIDES/DOCUSATE SODIUM TAB PO SCH ×2 (09:02→20:03)
[2016-12-28] MEDS: MULTIVITAMINS 1 EACH TAB PO SCH (09:02)
[2016-12-28] MEDS: guaiFENesin 600 MG TAB.ER PO SCH ×2 (09:02→20:03)
[2016-12-28] MEDS: ACETAMINOPHEN 325 MG TAB PO PRN (09:02)
[2016-12-28] MEDS: TAMSULOSIN HCL 0.4 MG CAP PO SCH (09:02)
--- NOTE | 2016-12-28 11:34 | SOAPPROG ---
SOAP Progress Note Assessment/Plan: Assessment: 81-year-old male status post encephalopathy after coronary artery bypass graft with reduced endurance and a [place]. Today's update Doing well, maintaining oxygenation on CPAP machine. Continue rehab plan below. Plan for discharge tomorrow. Lungs are clear, oxygenating well. * Ischemic cardiomyopathy/CAD s/p 3v CABG, complicated by encephalopathy, debility and dysphagia. Initial FIM 78; improved to 90 as of 12/22/16 and to 98 as of 12/26/16 Walked 200' with FWW; PT goal to wean from device. Did 9 steps, 1 rail. SBA for ADLs. Easy fatigue. Continue physical, speech and occupational therapy to optimize functional status and mobility -Sternal precautions x 3 weeks: no lifting >10lbs, no push/pull, no driving (through 01/03/17) -Wound care: no submersion, open to air, cleanse daily, elevate right donor site when in bed -Secondary prevention: cont. ASA 81mg, statin, BB * Encephalopathy, improving. Mild deficits to memory, attn, SOP. Will need help for med management. 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 * Hypoxemia and FARRELL. CXR 12/16/16 with new L pleural effusion and infiltrate vs. atelectasis LLL. CBC with WBCs improving 12/16, 12/17 & 12/18. Augmentin 875 mg BID X 7 days completed 12/23/16. Repeat CXR 12/22/16 with new R effusion and persisting L effusion + atelectasis. Encourage incentive spirometry. Thoracentesis 12/25/16 removed 900 cc straw-colored fluid. Hold ASA until 12/27/16 s/p procedure. * Anemia with appropriately elevated reticulocyte count, on ASA, enoxaparin and citalopram. Improving on labs 12/24/16. Hemoccult stools neg X 3. D/C pantoprazole 12/25/16. Improved on repeat CBC 12/24/16. * Fluid status: hypotensive 12/15/16. Held furosemide, cont 2L fluid restriction. Weight down to 87 kg 12/16/16. Change furosemide from 40 mg QD to 20 mg QD starting 12/17/16; consider continuing taper towards DC. EF 70% after surgery. 12/26/16: weight down to 83 kg s/p thoracentesis, and low BP. Will d/c furosemide starting 12/26/16. Chronic/stable issues: * Chills w/out fever; elevated WBCs 12/15/16. Wounds look good. UA normal . * Hyponatremia, mild. He reports prior episode when he was drinking too much fluid. Serum < urine osm, low urine Na 12/15/16. Possible low level of SIADH. Would expect higher urine Na with furosemide. Resolved on BMP 12/16/16. * Hypotension: held metoprolol 12/15/16. BP adequately controlled. * Paroxsymal Afib post-op- converted to paced SR, cont. Amiodarone 200BID, hold metoprolol for low BP. No thromboprophy per card d/t JARED ligation and short duration of the arrhythmia * Post-op Dysphagia: resolved, advanced to regular texture, thin liquids. * H/o COPD/MIGEL: oxygenating well on 2L, will restart home inhalers and ween 02 as tolerated (no home 02). CPAP not functional; will need repeat sleep study for new device after discharge. * Prophylaxis-> GI, on ranitidine BID; change to pantoprazole 12/17/16. With homoccult neg X 3, will D/C pantoprazole. * Post-op urinary retention/BPH: resolved, cont. flomax POA/friends: Zeeshan+Deneen Melo [phone] F/U: Dr. Mauricio Garcia (PCP) after d/c Dr. Woody (CT Surgery) on 12/30/16. Plan for discharge 12/30/16 [place] with 23STE, will need help for stairs in and out of house and will initially be home-bound. 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 Outpatient cardiac rehabilitation once he's no longer home-bound. 12/27/16 12:29 12/28/16 11:30 Subjective: CC: pulmonary health No acute events overnight. Patient endorses that pain at the side of the thoracentesis has improved. No shortness of breath or chest pain, no new numbness, tingling, or weakness. He's been monitoring his own oxygen level which is been in the mid-90s. He's maintaining his oxygen saturation's overnight on a CPAP machine, no need for home O2. Participating loan therapies , no concerns today. Objective: Vital Signs Temp Pulse Resp BP Pulse Ox 36.8 C 70 16 118/60 92 12/28/16 05:36 12/28/16 09:01 12/28/16 05:36 12/28/16 09:01 12/28/16 05:36 Laboratory Results 12/24/16 06:20 12/16/16 15:00 12/27/16 12/28/16 12/29/16 05:59 05:59 05:59 Intake Total 1000 1200 240 Output Total 1150 1350 500 Balance -150 -150 -260 PT 16.9 SEC (12.0-15.0) H 12/24/16 06:20 INR 1.37 (0.83-1.16) H 12/24/16 06:20 Physical Exam - Physical Exam General Appearance: WD/WN, alert, no apparent distress Respiratory: lungs clear, normal breath sounds, other (symmentrical at the lung bases. No dullness to percussion, symmetrical.), No respiratory distress, No accessory muscle use, No rales, No rhonchi, No wheezing, No pleural rub Cardiac/Chest: normal peripheral pulses, regular rate, rhythm, No edema Skin: normal color, warm/dry, No cyanosis Neuro/Psych: alert, normal mood/affect ICD10 Worksheet Patient Problems: Problems Problem Status Onset Acute blood loss anemia Acute Chronic Disease Mgmt/Transitional Care Acute S/P CABG x 3 Acute ~12/05/16 Chest pain Acute Chest pain Acute Coronary artery disease Acute GERD (gastroesophageal reflux disease) Acute Pacemaker Acute Stented coronary artery Acute
[2016-12-28] MEDS: ATORVASTATIN CALCIUM 40 MG TAB PO SCH (16:47)
[2016-12-28 19:40] VITALS: RESP 16; O2SAT 96
[2016-12-28] MEDS: QUEtiapine FUMARATE 25 MG TAB PO PRN (21:33)
[2016-12-29] MEDS: ACETAMINOPHEN 325 MG TAB PO PRN (07:29)
[2016-12-29] MEDS: ALBUTEROL HFA ANES ONLY 200 PUFFS/8.5 GM MDI IH PRN (07:30)
[2016-12-29] MEDS: ASPIRIN 81 MG CHEWABLE TAB PO SCH (07:30)
[2016-12-29] MEDS: AMIODARONE HCL 200 MG TAB PO SCH (07:30)
[2016-12-29] MEDS: BUDESONIDE/FORMOTEROL 160/4.5 60 PUFFS/MDI IH SCH (07:32)
[2016-12-29] MEDS: METOPROLOL TARTRATE 25 MG TAB PO SCH (07:33)
[2016-12-29] MEDS: CITALOPRAM 20 MG TAB PO SCH (07:40)
[2016-12-29] MEDS: CETIRIZINE 10 MG TAB PO SCH (07:40)
[2016-12-29] MEDS: CYANO/VITAMIN B12 1000 MCG TAB PO SCH (07:40)
[2016-12-29] MEDS: TAMSULOSIN HCL 0.4 MG CAP PO SCH (07:40)
[2016-12-29] MEDS: SENNOSIDES/DOCUSATE SODIUM TAB PO SCH (07:40)
[2016-12-29] MEDS: guaiFENesin 600 MG TAB.ER PO SCH (07:40)
[2016-12-29] MEDS: MULTIVITAMINS 1 EACH TAB PO SCH (07:40)
[2016-12-29] MEDS: CHOLECALCIFEROL VIT D3 1,000 UNITS TAB PO SCH (07:41)
[2016-12-29 09:14] VITALS: BP 108/57; PULSE 71; TEMP 97.9
--- NOTE | 2016-12-29 15:34 | GDS ---
[f rep st] DISCHARGE SUMMARY ADMITTING DIAGNOSIS: Encephalopathy, status post coronary artery bypass graft. DISCHARGE DIAGNOSIS: Encephalopathy, status post coronary artery bypass graft. CONSULTATIONS: He was seen in followup by cardiothoracic surgeon, Dr. Woody. PROCEDURES: He had a thoracentesis done. COMPLICATIONS: Pleural effusion.. HISTORY AND HOSPITAL COURSE: The patient came to inpatient rehabilitation from [facility]. He had undergone a coronary artery bypass graft on 2016 for coronary artery disease. After surgery, he had persistent encephalopathy, urinary retention and dysphagia which delayed his discharge and eventually discharge decision was to inpatient rehabilitation. He had good progress in rehabilitation with considerable improvement in cephalopathy. His initial functional independence measure was 78; this improved to 90 as of 12/22/2016 and to 98 as of 12/26/2016. 98 is consistent with assisted living level of function and close to independent function. He walks 200 feet with a front-wheeled walker with a goal with physical therapy to wean from the device. He had climbed and descended 9 stairs using 1 rail with standby assistance. He required standby assistance for activities of daily living. Quetiapine, which had been prescribed in the hospital, was discontinued and he had progressive cognitive improvement, though he continued to have mild deficits to memory, attention and speed of processing. He will need help for medication management, but appeared to be competent to manage his finances. He had oxygen dependency. Evaluation initially revealed a possible infiltrate on chest x-ray, as well as well as an elevated white blood cell count. He also had a left pleural effusion. He was treated with antibiotics. The elevated white blood cell count resolved. Repeat imaging showed persistent and larger left pleural effusion. He was seen in followup by Dr. Woody and scheduled for a thoracentesis per Radiology; this was done removing 900 cc of straw-colored fluid. Over the several days following a thoracentesis, he had progressively improved breathing and oxygenation. He had a previous diagnosis of obstructive sleep apnea and had been using CPAP, but he reported the admission was malfunctioning. It was brought in. Respiratory therapy assessed the CPAP and remedied the problem. Once he was using CPAP, he had no need for oxygen, daytime or nighttime. Anemia improved steadily through his course. Dysphagia resolved with treatment with Speech and Language Pathology, and he was advanced to regular texture and thin liquids. PHYSICAL EXAMINATION: VITAL SIGNS: Blood pressure is 108/57, heart rate is 71 , respiratory rate is 16, oxygen saturation is 96% on room air. Temperature is 36.6 degrees Centigrade. His weight is 84.1 kg. GENERAL: This is a well- nourished, well-developed man standing in his room, packing his bags, cooperative and in no acute distress. HEART: Regular rate and rhythm with no murmurs, rubs, or gallops. LUNGS: Clear to auscultation bilaterally. ABDOMEN : Soft, nontender, nondistended with normoactive bowel sounds. EXTREMITIES: There is no cyanosis, clubbing, or edema. NEUROLOGIC: He is alert and oriented x3. He has slightly slow processing. There is no focal weakness. Sensation is intact to light touch, and his gait is normal. LABORATORY DATA AND STUDIES: During his stay: Chest x-ray done today in preparation for followup with Dr. Woody shows resolving bilateral pleural effusions. CBC had an elevated white count initially at 11.25 on 12/15/2016; it was 11.99 on December 16 and, on 12/24/2016, the white blood cell count was normal at 5.82. He had anemia which improved and, on 12/24/2016, hemoglobin was 9.2 and his hematocrit was 27.8. Serum chemistry on 12/16/2016 showed a mildly elevated blood sugar at 111, but this was likely not fasting. Otherwise, renal function and electrolytes were within normal limits. Urinalysis was overall within normal limits. Hemoccult stools were negative x3. CONDITION UPON DISCHARGE: Good. ACTIVITY: Ad gamal but he is to continue to maintain sternal precautions through 01/03/2017. DIET: Regular. FOLLOWUP: He has followup with Dr. Woody, cardiothoracic surgery, on 2016. MEDICATIONS AT DISCHARGE: 1. Amiodarone 200 mg p.o. daily. 2. Cetirizine 10 mg p.o. daily. 3. Guaifenesin 1200 mg p.o. twice daily. 4. Polyethylene glycol 17 g p.o. daily p.r.n. 5. Senna/docusate 2 tablets p.o. twice daily. 6. Multivitamin 1 p.o. daily. 7. Cholecalciferol 1000 units p.o. daily. 8. Cyanocobalamin 1000 mcg p.o. daily. 9. Propylene glycol eyedrops to each eye p.r.n. 10. Cepacol lozenge p.r.n. 11. Aspirin 81 mg p.o. daily. 12. Acetaminophen 325-650 mg p.o. q.4 hours p.r.n. 13. Albuterol metered-dose inhaler 1-2 puffs q.4 hours p.r.n. 14. Atorvastatin 40 mg p.o. daily. 15. Budesonide/formoterol 2 puffs twice daily. 16. Citalopram 40 mg p.o. daily. 17. Ipratropium nasal 2 sprays each naris daily p.r.n. 18. Metoprolol 12.5 mg p.o. twice daily. 19. Tamsulosin 0.4 mg p.o. daily. ISSUES TO BE ADDRESSED AT FOLLOWUP: 1. Respiratory status. He will see Dr. Woody, cardiothoracic surgeon, on 12/30, and he will eventually be referred for cardiac rehabilitation. 2. Obstructive sleep apnea. CPAP appears to be functioning after adjustment by Respiratory Therapy while he was inpatient. It was recommended that he have a repeat sleep study, and titration and adjustment of CPAP. 3. Functional status. He will initially have home nurse for medication management, physical, occupational and speech therapies, MEDICAL STENOGRAPHER and social media executive. It is likely that he will initially be homebound, though he is functioning quite well, due to 23 [place]. The therapy assessments will be regarding his independent function at home and the EQUAL EMPLOYMENT OPPORTUNITY OFFICER will be in order to determine if there are any other services needed. 4. Multiple chronic conditions including COPD, coronary artery disease, history of urinary retention, anemia, hypertension. He can follow up with his primary care provider, Dr. Garcia. I spent greater than 35 minutes on this discharge, including coordination of care, medication reconciliation and counseling the patient. /[id number]/MODL MTDD
--- NOTE | 2016-12-30 12:34 | PDOREHIP ---
Admission [facility] - Admission - 3 Day Assessment Period Admission Date/Day 1: 12/14/16 Day 2: 12/15/16 Day 3: 12/16/16 Discharge [facility] - Discharge - 3 Day Assessment Period 2 Days Prior to Anticipated Discharge Date: 12/27/16 1 Day Prior to Anticipated Discharge Date: 12/28/16 Anticipated Discharge Date: 12/29/16 - Discharge Skin Conditions Unhealed Pressure Ulcer (1 or more/Stage 1 or >)-Discharge: 0. No
== END 2016-12-29 13:42 | disposition home or self-care (01) | DRG 949 ==
LOC: BREH 12-14 12:45
PROVIDERS: ADMIT Internal Medicine; ATTEND Physical Medicine & Rehabilitation
PROC: F07Z5FZ Bed Mobility Treatment using Assistive, Adaptive, Supportive or Protective Equipment (ICD-10-PCS; principal; 2016-12-14)
PROC: F08Z0FZ Bathing/Showering Techniques Treatment using Assistive, Adaptive, Supportive or Protective Equipment (ICD-10-PCS; principal; 2016-12-14)
PROC: F08 Physical Rehabilitation and Diagnostic Audiology, Rehabilitation, Activities of Daily Living Treatment (ICD-10-PCS; principal; 2016-12-14)
PROC: F08Z3FZ Feeding/Eating Treatment using Assistive, Adaptive, Supportive or Protective Equipment (ICD-10-PCS; principal; 2016-12-14)
PROC: F08Z2FZ Grooming/Personal Hygiene Treatment using Assistive, Adaptive, Supportive or Protective Equipment (ICD-10-PCS; principal; 2016-12-14)
DX: Z48.812 Encounter for surgical aftercare following surgery on the circulatory system (principal); G93.40 Encephalopathy, unspecified; D62 Acute posthemorrhagic anemia; R13.19 Other dysphagia; R33.9 Retention of urine, unspecified; I25.5 Ischemic cardiomyopathy; I25.10 Atherosclerotic heart disease of native coronary artery without angina pectoris; I25.2 Old myocardial infarction; I48.0 Paroxysmal atrial fibrillation; J44.9 Chronic obstructive pulmonary disease, unspecified; G47.33 Obstructive sleep apnea (adult) (pediatric); F17.210 Nicotine dependence, cigarettes, uncomplicated; Z95.0 Presence of cardiac pacemaker; Z95.1 Presence of aortocoronary bypass graft
CPT/HCPCS: 92507-GN; 92522-GN; 92526-GN; 92610-GN; 97110-GP; 97112-GP; 97116-GP; 97161-GP; 97166-GO; 97530-GO; 97530-GP; 97535-GO; J1650

== ENCOUNTER → 2016-12-25 | Outpatient (CLI) | payer OTHER ==
[~2016-12-25] MED LIST changes: -AMINOCAPROIC ACID 5 GM/20 ML VIAL IV ONE; -CITRATE DEXTROSE SOLN 500 ML BAG MISC ONE; -INSULIN REGULAR HUMAN 100 UNIT in NS 100 ML IV ONE; +LIDOCAINE 1% 300 MG/30 ML SDV ONE; -MANNITOL 25% 12.5 GM/50 ML VIAL IV ONE; -PHENYLEPHRINE HCL 50 MG in NS 250 ML IV ONE; -PROPOFOL 200 MG/20 ML VIAL ONE; -ROCURONIUM 100 MG/10 ML VIAL ONE; -SODIUM BICARBONATE 20 MEQ, LIDOCAINE 1% 10 ML in NORMOSOL-R 1,000 ML MISC ONE; -VERAPAMIL 5 MG, NITROGLYCERIN 2.5 MG, HEPARIN 500 UNIT, SODIUM BICARBONATE 0.2 MEQ in L... MISC ONE; -ceFAZolin 2 GM/DEXTROSE 100 ML IV ONE; -fentaNYL 100 MCG/2 ML INJ ONE
== END ==
LOC: FIMAGING 13:36
PROVIDERS: ATTEND Thoracic Surgery (Cardiothoracic Vascular Surgery)
PROC: 0W9B3ZZ Drainage of Left Pleural Cavity, Percutaneous Approach (ICD-10-PCS; principal; 2016-12-25)
DX: J90 Pleural effusion, not elsewhere classified (principal); Z95.1 Presence of aortocoronary bypass graft

== ENCOUNTER → 2017-01-15 | Outpatient (CLI) | payer OTHER, MEDICARE | LOC: BMCIMAGING 13:58 | PROVIDERS: ATTEND Internal Medicine | CPT/HCPCS: 36415-PO; G0463-PO ==

== ENCOUNTER → 2017-01-22 | Outpatient (CLI) | payer OTHER, MEDICARE | LOC: FCPNEURO 23:26 | PROVIDERS: ATTEND Internal Medicine Sleep Medicine | DX: G47.33 Obstructive sleep apnea (adult) (pediatric) (principal) ==

== ENCOUNTER → 2017-03-13 | Outpatient (CLI) | payer OTHER, MEDICARE ==
[~2017-03-13] MED LIST changes: +IOPAMIDOL (ISOVUE-300) 100 ML BTL ONE; -LIDOCAINE 1% 300 MG/30 ML SDV ONE
== END ==
LOC: FIMAGING 11:44
PROVIDERS: ATTEND Internal Medicine
DX: R41.89 Other symptoms and signs involving cognitive functions and awareness (principal)
CPT/HCPCS: 70470; Q9967

== ENCOUNTER → 2017-03-27 | Outpatient (CLI) | payer OTHER, MEDICARE ==
[~2017-03-27] MED LIST changes: +IOPAMIDOL (ISOVUE 370) 100 ML BTL IV ONE; -IOPAMIDOL (ISOVUE-300) 100 ML BTL ONE
== END ==
LOC: FIMAGING 07:33
PROVIDERS: ATTEND Psychiatry & Neurology Neurology
DX: I63.9 Cerebral infarction, unspecified (principal); I25.10 Atherosclerotic heart disease of native coronary artery without angina pectoris; E78.5 Hyperlipidemia, unspecified; G47.33 Obstructive sleep apnea (adult) (pediatric)
CPT/HCPCS: 70496; 70498; Q9967

== ENCOUNTER 2017-11-30 18:00 | Inpatient (IN) | payer OTHER, MEDICARE ==
[2017-11-30] MEDS ORDERED: NS 500 ML IV ONE (18:41)
--- NOTE | 2017-11-30 18:45 | EDPHY ---
H & P Stated Complaint: blood in stool Time Seen by Provider: 11/30/17 18:20 HPI/ROS: CHIEF COMPLAINT: Bright red blood per rectum HISTORY OF PRESENT ILLNESS: 81-year-old male presents with bright red blood per rectum. Bright red blood in the toilet when he has bowel movements for the past 4 days. 1-2 episodes every day. Today he passed a large amount of blood without a bowel movement. No abdominal pain. No vomiting or diarrhea. He also has a 2 week history of left hip pain. The pain occurs when he is walking on uneven ground. He is able to walk without significant pain. He thinks that the pain may be related to an accident 3 months ago. No other falls or injuries. REVIEW OF SYSTEMS: complete 10 point ROS negative except at noted in the HPI - Personal History Current Tetanus/Diphtheria Vaccine: Unsure Current Tetanus Diphtheria and Acellular Pertussis (TDAP): Unsure Tetanus Vaccine Date: 2005 - Medical/Surgical History PMH: CVA, on Xarelto Pacemaker Hx Asthma: Yes Hx Chronic Respiratory Disease: No Hx Diabetes: No Hx Cardiac Disease: Yes Hx Renal Disease: No Hx Cirrhosis: No Hx Alcoholism: No Hx HIV/AIDS: No Hx Splenectomy or Spleen Trauma: No Other PMH: CAD, BPH, HLD, GERD, IBS, PPM, LAD with stents, RCA stent in september - Social History Smoking Status: Former smoker - Physical Exam Exam: General Appearance: Alert, pleasant Eyes: Pupils equal and round, no conjunctival pallor or injection ENT, Mouth: Mucous membranes moist Neck: Normal inspection Respiratory: Lungs are clear to auscultation Cardiovascular: Regular rate and rhythm Gastrointestinal: Abdomen is soft and nontender Rectal: Bright red blood Neurological: A&O, nonfocal, normal gait Skin: Warm and dry, no rash Extremities: Left hip-normal inspection, no tenderness, range of motion causes mild pain Psychiatric: Mood and affect normal Constitutional: Initial Vital Signs Temperature (C) 36.7 C 11/30/17 18:07 Heart Rate 78 11/30/17 18:07 Respiratory Rate 16 11/30/17 18:07 Blood Pressure 131/68 H 11/30/17 18:07 O2 Sat (%) 94 11/30/17 18:07 O2 Delivery Mode Room Air Allergies/Adverse Reactions: Sulfa (Sulfonamide Antibiotics) Allergy (Unknown, Verified 11/30/17 18:05) Hives hydrochlorothiazide [From Dyazide] Allergy (Verified 11/30/17 18:05) triamterene [Triamterene] Allergy (Verified 11/30/17 18:05) Home Medications: Medication Instructions Recorded Cholecalciferol Vit D3 [Vitamin D3 1,000 units PO DAILY 05/24/12 (*)] Herbals/Supplements -Info Only 1 tab PO DAILY 05/24/12 Multivitamins [Multivitamin (*)] 1 tab PO DAILY 05/24/12 Cyanocobalamin [Vitamin B12 (*)] 1,000 mcg PO DAILY 11/18/16 Propylene Glycol/Peg 400 [SYSTANE 1 drop EACHEYE PRN PRN 11/18/16 0.3-0.4% EYE DROPS] Acetaminophen [Tylenol 325mg (*)] 325 - 650 mg PO Q4HRS PRN #0 tab 12/14/16 Aspirin [Aspirin 81mg (*)] 81 mg PO DAILY #0 tab.chew 12/14/16 Benzocaine/Menthol 15/4 [Cepacol 1 ea PO Q2HRS PRN #0 lozenge 12/14/16 Lozenge] Albuterol [Proventil Inhaler HFA 1 - 2 puffs IH Q4H PRN #1 mdi 12/26/16 (*)] Amiodarone HCl [Pacerone (*)] 200 mg PO DAILY #30 tab 12/26/16 Atorvastatin Calcium [Lipitor 40 40 mg PO DAILY18 #30 tab 12/26/16 mg (*)] Budesonide/Formoterol 160/4.5 2 puffs IH BID #1 mdi 12/26/16 [Symbicort 160-4.5 Mcg Inh (*)] Cetirizine [ZyrTEC 10 mg (*)] 10 mg PO DAILY #30 tab 12/26/16 Citalopram Hydrobromide 40 mg PO DAILY #30 tablet 12/26/16 [Citalopram HBr] Ipratropium 0.06% Nasal [Atrovent 2 sprays EACHNARE DAILY PRN #1 mdi 12/26/16 0.06% Nasal] Metoprolol Tartrate [Lopressor 25 12.5 mg PO BID #15 tab 12/26/16 mg (*)] Polyethylene Glycol 3350 [Miralax 17 gm PO DAILY PRN #0 pkt 12/26/16 17 gm (*)] Sennosides/Docusate Sodium 1 - 2 tab PO BID #0 tab 12/26/16 [Senokot-S] Xarelto 11/30/17 Medical Decision Making - Diagnostics EKG Interpretation: EKG interpreted by me reveals atrial paced rhythm, rate 70, diffuse T-wave flattening, nonspecific. Interpretation: Abnormal EKG Imaging Results: Imaging Impressions Hip X-Ray 11/30/17 18:37 Impression: Negative radiographs of the left hip. ED Course/Re-evaluation: This patient presents with bright red blood per rectum. Vital signs are normal and abdomen is soft and nontender. Bright red blood present on rectal exam. Anoscopy: Bright red blood present above the anoscope, no internal hemorrhoid or other source of bleeding visualized. Initial hematocrit is 36, stable from April 2017. The hospitalist service was consulted for admission. Consulted Dr. Sutton, will see pt in am. In regards to left hip pain, x-rays are negative. No evidence of fracture, likely muscular strain. Differential Diagnosis: Differential diagnosis includes does not limited to upper GI bleed, including peptic ulcer disease, esophageal varices, and lower GI sources such as internal hemorrhoid, anal fissure, diverticular bleed, AVM, tumor - Data Points Laboratory Results: Laboratory Results 11/30/17 18:20 11/30/17 18:20 11/30/17 11/30/17 11/30/17 18:30 18:20 18:20 WBC RBC Hgb Hct MCV MCH MCHC RDW Plt Count MPV Neut % (Auto) Lymph % (Auto) [place] % (Auto) Eos % (Auto) Baso % (Auto) Nucleat RBC Rel Count Absolute Neuts (auto) Absolute Lymphs (auto) Absolute Monos (auto) Absolute Eos (auto) Absolute Basos (auto) Absolute Nucleated RBC Immature Gran % Immature Gran # PT 23.9 SEC H SEC (12.0-15.0) INR 2.13 H (0.83-1.16) APTT 34.0 SEC SEC (23.0-38.0) Sodium 134 mEq/L L mEq/L (135-145) Potassium 4.3 mEq/L mEq/L (3.3-5.0) Chloride 98 mEq/L mEq/L (97-110) Carbon Dioxide 26 mEq/l mEq/l (22-31) Anion Gap 10 mEq/L mEq/L (8-16) BUN 18 mg/dL mg/dL (7-23) Creatinine 1.0 mg/dL mg/dL (0.7-1.3) Estimated GFR > 60 Glucose 115 mg/dL H mg/dL (70-100) Calcium 9.2 mg/dL mg/dL (8.5-10.4) Stool Occult Bld Scrn POSITIVE H (NEGATIVE) 11/30/17 18:20 WBC 7.91 10^3/uL 10^3/uL (3.80-9.50) RBC 3.82 10^6/uL L 10^6/uL (4.40-6.38) Hgb 12.9 g/dL L g/dL (13.7-17.5) Hct 36.0 % L % (40.0-51.0) MCV 94.2 fL fL (81.5-99.8) MCH 33.8 pg pg (27.9-34.1) MCHC 35.8 g/dL g/dL (32.4-36.7) RDW 12.3 % % (11.5-15.2) Plt Count 191 10^3/uL 10^3/uL (150-400) MPV 10.5 fL fL (8.7-11.7) Neut % (Auto) 61.2 % % (39.3-74.2) Lymph % (Auto) 21.9 % % (15.0-45.0) [place] % (Auto) 12.0 % % (4.5-13.0) Eos % (Auto) 4.0 % % (0.6-7.6) Baso % (Auto) 0.6 % % (0.3-1.7) Nucleat RBC Rel Count 0.0 % % (0.0-0.2) Absolute Neuts (auto) 4.84 10^3/uL 10^3/uL (1.70-6.50) Absolute Lymphs (auto) 1.73 10^3/uL 10^3/uL (1.00-3.00) Absolute Monos (auto) 0.95 10^3/uL H 10^3/uL (0.30-0.80) Absolute Eos (auto) 0.32 10^3/uL 10^3/uL (0.03-0.40) Absolute Basos (auto) 0.05 10^3/uL 10^3/uL (0.02-0.10) Absolute Nucleated RBC 0.00 10^3/uL 10^3/uL (0-0.01) Immature Gran % 0.3 % % (0.0-1.1) Immature Gran # 0.02 10^3/uL 10^3/uL (0.00-0.10) PT INR APTT Sodium Potassium Chloride Carbon Dioxide Anion Gap BUN Creatinine Estimated GFR Glucose Calcium Stool Occult Bld Scrn Medications Given: Discontinued Medications Sodium Chloride (Ns) 500 mls @ 0 mls/hr IV EDNOW ONE; Wide Open PRN Reason: Protocol Stop: 11/30/17 18:42 Last Admin: 11/30/17 19:06 Dose: 500 mls Departure - Departure Disposition: [facility] Inpatient Acute Clinical Impression: BRBPR (bright red blood per rectum) Condition: Fair
[2017-11-30 18:47] LABS: PLATELET COUNT 191 10^3/uL (150-400)
[2017-11-30 18:58] LABS: INR 2.13 (0.83-1.16)
[2017-11-30 19:11] LABS: PROTIME(PATIENT) 23.9 SEC (12.0-15.0)
--- NOTE | 2017-11-30 20:00 | CPEKG ---
Heart Rate: 70 RR Interval: 857 P-R Interval: 268 QRSD Interval: 116 QT Interval: 412 QTC Interval: 445 P [place]: 43 QRS [place]: 46 EKG Severity - ABNORMAL ECG - EKG Impression: ATRIAL-PACED COMPLEXES EKG Impression: FIRST DEGREE AV BLOCK EKG Impression: PROBABLE LEFT ATRIAL ABNORMALITY EKG Impression: INCOMPLETE RIGHT BUNDLE BRANCH BLOCK Electronically Signed By: Azul Addison 30-Nov-2017 21:21:45
[2017-11-30] MEDS ORDERED: PEG 3350/NA SULF,BICARB,CL/KCL (GAVILYTE-G) 4000 ML BTL PO ONE (21:13)
[2017-11-30] MEDS ORDERED: POTASSIUM Cl (KCl) 20 MEQ in D5W NS 1,000 ML IV SCH (21:15)
[2017-11-30] MEDS ORDERED: Propylene Glycol/Peg 400 [Systane 0.3-0.4% Eye Drops] 1 DROP EACHEYE PRN (21:41)
[2017-11-30] MEDS ORDERED: ALBUTEROL 60 PUFFS/8 GM MDI IH PRN (21:41)
[2017-11-30] MEDS ORDERED: IPRATROPIUM 0.06% NASAL SPRAY EACHNARE PRN (21:41)
[2017-11-30] MEDS ORDERED: ACETAMINOPHEN 325 MG TAB PO PRN (21:41)
[2017-11-30] MEDS ORDERED: TEARS/DEXTRAN 70/HYPROMELLOSE 15 ML OPHT.BTL EACHEYE PRN (21:45)
[2017-11-30] MEDS ORDERED: ONDANSETRON 4 MG/2 ML VIAL IVP PRN (21:56)
[2017-11-30] MEDS ORDERED: ONDANSETRON DISINTEGRATING 4 MG TAB PO PRN (21:56)
--- NOTE | 2017-11-30 22:50 | GHP ---
[f rep st] HISTORY AND PHYSICAL DATE OF ADMISSION: 11/30/2017 CHIEF COMPLAINT: Hematochezia. HISTORY OF PRESENT ILLNESS: This is a 81-year-old man on aspirin as well as Xarelto who presents wit h bright red blood per rectum. He notes that he felt as though he had to past flatus and then notes that he filled his pants up with blood. He thus presented to the emergency department. He denies an y lightheadedness, chest pain, or shortness of breath today. He is on Xarelto for atrial fibrillatio n with a stroke. He is on aspirin for a history of coronary artery disease status post CABG as well as PCI. His CABG was in November 2016. He had a colonoscopy about 3 years ago. He reports that he had hemorrhoids. On my review, Dr. Lloyd did this in 2014. The operative note reports a normal yolanda earing colon. He has never had a GI bleed before. PAST MEDICAL/SURGICAL HISTORY: 1. Coronary artery disease, status post CABG. 2. CVA. 3. Paroxysmal atrial fibrillation. 4. Pacemaker. 5. BPH. 6. Hyperlipidemia. 7. GERD. 8. Irritable bowel syndrome. 9. MIGEL on CPAP. MEDICATIONS: Please see medication reconciliation. ALLERGIES: Sulfa, hydrochlorothiazide, and triamterene. FAMILY HISTORY: Reviewed and noncontributory. SOCIAL HISTORY: Lives alone with his dog. REVIEW OF SYSTEMS: A 10-point review of systems is conducted and is negative except per HPI. PHYSICAL EXAMINATION: VITAL SIGNS: Blood pressure 122/66, heart rate 71, respiration rate 18, satur ating 97% on room air, temperature 36.7. GENERAL: The patient is a pleasant man who is resting comfortably in no acute distress. HEENT: Shows him to be normocephalic, atraumatic. CARDIOVASCULAR: Regular rate and rhythm. He has a 2/6 systolic murmur. PULMONARY: Shows lungs clear to auscultation bilaterally. ABDOMEN: Soft, nontender, nondistended. SKIN: Shows no rash. : Shows no [place]. NEUROLOGIC: Shows him to be alert and oriented x3. He is moving all extremities. PSYCHIATRIC: Shows normal mood and affect. LABORATORIES: Hemoglobin is 12.9. This is consistent with his prior. INR is 2.13 sodium is 134. F OBT is positive. DATA: 1. EKG, which I personally viewed and interpreted, shows an atrially paced rhythm. This EKG is unch anged from his prior. I discussed this with Dr. Addison. Will admit to PCU. 2. Hip x-ray is negative. IMPRESSION/PLAN: 1. Gastrointestinal bleed: GI has been consulted. Plan for colonoscopy tomorrow morning. He is he modynamically stable. He is receiving a bowel prep now. We will trend his hemoglobins and transfuse below 8 or if any hemodynamic instability. 2. Coronary artery disease: We will hold his aspirin for now in the setting of an active GI bleed. He is not having any chest pain, and his EKG is unchanged. 3. History of a cerebrovascular accident and atrial fibrillation on Xarelto: We will hold Xarelto w ith an active GI bleed. I have discussed this with him. He is on a statin. 4. Atrial fibrillation: Will continue his rate control for now. 5. Obstructive sleep apnea: I have ordered a CPAP. 6. Code status: He would like to be full code full tube. 7. Venous thromboembolism risk: He is currently low risk. However, as the Xarelto wears off, he wi ll be moderate. I have placed him on SCDs. /[id number]/MODL
[2017-12-01] MEDS ORDERED: ATORVASTATIN CALCIUM 40 MG TAB PO SCH (18:00)
[2017-12-01] MEDS ORDERED: MULTIVITAMINS 1 EACH TAB PO SCH ×2 (21:41)
--- NOTE | 2017-12-01 22:29 | ASMTCMCOM ---
CM Note CM Note Notes: 12/01/2017 Case Management Note Met with pt during rounds this morning. Pt admitted for GI bleed, underwent colonoscopy this morning. Pt to stay overnight with possible d/c tomorrow. Pt lives independently with support from friend Zeeshan [phone]. There are no case management d/c needs identified. Pt is independent in ADLs. Case Management d/c poc: anticipating independent with follow up as directed. Case Managment available if needs change. Date Signed: 12/01/2017 12:04 PM Electronically Signed By:Doris Jiménez RN
--- NOTE | 2017-12-01 22:31 | GPROG ---
[f rep st] PROGRESS NOTE SUBJECTIVE: Patient feels well today. He has had no more bloody stools. He denies chest pain, shor tness of breath, or lightheadedness. He is n.p.o. after colonoscopy this morning. OBJECTIVE: VITAL SIGNS: Stable. GENERAL: Patient is awake, alert, oriented in no acute distress. HEENT: Head is atraumatic, normocephalic. Pupils equal, round, reactive to light. Extraocular mov ements intact. Oropharynx is clear. Mucous membranes are moist. NECK: Supple. There is no JVD. HEART: Regular rate and rhythm without murmur. LUNGS: Clear to auscultation bilaterally. ABDOMEN: Soft, nondiste nded, nontender. Normoactive sounds. EXTREMITIES: Without cyanosis, clubbing, or edema. NEUROLOGI C: Grossly nonfocal. ASSESSMENT/PLAN: 1. Lower gastrointestinal bleed. Colonoscopy today per Gastroenterology showed arteriovenous malfor mations. These were cauterized. He has had no further bleeding. His hemoglobin has been stable arou nd 12. His aspirin and Xarelto continue to be held. I will discuss with Gastroenterology when it is safe to resume these, though I would suspect we will hold these for 1-2 weeks. 2. Coronary artery disease with history of coronary artery bypass graft. As above, his aspirin is c urrently held. 3. Hyperlipidemia. Continue statin. 4. Scoliosis. Continue proton pump inhibitor. 5. Obstructive sleep apnea. Continue home CPAP. DISPOSITION: Continue inpatient, possible discharge tomorrow if he has no further bleeding. /[id number]/MODL
[2017-12-02] MEDS: BUDESONIDE/FORMOTEROL 160/4.5 60 PUFFS/MDI IH SCH ×2 (05:11→08:15)
[2017-12-02] MEDS: CETIRIZINE 10 MG TAB PO SCH ×2 (05:11→08:32)
[2017-12-02] MEDS: DILTIAZEM CD 120 MG CAP PO SCH ×2 (05:11→08:32)
[2017-12-02] MEDS: buPROPion SR 150 MG TAB PO SCH ×2 (05:11→08:32)
[2017-12-02] MEDS: POTASSIUM CL 10 MEQ TAB PO SCH ×2 (05:12→08:32)
[2017-12-02 07:31] VITALS: BP 125/59
--- NOTE | 2017-12-02 11:30 | PDMN ---
Medical Necessity Medical necessity: est los>2mn for GIB/BRBPR, on ASA and Xarelto; admit for GI consult, colonoscopy, trend H&H, and transfuse prn; comorbid afib, CAD, MIGEL, and hx CVA; per order and H&P 11/30/17
--- NOTE | 2017-12-02 14:59 | GIREPORT ---
[facility] Patient Name: PARVEEN JERONIMO Rpt#: [id number] Unit Number: [id number] Attending/ER Physician: Nixon Rowland MD Patient Type: ADM IN Adm Date/Source: 11/30/17 EMR Discharge Date: Primary Carrier: MEDICARE INPATIENT [facility] - Endoscopy Department Patient Name: Parveen Jeronimo Procedure Date: 12/01/2017 9:16 AM Patient Type: Inpatient Attending / ER Physician: Julián Sutton MD Procedure: Colonoscopy Indications: Note dictated, consult appreciated. Hematochezia. Hct stable, close to baseline. On xarelto. Providers: Julián Sutton MD Referring MD: Mauricio Garcia MD; [facility] Hospitalist service Medicines: Fentanyl 100 micrograms IV, Midazolam 5 mg IV Complications: No immediate complications. Description of Procedure: After obtaining informed consent, the scope was passed under direct vision. Throughout the procedure, the patient's blood pressure, pulse, and oxygen saturations were monitored continuously. The Colonoscope with irrigation channel was introduced through the anus and advanced to the terminal ileum. Findings: No active bleeding. The terminal ileum appeared normal. Small, superficial anal fissure, anteriorly. Very small hypertrophied anal papillae. Small, superficial rectal ulcer (most likely from a hard stool). Internal hemorrhoids were found. The hemorrhoids were small. A single medium-sized angioectasia without bleeding was found in the rectum. Coagulation for bleeding prevention using bipolar probe was successful. One diverticuli seen in the transverse colon. Estimated Blood Loss: Estimated blood loss: none. Post Op Diagnosis: - Overall, suspect limited rectal bleeding due to the above anorectal disease, exacerbated by anticoagulation. Now, no further significant bleeding. Recommendation: - feed - buffcap I.V. - Colace bid for three weeks; then, can stop. - Benefiber 1 heaping tablespoon, mixed in a large glass of juice or water, daily senior living. - Recommend keeping anticoagulation low-therapeutic. From a G.I. standpoint, can d/c home. I will sign off. Please call if we can be of further help [phone] Thank you for allowing me to help in the management of this patient. Attending Participation: I personally performed the entire procedure. Lesley Gallego MD Julián Sutton MD 12/01/2017 10:07:03 AM This report has been signed electronicallyPeter MD Lesley Number of Addenda: 0 Note Initiated On: 12/01/2017 9:16 AM Total Procedure Duration Time 0 hours 27 minutes 29 seconds [email or web address] NOTE: At the time of scrap cutter of this report, there may have been blank(s) to be edited by the dictating clinician. By signing this report, I attest that I have reviewed any blanks in the document, and have either corrected them and/or have no further information to add. Julián Sutton MD, FACG 12/01/17 1007 [id number] T: PROVATION CC: Mauricio Garcia MD; Nixon Rowland MD
--- NOTE | 2017-12-02 15:38 | GIREPORT ---
[facility] - Endoscopy Department Patient Name: Parveen Jeronimo Procedure Date: 12/01/2017 9:16 AM Patient Type: Inpatient Attending MD/ ER Physician: Julián Sutton MD Procedure: Colonoscopy Indications: Note dictated, consult appreciated. Hematochezia. Hct stable, close to baseline. On xarelto. Providers: Julián Sutton MD Referring MD: Mauricio Garcia MD; [facility] Hospitalist service Medicines: Fentanyl 100 micrograms IV, Midazolam 5 mg IV Complications: No immediate complications. Description of Procedure: After obtaining informed consent, the scope was passed under direct vis ion. Throughout the procedure, the patient's blood pressure, pulse, and oxyg en saturations were monitored continuously. The Colonoscope with irrigatio n channel was introduced through the anus and advanced to the terminal il eum. Findings: No active bleeding. The terminal ileum appeared normal. Small, superficial anal fissure, anteriorly. Very small hypertrophied anal papillae. Small, superficial rectal ulcer (most likely from a hard stool). Internal hemorrhoids were found. The hemorrhoids were small. A single medium-sized angioectasia without bleeding was found in the re ctum. Coagulation for bleeding prevention using bipolar probe was successful. One diverticuli seen in the transverse colon. Estimated Blood Loss: Estimated blood loss: none. Post Op Diagnosis: - Overall, suspect limited rectal bleeding due to the above anorectal disease, exacerbated by anticoagulation. Now, no further significant bleeding. Recommendation: - feed - buffcap I.V. - Colace bid for three weeks; then, can stop. - Benefiber 1 heaping tablespoon, mixed in a large glass of juice or wa ter, daily prison. - Recommend keeping anticoagulation low-therapeutic. From a G.I. standpoint, can d/c home. I will sign off. Please call if w e can be of further help [phone] Thank you for allowing me to help in the management of this patient. Attending Participation: I personally performed the entire procedure. Lesley Gallego MD Julián Sutton MD 12/01/2017 10:07:03 AM This report has been signed electronicallyPeter MD Lesley Number of Addenda: 0 Note Initiated On: 12/01/2017 9:16 AM Total Procedure Duration Time 0 hours 27 minutes 29 seconds [email or web address]
== END 2017-12-02 11:30 | disposition home or self-care (01) | DRG 379 ==
LOC: F2W 20:49
PROVIDERS: ADMIT Student in an Organized Health Care Education/Training Program; ATTEND Student in an Organized Health Care Education/Training Program
PROC: 0D5P8ZZ Destruction of Rectum, Via Natural or Artificial Opening Endoscopic (ICD-10-PCS; principal; 2017-12-01 09:18)
PROC: 0DJD8ZZ Inspection of Lower Intestinal Tract, Via Natural or Artificial Opening Endoscopic (ICD-10-PCS; principal; 2017-12-01 09:18)
DX: K55.21 Angiodysplasia of colon with hemorrhage (principal); K64.9 Unspecified hemorrhoids; I48.0 Paroxysmal atrial fibrillation; I25.10 Atherosclerotic heart disease of native coronary artery without angina pectoris; N40.0 Benign prostatic hyperplasia without lower urinary tract symptoms; E78.5 Hyperlipidemia, unspecified; K21.9 Gastro-esophageal reflux disease without esophagitis; K58.9 Irritable bowel syndrome, unspecified; G47.33 Obstructive sleep apnea (adult) (pediatric); Z79.01 Long term (current) use of anticoagulants; Z79.82 Long term (current) use of aspirin; Z95.1 Presence of aortocoronary bypass graft; Z86.73 Personal history of transient ischemic attack (TIA), and cerebral infarction without residual deficits

== ENCOUNTER → 2018-05-03 | Outpatient (CLI) | payer OTHER, MEDICARE | LOC: FIMAGING 15:10 | PROVIDERS: ATTEND Internal Medicine | DX: M25.552 Pain in left hip (principal); M54.5 Low back pain; M51.37 Other intervertebral disc degeneration, lumbosacral region ==

== ENCOUNTER → 2018-07-05 | Outpatient (CLI) | payer OTHER, MEDICARE | LOC: FIMAGING 15:32 | PROVIDERS: ATTEND Specialist | DX: R06.00 Dyspnea, unspecified (principal) ==